=== PATIENT | male | born 1940 | race Caucasian/White ===

== ENCOUNTER 2025-09-28 19:49 | Observation (INO) | payer MEDICARE, SELFPAY ==
[2025-09-28] VITALS (7 sets, daily range): BP systolic 153–247; BP diastolic 57–101; PULSE 54; RESP 14–16; TEMP 37; O2SAT 97–100
--- NOTE | ~2025-09-28 | US_ITS ---
EXAMINATION: US retroperitoneal duplex ltd DATE: 09/30/2025 8:50 HOSPITALITY DIRECTOR INDICATION: Hypertension TECHNIQUE: Multiple grayscale, color Doppler, and pulsed Doppler images of the kidneys and renal arteries were obtained. COMPARISON: None. FINDINGS: EXAMINATION: US retroperitoneal duplex ltd DATE: 09/30/2025 8:52 HOSPITALITY DIRECTOR INDICATION: Hypertension TECHNIQUE: Multiple grayscale, color Doppler, and pulsed Doppler images of the kidneys and renal arteries were obtained. COMPARISON: None. FINDINGS: Status post right nephrectomy. Aorta systolic velocity 1 14 cm/s. Peak systolic velocity in the left renal artery is 1 77 cm/s. Notes: renal artery stenosis is >=180-200 cm/s or >3.5:1 ratio of renal artery velocity to aorta. This correlates with >50-60% stenosis. IMPRESSION: 1. No Doppler evidence of renal artery stenosis. Reviewed, dictated and finalized at location I. ITALITY DIRECTOR
--- NOTE | ~2025-09-28 | XR_ITS ---
XR chest 1V portable 09/28/2025 20:36 Indication: Hypertension. Nausea. Procedure: AP portable chest Comparison: No prior studies for comparison. Findings: Asymmetric left-sided airspace disease, compatible with pneumonia. Status post median sternotomy for CABG. Cardiomegaly. No significant effusion. No pneumothorax. No acute osseous abnormality. Impression: 1: Left-sided airspace disease, compatible with pneumonia. Reviewed, dictated and finalized at location I. TRICIAN CRANE MAINTENANCE Impression: 1: Left-sided airspace disease, compatible with pneumonia.
--- NOTE | 2025-09-28 20:20 | ED.GENADULT ---
HPI - General Adult General Chief complaint: Recheck/Abnormal Lab/Rx Stated complaint: UNCONTROLLED HTN Time Seen by Provider: 09/28/25 19:55 Source: patient and family Mode of arrival: EMS Limitations: no limitations History of Present Illness HPI narrative: Patient is an 85-year-old male presents to the emergency department complaining of a high blood pressure. Patient is and a assisted living facility, gets his blood pressure checked frequently, this afternoon it was high greater than 200, has been dealing with high blood pressures for some time now and is on multiple blood pressure medications and taking them as prescribed without any recent changes, also has p.r.n. medications that are given for a systolic blood pressure greater than 200, to get the p.r.n. medications as afternoon blood pressure remained persistently high. Patient is in the afternoon/ evening as he has been feeling well lately with nausea and fatigue with today being the worst. Patient denies any pain, difficulty breathing, focal weakness, confusion, decreased urine output. 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 Patient has Parkinson's. Patient is also had low blood pressures in the past and has been having difficulty getting his blood pressure under control. Patient denies any red vision changes, vomiting, fever. Related Data Allergies Allergy/AdvReac Type Severity Reaction Status Date / Time No Known Allergies Allergy Verified 09/28/25 20:03 Review of Systems Review of Systems: A 10 system review of systems was completed on the patient and is negative except for what is stated in the HPI. Nursing and ancillary documentation was reviewed. Exam Narrative: CONST: No acute distress. Well nourished. HENMT: Head is normocephalic and atraumatic. Moist mucous membranes. No posterior oropharynx erythema. EYES: No scleral icterus. No conjunctival injection or pallor. PERRL. NECK: No meningeal signs. RESP: Able to speak in full sentences. Normal respiratory effort. CTAB. CARDIO: Bradycardic rate. Regular rhythm. 2+ DP and radial pulses bilaterally. GI: Nondistended. No tenderness to palpation. Soft. : No CVA tenderness to palpation. SKIN: No rashes or lesions noted on exposed skin. NEURO: Oriented x3. No focal neurological deficits. EXTREM/MSK/BACK: No pedal edema. PSYCH: Normal affect. Course Vital Signs Vital signs: Vital Signs Temperature 98.6 F 09/28/25 19:55 Pulse Rate 54 L 09/28/25 19:55 Respiratory Rate 16 09/28/25 19:55 Blood Pressure 247/101 H 09/28/25 19:55 Pulse Oximetry 100 09/28/25 19:55 Oxygen Delivery Room Air 09/28/25 19:55 Temperature 98.6 F 09/28/25 19:55 Pulse Rate 60 09/29/25 00:03 Respiratory Rate 15 09/29/25 00:03 Blood Pressure 143/62 H 09/29/25 00:03 Pulse Oximetry 97 09/29/25 00:03 Oxygen Delivery Room Air 09/28/25 19:55 MDM MDM Narrative Medical decision making narrative: Patient presents with the above complaint. Initial vitals are remarkable for Blood pressure 247/101, pulse of 54. Physical examination as noted above. Plan discussed: laboratory analysis, EKG, imaging. Patient ordered hydralazine, Zofran. [facility] records reviewed showing that patient is on carbidopa levodopa, donepezil, levothyroxine, lisinopril 10 mg daily, metoprolol 25 mg b.i.d., quetiapine, trazodone, tamsulosin. Patient also has p.r.n. hydralazine 10 mg tablet every 6 hours as needed for SBP greater than 200 or DBP greater than 90. On reassessment patient resting comfortably, blood pressure is much improved to 100 50s over 50s, patient notes that he is due for his carbidopa levodopa, medication orders, patient notes that started has some chest pressure over the past to and 15 minutes, notes that he gets is when he is due for his carbidopa levodopa, will obtain a 3 hour troponin, family and patient for results of plan of care. Discussed likely increase of hydralazine as patient is on 10 mg p.o. p.r.n. and can increase to 25 mg p.r.n. for better blood pressure control at home. On repeat assessment patient is resting comfortably. No acute distress, denies any further chest discomfort. Repeat troponin came back it 0.03 which is greater than a 20% change. I spoke with the hospitalist on-call who has accepted the patient for admission. Differential Diagnosis Differential Diagnosis: hypertensive emergency, hypertension, metabolic derangement, electrolyte derangement, acute kidney injury, UTI, thyroid dysfunction. Lab Data [facility] Lab Attestation statement: I personally reviewed the patient's lab results. Lab results narrative: CBC reveals a hemoglobin of 11.4. Comprehensive metabolic panel reveals a sodium 135. Initial troponin is 0.023 with repeat troponin of 0.030. TSH is 3.78. Total creatine kinase is 109. Magnesium is 2.2. Urinalysis is without any significant abnormalities. Influenza and COVID and RSV testing are negative. 09/28/25 20:43 09/28/25 20:43 Labs: Lab Results 09/28/25 09/28/25 Range/Units 20:43 23:41 WBC 5.8 (4.5-10.0) K/mm3 RBC 3.51 L (4.6-6.20) M/mm3 Hgb 11.4 L (14.0-18.0) g/dL Hct 35.0 L (42.0-52.0) % MCV 99.7 (80-100) fl MCH 32.5 (26-34) pg MCHC 32.6 (32-36) g/dl RDW 12.5 (11.5-14.5) % Plt Count 167 (150-375) k/mm3 MPV 8.3 (7.4-10.4) fl Immature Gran % (Auto) 0.2 (0-0.5) % Neut % (Auto) 56.1 (45.5-73.1) % Lymph % (Auto) 26.0 (18.3-44.2) % Power % (Auto) 7.8 (2.6-8.5) % Eos % (Auto) 9.0 H (0-4.4) % Baso % (Auto) 0.9 (0.2-1.2) % Lymph # (Auto) 1.50 (0.9-3.2) K/mm3 Power # (Auto) 0.5 (0.1-0.6) K/mm3 Eos # (Auto) 0.5 H (0-0.3) K/mm3 Baso # (Auto) 0.1 (0.0-0.1) K/mm3 Abs Immat Gran (auto) 0.01 (0.00-0.031) K/mm3 Absolute Neuts (auto) 3.3 (1.3-6.7) K/mm3 Absolute Nucleated RBC 0.000 (0.0-0.012) K/mm3 Nucleated RBC % 0.0 (0.0-0.2) % Sodium 135 L (137-145) mmol/L Potassium 4.2 (3.4-5.0) mmol/L Chloride 105 (98-107) mmol/L Carbon Dioxide 28 (22-30) mmol/L Anion Gap 2 L (4-12) mmol/L BUN 16 (9-20) mg/dL Creatinine 1.30 (0.7-1.3) mg/dL Estim Creat Clear Calc 35 ml/min Estimated GFR 53 L (59 - ) Glucose 95 (65-110) mg/dL Calcium 8.9 (8.4-10.2) mg/dL Magnesium 2.2 (1.6-2.3) mg/dL Total Bilirubin 0.4 (0.2-1.3) mg/dL AST 25 (17-59) U/L ALT 6 (6-50) U/L Alkaline Phosphatase 91 (38-126) U/L Total Creatine Kinase 109 (55-170) U/L Troponin I 0.023 0.030 D (0.000-0.034) ng/mL Total Protein 6.7 (6.3-8.2) g/dL Albumin 3.8 (3.5-5.1) g/dL TSH (Reflex) 3.780 (0.465-4.68) uIU/mL Urine Color Yellow (Yellow) Urine Appearance Clear (Clear) Urine pH 7.5 (5.0-9.0) Ur Specific [place] 1.011 (1.001-1.035) Urine Protein Trace (Negative) mg/dL Urine Glucose (UA) Negative (Negative) mg/dL Urine Ketones Negative (Negative) mg/dL Ur Blood (Man) Negative (Negative) Urine Nitrate Negative (Negative) Urine Bilirubin Negative (Negative) Urine Urobilinogen 0.2 (<2.0) mg/dL Leukocyte Esterase Rfl Negative (Negative) KELLEN/UL Urine RBC 0-2 (0-2) /hpf Urine WBC 0-5 (0-3) /hpf Ur Squamous Epith Cells None seen (Few) /hpf Urine Bacteria None seen /hpf Urine Casts 0-2 Influenza A (RT-PCR) Negative (Negative) Influenza B (RT-PCR) Negative (Negative) RSV (RT-PCR) Negative (Negative) SARS-CoV-2 RNA (RT-PCR) Negative (Negative) Imaging Data Attestation: I personally reviewed and interpreted this imaging study as follows: My impression: No old to compare to, no obvious acute cardiopulmonary process. ECG Data EKG #1: Attestation: I personally reviewed and interpreted this ECG as follows: ECG completion date: 09/28/25 ECG completion time: 20:44 Interpretation: rate of 53, rhythm is sinus bradycardia, axis is indeterminate, QRS duration is 120 milliseconds, possible right ventricular conduction delay, borderline ST depression in lead V5, baseline artifact present, no ST elevation, no overt T-wave abnormalities. Discharge Plan Discharge Clinical Impression: Hypertension, Chest pain Patient Disposition: Still a Patient Condition: Guarded Prognosis Patient Language: Canadian Follow-up/Referrals: UNKNOWN,DOCTOR [Primary Care Provider] Time of Disposition: 00:40 Quality HEART score for chest pain patients History: slightly suspicious ECG: non specific repolarization disturbance/LBTB/PM Age: > or = to 65 years Risk factors: > or = to 3 risk factors of atherosclerotic disease Troponin: < or = to 1x normal limit Heart score: 5
--- NOTE | 2025-09-28 20:21 | ECG_ITS ---
Test Date: 2025-09-28 20:44:07 Measurements Intervals [place] Rate: 53 P: 22 ID: [id number] QRS: -6 QRSD: 120 T: 36 QT: 455 QTc: 431 Interpretive Statements SINUS BRADYCARDIA POSSIBLE RIGHT VENTRICULAR CONDUCTION DELAY CANNOT R/O SEPTAL INFARCT, AGE INDETERMINATE BORDERLINE ST-T WAVE ABNORMALITY- HIGH LATERAL LEADS BASELINE ARTIFACT- I, II, III, AVR, AVL, AVF, V1-V6 ABNORMAL ECG No previous ECG available for comparison Electronically Signed On 09-29-2025 06:13:12 MASTER FISHER by Lanre Krueger D.O.
[2025-09-28] MEDS: ONDANSETRON INJ 4 MG/2 ML VIAL IV PUSH (20:52)
[2025-09-28 21:11] LABS: Hematocrit 35.0 % (42.0-52.0); Hemoglobin 11.4 g/dL (14.0-18.0); Immature Granulocyte Percent A 0.2 % (0-0.5); Lymphocytes Absolute Auto 1.50 K/mm3 (0.9-3.2); Mean Corpuscular HGB Conc 32.6 g/dl (32-36); Mean Corpuscular Hemoglobin 32.5 pg (26-34); Mean Corpuscular Volume 99.7 fl (80-100); Nucleated Red Blood Cells Absolute Auto 0.000 K/mm3 (0.0-0.012); Nucleated Red Blood Cells Perc 0.0 % (0.0-0.2); Platelet Count Result 167 k/mm3 (150-375); Red Blood Count 3.51 M/mm3 (4.6-6.20); White Blood Count 5.8 K/mm3 (4.5-10.0)
[2025-09-28 21:15] LABS: Add Urine Microscopic? YES; Appearance Urine Clear (Clear); Glucose Urine UA Negative (Negative); Leukocyte Esterase Ur Negative LEU/UL (Negative); Nitrate Urine Negative (Negative); Non Pathogenic Casts 0-2; Specific Grav Ur 1.011 (1.001-1.035)
[2025-09-28 21:22] LABS: Alanine Aminotransferase 6 U/L (6-50); Albumin Level 3.8 g/dL (3.5-5.1); Alkaline Phosphatase 91 U/L (38-126); Anion Gap 2 mmol/L (4-12); Aspartate Amino Transferase 25 U/L (17-59); Bilirubin,Total 0.4 mg/dL (0.2-1.3); Blood Urea Nitrogen 16 mg/dL (9-20); Calcium 8.9 mg/dL (8.4-10.2); Carbon Dioxide 28 mmol/L (22-30); Chloride 105 mmol/L (98-107); Creatine Kinase 109 U/L (55-170); Estimated CRCL calculation 35 ml/min; Estimated Glomerular Filt Rate 53; Glucose 95 mg/dL (65-110); Magnesium 2.2 mg/dL (1.6-2.3); Potassium 4.2 mmol/L (3.4-5.0); Sodium 135 mmol/L (137-145); Total Protein 6.7 g/dL (6.3-8.2)
[2025-09-28 21:33] LABS: Troponin I 0.023 ng/mL (0.000-0.034)
[2025-09-28 21:49] LABS: Influenza A QL RT-PCR Negative (Negative); Influenza B QL RT-PCR Negative (Negative); RSV RNA, RT-PCR Negative (Negative); SARS-CoV-2 RNA PCR Negative (Negative)
[2025-09-28 21:54] LABS: Thyroid Stimulating Hormone Reflex 3.780 uIU/mL (0.465-4.68)
[2025-09-28] MEDS: CARBIDOPA/LEVODOPA 25/100 MG CR TABLET 2 TABLET PO (22:52)
[2025-09-28] MEDS: ASPIRIN 81 MG CHEWABLE TABLET 324 MG PO (22:52)
[2025-09-28] MEDS: SODIUM CHLORIDE 0.9% IV 1,000 ML 150 ML IV CONT (22:53)
--- NOTE | 2025-09-28 23:43 | ECG_ITS ---
Test Date: 2025-09-28 23:51:18 Measurements Intervals [place] Rate: 61 P: 35 IL: 194 QRS: 4 QRSD: 121 T: 33 QT: 450 QTc: 457 Interpretive Statements SINUS RHYTHM POSSIBLE RIGHT VENTRICULAR CONDUCTION DELAY CANNOT R/O SEPTAL INFARCT, AGE INDETERMINATE BASELINE ARTIFACT- I, III, AVR, AVL ABNORMAL ECG Compared to ECG 09/28/2025 20:44:07 HEART RATE HAS INCREASED Electronically Signed On 09-29-2025 06:17:30 ELEVATOR ERECTOR by Lanre Krueger D.O.
[2025-09-29] VITALS (22 sets, daily range): BP systolic 142–208; BP diastolic 51–87; PULSE 53–71; RESP 13–19; TEMP 36.3–36.8; O2SAT 95–100
[2025-09-29 00:16] LABS: Troponin I 0.030 ng/mL (0.000-0.034)
--- NOTE | 2025-09-29 02:43 | ECG_ITS ---
Test Date: 2025-09-29 02:49:39 Measurements Intervals [place] Rate: 60 P: 4 MD: 149 QRS: -9 QRSD: 118 T: 32 QT: 440 QTc: 442 Interpretive Statements SINUS RHYTHM INCOMPLETE RIGHT BUNDLE BRANCH BLOCK BASELINE ARTIFACT- I, III, AVR, AVL BORDERLINE ECG Compared to ECG 09/28/2025 23:51:18 NO SIGNIFICANT CHANGE Electronically Signed On 09-29-2025 06:19:01 ACCOUNT DEVELOPMENT MANAGER by Lanre Krueger D.O.
[2025-09-29] MEDS: ACETAMINOPHEN 500 MG TABLET 1000 MG PO (03:37)
[2025-09-29 03:40] LABS: Troponin I 0.060 ng/mL (0.000-0.034)
--- NOTE | 2025-09-29 03:53 | WPCEDHO ---
ED Hand Off Checklist All vitals saved: y IV Site documented: y All med administrations documented: y Triage Note Triage Note via ems from Aguilar Senior 09/28/25 19:55 Living with c/o htn crisis. pt bp has been in the 240's since 4pm today despite taking his home dose of htn meds. Normally goes to [facility] but ems came here due to snow. Allergies No Known Allergies Allergy (Verified 09/28/25 20:03) Active Medications including assessments/comments Sodium Chloride (Normal Saline Iv) 1,000 mls @ 150 mls/hr IV CONT .[id number] STA Stop: 09/29/25 04:31 Last Admin: 09/28/25 22:53 Dose: 150 mls/hr Documented By: VALERIE Infusion/Titration Document 09/28/25 22:53 VALERIE (Rec: 09/28/25 22:53 VALERIE [id number]) Intake IV Site Peripheral Access Left Antecubital Container Volume 1,000 Waste Amount 0 Dosing Infusion Rate 150 Cumulative Dose Not Applicable Increase/Decrease Started Elapsed Time Elapsed Time ( 0m minutes) Administered/Completed Medications Discontinued Medications Acetaminophen (Acetaminophen 500 Mg Tablet) 1,000 mg PO ONCE ONE Stop: 09/29/25 03:31 Last Admin: 09/29/25 03:37 Dose: 1,000 mg Documented By: CARLENE Aspirin (Aspirin 81 Mg Chewable Tablet) 324 mg PO ONCE STA Stop: 09/28/25 22:05 Last Admin: 09/28/25 22:52 Dose: 324 mg Documented By: VALERIE Carbidopa/Levodopa (Carbidopa/Levodopa 25/100 Mg Cr Tablet) 2 tablet PO ONCE STA Stop: 09/28/25 21:55 Last Admin: 09/28/25 22:52 Dose: 2 tablet Documented By: VALERIE Hydralazine HCl (Hydralazine Hcl 20 Mg/Ml Vial) 10 mg IV PUSH ONCE ONE Stop: 09/28/25 20:24 Last Admin: 09/28/25 20:52 Dose: 10 mg Documented By: CARLENE Ondansetron HCl (Ondansetron Inj 4 Mg/2 Ml Vial) 4 mg IV PUSH ONCE STA Stop: 09/28/25 20:24 Last Admin: 09/28/25 20:52 Dose: 4 mg Documented By: CARLENE Interventions/Assessments IV / Saline Lock, Insert Start: 09/28/25 19:41 Freq: Status: Active Protocol: Document 09/28/25 20:02 CARLENE (Rec: 09/28/25 20:02 SAK [id number]) IV Assessment Peripheral Access Left Antecubital IV Catheter Access Initiated IV Insertion Date 09/28/25 IV Insertion Time 20:02 Catheter Gauge 18 IV Insertion 1 Attempts Ultrasound Used for No Placement IV Site Assessment WNL IV Care and WNL Maintenance Last Vital Signs Temperature 98.6 F 09/28/25 19:55 Pulse Rate 60 09/29/25 02:25 Respiratory Rate 16 09/29/25 02:25 Pulse Oximetry 99 09/29/25 02:25 Blood Pressure 171/75 H 09/29/25 02:25 Blood Pressure Mean 107 09/29/25 02:25 Blood Pressure Position Supine 09/29/25 02:25 Oxygen Delivery Room Air 09/28/25 19:55 Weight 80 kg 09/28/25 19:55 Last Result - Abnormals Only RBC 3.51 M/mm3 (4.6-6.20) L 09/28/25 20:43 Hgb 11.4 g/dL (14.0-18.0) L 09/28/25 20:43 Hct 35.0 % (42.0-52.0) L 09/28/25 20:43 Eos % (Auto) 9.0 % (0-4.4) H 09/28/25 20:43 Eos # (Auto) 0.5 K/mm3 (0-0.3) H 09/28/25 20:43 Sodium 135 mmol/L (137-145) L 09/28/25 20:43 Anion Gap 2 mmol/L (4-12) L 09/28/25 20:43 Estimated GFR 53 (59-) L 09/28/25 20:43 Troponin I 0.060 ng/mL (0.000-0.034) H* D 09/29/25 03:07 Most Recent Suicide Severity Rating Suicide Severity Rating NO RISK INDICATED 09/28/25 19:55
--- NOTE | 2025-09-29 04:07 | ADMGEN ---
This patient, Spencer Ayoub, was admitted to IMU Room 206-01. Patient/family oriented to hospital policies and general routines including ID bracelet, bed and alarms, visiting hours, pain management, procedures, bathroom and other care routines, personal items, smoking policy, room service/diet, and visiting hours. Information on how to activate the Rapid Response Team has been discussed. Patient/Family are encouraged to report perceived risks to care and to ask questions if they do not understand what they are told or what they should do.
--- NOTE | 2025-09-29 05:58 | P.HP_ITS ---
H&P: HPI History of Present Illness Date/Time: 09/29/25 05:58 Chief Complaint: Chest pain and uncontrolled hypertension. Narrative: This is an 85-year-old male patient who resides at [facility]. Has a history of Parkinson's and hypertension. The patient was brought to the emergency room because his blood pressures have been running high. The is at the bedside offering history. She stated that his blood pressures sequence go up and down. The patient was recently prescribed a p.r.n. high blood pressure medication.The patient has been feeling unwell for several days . The patient typically has all of his care at [facility]. However the ambulance was not able to take him to [facility] because of the weather. His H&H is 11.4 and 35.0. Sodium 135 with an anion gap of 2. Troponin 0.23, 0.03, 0.060. 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 The patient stated that he was having some chest pressure when his blood pressure was elevated. EKG was read as incomplete right bundle-branch block. Borderline EKG. Heart rate 60. His heart score is 5. Chest x-ray was performed and nothing acute seen on the chest x-ray however there is evidence of open-heart surgery. The patient was given his dose of carbidopa levodopa and an aspirin in the emergency room. Patient's blood pressure is were initially 240/87. The lowest blood pressure noted was 165/71. The patient is being admitted to observation status on the date of service of 09/29/2025 Review of Systems Constitutional: Constitutional: Reports as per HPI and Reports no additional constitutional complaints Eyes: Eyes: Reports as per HPI and Reports no additional eye complaints ENT: Reports system reviewed and no additional complaints, except as documented and Reports Normal hearing present Cardiovascular: Cardiovascular: Reports no additional cardiovascular complaints Respiratory: Respiratory: Reports as per HPI and Reports no additional respiratory complaints Gastrointestinal: Gastrointestinal: Reports as per HPI and Reports no additional gastrointestinal complaints Musculoskeletal: Musculoskeletal: Reports no additional musculoskeletal complaints Integumentary/Breasts: Skin/Breast: Reports system reviewed and no additional complaints, except as docu Neurologic: Reports system reviewed and no additional complaints, except as documented and Reports Normal hearing present Psychiatric: Psychiatric: Reports no additional psychiatric complaints and Reports as per HPI Hematologic/Lymphatic: Hematologic/Lymphatic: Reports no additional hematologic/lymphatic complaints Allergic/Immunologic: Allergic/Immunologic: Reports no additional allergic/immunologic complaints REPLACED BY [facility] Past Medical History Medical History (Updated 09/29/25 @ 16:52 by Kerrie Law MD) Hypothyroidism CABG (coronary artery bypass graft) planned 5 vessel Retinal detachment Several years ago. 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 He has 2 children and she has 2 children. He is retired. Code status: DNR Smoking status: Never smoker Alcohol intake: never Substance use: never Lack of Transportation: No Lack of Food: Never True Current Housing: I Have Housing Concerned About Future Housing: No Difficulty Paying Gas/Electric Bills: No Difficulty Paying for Meds: No Currently Unemployed: No Education: Decline to Answer Difficulty w/ Childcare or Family Care: No Spiritual care concerns: No Meds Home Medications and Allergies Home Medications ?Medication ?Instructions ?Recorded ?Confirmed ?Type acetaminophen 500 mg tablet 500 mg PO DAILY 09/29/25 1 11/30/24 History aspirin,buffered (calcium 325 tablet PO HS 09/29/25 History carbonate-magnesium) 325 mg tablet (Tri-Buffered Aspirin) carbidopa 25 mg-levodopa 100 mg See Rx Instructions .R oute .COMPLEX 09/29/25 09/29/25 History tablet carbidopa ER 50 mg-levodopa 200 mg 1 tablet PO DAILY@1 900 09/29/25 09/29/25 History tablet,extended release cyanocobalamin (vitamin B-12) 500 500 mcg PO DAILY 12/2309/29/25 History mcg tablet donepezil 23 mg tablet 23 mg PO DAILY 09/29/2512/23 History ezetimibe 10 mg tablet 10 mg PO DAILY 09/29/2512/23 History levothyroxine 112 mcg tablet 112 mcg PO DAILY 09/29/25 09/29/25 History metoprolol tartrate 25 mg tablet 25 mg PO BID 09/29/25 09/29/25 History polyethylene glycol 3350 17 17 g PO DAILY@0800 5 09/29/25 History gram/dose oral powder quetiapine 25 mg tablet 25 mg PO DAILY@0800 09/29/25 09/29/25 History quetiapine 50 mg tablet 50 mg PO HS 09/29/25 5 History white petrolatum-mineral oil 94 1 applic EACH EYE HS 1 11/30/24 09/29/25 History %-3 % eye ointment hydralazine 25 mg tablet 25 mg PO TID PRN hypertensio n #90 09/30/25 Rx tabs nifedipine 30 mg tablet,extended 30 mg PO DAILY #30 ta bs 09/30/25 Rx release tamsulosin 0.4 mg capsule 0.4 mg PO DAILY 09/30/2501/20 History Allergies Allergy/AdvReac Type Severity Reaction Status Date / Time No Known Allergies Allergy Verified 09/29/25 04:07 Vital Signs Vital Signs - 24 hr 09/28/25 19:55 09/28/25 20:11 09/28/25 20:15 Temperature 98.6 F Pulse Rate 54 L Respiratory Rate 16 Blood Pressure 247/101 H Pulse Oximetry 100 100 99 Oxygen Delivery Room Air 09/28/25 20:19 09/28/25 20:30 09/28/25 20:32 Temperature Pulse Rate Respiratory Rate Blood Pressure 240/87 H 204/89 H Pulse Oximetry 98 98 98 Oxygen Delivery 09/28/25 20:51 09/29/25 00:03 09/29/25 02:25 Temperature Pulse Rate 54 L 60 60 Respiratory Rate 14 15 16 Blood Pressure 153/57 H 143/62 H 171/75 H Pulse Oximetry 97 97 99 Oxygen Delivery 09/29/25 02:46 09/29/25 03:59 09/29/25 04:30 Temperature 97.6 F Pulse Rate 62 67 67 Respiratory Rate 19 13 18 Blood Pressure 165/71 H 189/83 H 201/87 H Pulse Oximetry 96 97 95 Oxygen Delivery Exam Const: General: cooperative, healthy appearing, no acute distress, well developed, awake, Physically active, average body habitus and well nourished Nutritional Appearance: average body habitus and well nourished Orientation/consciousness: oriented to person and oriented to place HENMT: Head: normal to inspection, No palpable skull fracture present, normocephalic, atraumatic and abrasion Eyes: General: appearance normal, both eyes and all related structures Alignment and Position: alignment normal Periorbital: periorbital findings normal Eyelids: eyelids normal Other: I did not assess the right eye as it is covered. Neck: Neck: normal visual inspection, full ROM, no lymphadenopathy, trachea midline and supple Chest: Chest palpation & inspection: normal inspection of the chest Resp: Effort & Inspection: normal respiratory effort Auscultation: clear to auscultation bilaterally Percussion: percussion normal Cardio: Palpation: normal PMI Rate: regular rate Rhythm: regular rhythm Heart sounds: S1 normal heart sound present and S2 normal heart sound present Peripheral pulses: Peripheral pulses 2+ throughout GI: Inspection: normal to inspection Percussion: Yes normal to percussion Auscultation: normal bowel sounds Rectal Exam: deferred : General: Yes no CVA tenderness Skin: General skin exam: normal color Lesions: no lesions Rashes: no rashes Trauma: no lacerations or abrasions Wounds: no wounds Hair: normal Nails: normal Neuro: General: oriented to person, oriented to place, oriented to time and patient oriented x3 Cranial nerves: Yes Normal hearing present Cognition (Neuro): normal cognition Speech: normal speech Motor exam (neuro): 5/5 motor strength present throughout Sensory Exam: normal sensation Other: The stated that he has been having some hallucinations. Extrem: General: normal to inspection Right upper extremity: normal to inspection and shoulder/upper arm Left upper extremity: normal to inspection and shoulder/upper arm Right lower extremity: normal to inspection Left lower extremity: normal to inspection Psych: Appearance: grossly normal Mental Status: mental status grossly normal Speech and movement: Normal speech and movement present Affect: normal affect Attitude: cooperative Thought process: Normal thought process present Thought content: Yes Normal thought content present Results Labs Labs: Short CBC 09/28/25 Range/Units 20:43 WBC 5.8 (4.5-10.0) K/mm3 Hgb 11.4 L (14.0-18.0) g/dL Hct 35.0 L (42.0-52.0) % Plt Count 167 (150-375) k/mm3 [facility] 09/28/25 20:43 Sodium 135 L Potassium 4.2 Chloride 105 Carbon Dioxide 28 BUN 16 Creatinine 1.30 Glucose 95 Calcium 8.9 Cardiac Enzymes 09/28/25 09/28/25 09/29/25 Range/Units 20:43 23:41 03:07 Total Creatine Kinase 109 (55-170) U/L Troponin I 0.023 0.030 D 0.060 H* D (0.000-0.034) ng/mL Liver Function 09/28/25 Range/Units 20:43 Total Bilirubin 0.4 (0.2-1.3) mg/dL AST 25 (17-59) U/L ALT 6 (6-50) U/L Alkaline Phosphatase 91 (38-126) U/L Albumin 3.8 (3.5-5.1) g/dL Urine 09/28/25 Range/Units 20:43 Urine Color Yellow (Yellow) Urine Appearance Clear (Clear) Urine pH 7.5 (5.0-9.0) Ur Specific [place] 1.011 (1.001-1.035) Urine Protein Trace (Negative) mg/dL Urine Glucose (UA) Negative (Negative) mg/dL ECG Interpretation: ntervals [place] Rate: 60 P: 4 NH: 149 QRS: -9 QRSD: 118 T: 32 QT: 440 QTc: 442 Interpretive Statements SINUS RHYTHM INCOMPLETE RIGHT BUNDLE BRANCH BLOCK BASELINE ARTIFACT- I, III, AVR, AVL BORDERLINE ECG Compared to ECG 09/28/2025 23:51:18 NO SIGNIFICANT CHANGE Electronically Signed On 09-29-2025 06:19:01 PRACTICE ARCHITECT by Lanre Lynn VTE Prophylaxis VTE prophylaxis: mechanical ordered Assessment and Plan Assessment and plan (1) Chest pain: Code(s): R07.9 - Chest pain, unspecified Status: Acute Assessment and Plan: -the patient has a history of 5 vessel CABG. He typically sees a senior financial reporting accountant at [facility] however the ambulance was unable to take him to [facility] due to the weather. The was able to pull up the echo that he had performed March this year. Since the patient had a normal in ejection fraction. I have requested records from the senior financial reporting accountant. -his elevated troponin could possibly be ischemic demand from sustained hypertension. -I consulted Nephrology for uncontrolled hypertension. -cardiology has been consulted as well. -continue with aspirin. 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 Since then he has had uncontrolled hypertension. Patient's blood pressures fluctuate often. -continue with metoprolol tartrate. Continue lisinopril and monitor renal function closely. -p.r.n. hydralazine with parameters. (3) Parkinsons: Code(s): G20.A1 - Parkinson's disease without dyskinesia, without mention of fluctuations Status: Acute Assessment and Plan: -continue with carbidopa levodopa. (4) Hypothyroidism: Code(s): E03.9 - Hypothyroidism, unspecified Status: Acute Assessment and Plan: -continue with levothyroxine.
[2025-09-29 06:36] LABS: Hematocrit 36.8 % (42.0-52.0); Hemoglobin 12.2 g/dL (14.0-18.0); Mean Corpuscular HGB Conc 33.2 g/dl (32-36); Mean Corpuscular Hemoglobin 33.2 pg (26-34); Mean Corpuscular Volume 100.0 fl (80-100); Platelet Count Result 164 k/mm3 (150-375); Red Blood Count 3.68 M/mm3 (4.6-6.20); White Blood Count 7.6 K/mm3 (4.5-10.0)
[2025-09-29 06:48] LABS: Anion Gap 4 mmol/L (4-12); Blood Urea Nitrogen 15 mg/dL (9-20); Calcium 8.8 mg/dL (8.4-10.2); Carbon Dioxide 25 mmol/L (22-30); Chloride 107 mmol/L (98-107); Estimated CRCL calculation 44 ml/min; Estimated Glomerular Filt Rate 55; Glucose 100 mg/dL (65-110); Potassium 3.9 mmol/L (3.4-5.0); Sodium 136 mmol/L (137-145)
[2025-09-29] MEDS: LEVOTHYROXINE SODIUM 112 MCG TABLET PO (06:48)
[2025-09-29 07:02] LABS: Troponin I 0.070 ng/mL (0.000-0.034)
--- NOTE | 2025-09-29 08:27 | PM.IMPN2 ---
Subjective Date/time seen: 09/29/25 08:27 Objective Data Vital Signs Vital Signs: Vital Signs - 24 hr 09/28/25 19:55 09/28/25 20:11 09/28/25 20:15 Temperature 98.6 F Pulse Rate 54 L Respiratory Rate 16 Blood Pressure 247/101 H Pulse Oximetry 100 100 99 Oxygen Delivery Room Air 09/28/25 20:19 09/28/25 20:30 09/28/25 20:32 Temperature Pulse Rate Respiratory Rate Blood Pressure 240/87 H 204/89 H Pulse Oximetry 98 98 98 Oxygen Delivery 09/28/25 20:51 09/29/25 00:03 09/29/25 02:25 Temperature Pulse Rate 54 L 60 60 Respiratory Rate 14 15 16 Blood Pressure 153/57 H 143/62 H 171/75 H Pulse Oximetry 97 97 99 Oxygen Delivery 09/29/25 02:46 09/29/25 03:59 09/29/25 04:30 Temperature 97.6 F Pulse Rate 62 67 67 Respiratory Rate 19 13 18 Blood Pressure 165/71 H 189/83 H 201/87 H Pulse Oximetry 96 97 95 Oxygen Delivery 09/29/25 06:00 09/29/25 06:13 Temperature Pulse Rate 71 Respiratory Rate Blood Pressure Pulse Oximetry Oxygen Delivery Room Air Intake/Output Intake/Output: Intake & Output 09/26/25 09/27/25 09/28/25 09/29/25 23:59 23:59 23:59 23:59 Intake Total 1000 Output Total 0 Balance 1000 Meds/Results Medications: Active Medications Generic Name Dose Route Start Last Admin Trade Name Freq PRN Reason Stop Dose Admin Acetaminophen 500 mg 09/29/25 09:00 Acetaminophen 500 Mg Tablet PO DAILY [facility] Aspirin 81 mg 09/29/25 08:00 Aspirin 81 Mg Enteric Tablet PO DAILY@0800 [facility] Aspirin Buffered 325 mg 09/29/25 21:00 Aspirin/Magnesium/Calcium Carb 325 Mg Tablet (Bufferin) PO HS [facility] Carbidopa/Levodopa 2 tablet 09/29/25 19:00 Carbidopa/Levodopa 25/100 Mg Cr Tablet PO DAILY@1900 [facility] Carbidopa/Levodopa 1 tablet 09/29/25 09:00 Carbidopa/Levodopa 25/100 Mg Tablet PO DAILY [facility] Cyanocobalamin 500 mcg 09/29/25 09:00 Cyanocobalamin 500 Mcg Tablet PO DAILY [facility] Donepezil HCl 20 mg 09/29/25 21:00 Donepezil Hcl 10 Mg Tablet PO HS [facility] Ezetimibe 10 mg 09/29/25 09:00 Ezetimibe 10 Mg Tablet PO DAILY [facility] Hydralazine HCl 10 mg 09/29/25 07:09 Hydralazine Hcl 20 Mg/Ml Vial IV PUSH Q8H PRN Blood Pressure - High Levothyroxine Sodium 112 mcg 09/29/25 06:30 09/29/25 06:48 Levothyroxine Sodium 112 Mcg Tablet PO 112 mcg DAILY@0630 [facility] Administration Lisinopril 10 mg 09/29/25 08:00 Lisinopril 10 Mg Tablet PO DAILY@0800 [facility] Metoprolol Tartrate 25 mg 09/29/25 09:00 Metoprolol Tartrate 25 Mg Tablet PO Q12HR [facility] Multi-Ingred Cream/Lotion/Oil/Oint 1 applic 09/29/25 21:00 Mineral Oil/White Petrolatum Ointment EACH EYE [facility] Ondansetron HCl 4 mg 09/29/25 00:38 Ondansetron Inj 4 Mg/2 Ml Vial IV PUSH Q4H PRN Nausea Polyethylene Glycol 17 gm 09/29/25 08:00 Polyethylene Glycol 3350 17 Gm Powd.Pack PO DAILY@0800 [facility] Quetiapine Fumarate 25 mg 09/29/25 08:00 Quetiapine Fumarate 25 Mg Tablet PO DAILY@0800 [facility] Quetiapine Fumarate 50 mg 09/29/25 21:00 Quetiapine Fumarate 25 Mg Tablet PO [facility] Labs Labs: Laboratory Results - last 24 hr 09/28/25 09/28/25 09/29/25 20:43 23:41 03:07 WBC 5.8 RBC 3.51 L Hgb 11.4 L Hct 35.0 L MCV 99.7 MCH 32.5 MCHC 32.6 RDW 12.5 Plt Count 167 MPV 8.3 Immature Gran % (Auto) 0.2 Neut % (Auto) 56.1 Lymph % (Auto) 26.0 Snyder % (Auto) 7.8 Eos % (Auto) 9.0 H Baso % (Auto) 0.9 Lymph # (Auto) 1.50 Snyder # (Auto) 0.5 Eos # (Auto) 0.5 H Baso # (Auto) 0.1 Abs Immat Gran (auto) 0.01 Absolute Neuts (auto) 3.3 Absolute Nucleated RBC 0.000 Nucleated RBC % 0.0 Sodium 135 L Potassium 4.2 Chloride 105 Carbon Dioxide 28 Anion Gap 2 L BUN 16 Creatinine 1.30 Estim Creat Clear Calc 35 Estimated GFR 53 L Glucose 95 Calcium 8.9 Magnesium 2.2 Total Bilirubin 0.4 AST 25 ALT 6 Alkaline Phosphatase 91 Total Creatine Kinase 109 Troponin I 0.023 0.030 D 0.060 H* D Total Protein 6.7 Albumin 3.8 TSH (Reflex) 3.780 Urine Color Yellow Urine Appearance Clear Urine pH 7.5 Ur Specific [place] 1.011 Urine Protein Trace Urine Glucose (UA) Negative Urine Ketones Negative Ur Blood (Man) Negative Urine Nitrate Negative Urine Bilirubin Negative Urine Urobilinogen 0.2 Leukocyte Esterase Rfl Negative Urine RBC 0-2 Urine WBC 0-5 Ur Squamous Epith Cells None seen Urine Bacteria None seen Urine Casts 0-2 Influenza A (RT-PCR) Negative Influenza B (RT-PCR) Negative RSV (RT-PCR) Negative SARS-CoV-2 RNA (RT-PCR) Negative 09/29/25 06:27 WBC 7.6 RBC 3.68 L Hgb 12.2 L Hct 36.8 L MCV 100.0 MCH 33.2 MCHC 33.2 RDW 12.6 Plt Count 164 MPV 8.3 Immature Gran % (Auto) Neut % (Auto) Lymph % (Auto) Snyder % (Auto) Eos % (Auto) Baso % (Auto) Lymph # (Auto) Snyder # (Auto) Eos # (Auto) Baso # (Auto) Abs Immat Gran (auto) Absolute Neuts (auto) Absolute Nucleated RBC Nucleated RBC % Sodium 136 L Potassium 3.9 Chloride 107 Carbon Dioxide 25 Anion Gap 4 BUN 15 Creatinine 1.25 Estim Creat Clear Calc 44 Estimated GFR 55 L Glucose 100 Calcium 8.8 Magnesium Total Bilirubin AST ALT Alkaline Phosphatase Total Creatine Kinase Troponin I 0.070 H* Total Protein Albumin TSH (Reflex) Urine Color Urine Appearance Urine pH Ur Specific Guy Urine Protein Urine Glucose (UA) Urine Ketones Ur Blood (Man) Urine Nitrate Urine Bilirubin Urine Urobilinogen Leukocyte Esterase Rfl Urine RBC Urine WBC Ur Squamous Epith Cells Urine Bacteria Urine Casts Influenza A (RT-PCR) Influenza B (RT-PCR) RSV (RT-PCR) SARS-CoV-2 RNA (RT-PCR)
[2025-09-29] MEDS: EZETIMIBE 10 MG TABLET PO (09:20)
[2025-09-29] MEDS: ACETAMINOPHEN 500 MG TABLET PO (09:20)
[2025-09-29] MEDS: CARBIDOPA/LEVODOPA 25/100 MG TABLET 1 TABLET PO ×2 (09:20→16:15)
[2025-09-29] MEDS: ASPIRIN 81 MG ENTERIC TABLET PO (09:20)
[2025-09-29] MEDS: CYANOCOBALAMIN 500 MCG TABLET PO (09:20)
[2025-09-29] MEDS: METOPROLOL TARTRATE 25 MG TABLET PO ×2 (09:20→20:19)
[2025-09-29 10:02] LABS: Troponin I 0.064 ng/mL (0.000-0.034)
--- NOTE | 2025-09-29 11:16 | PM.CNNEP ---
Assessment and Plan Assessment and plan (1) Hypertension: Code(s): I10 - Essential (primary) hypertension Status: Chronic Assessment and Plan: quite elevated on presentation per family, his BP has been more erratic in the last few months his assisted living facility has him on PRN oral hydralazine when his systolic BP spikes suspect his fluctuating BP is more related to his Parkinson's Disease (and associated autonomic dysfunction) rather than secondary to his solitary kidney... will increase his lisinopril to 10mg BID and this could be titrated based on his BP readings alternatively, his PRN hydralazine dose could be increased to 25mg TID/QID PRN as well check renal duplex to r/o renal artery stenosis follow trend of his hemodynamics Discussed case with patient's daughter and son-in-law at bedside I will continue to follow the patient with you while he remains hospitalized and make further recommendations as deemed necessary. Thank you for allowing me to participate in the care of this patient. History of Present Illness Reason for Consult Consult date: 09/30/25 Reason for consult: Other (Hypertension) Chief Complaint Chief complaint: Chest pain PMFSH Past Medical History Medical History Hypothyroidism CABG (coronary artery bypass graft) planned 5 vessel Retinal detachment Several years ago. 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 He has 2 children and she has 2 children. He is retired. Code status: DNR Smoking status: Never smoker Alcohol intake: never Substance use: never Lack of Transportation: No Lack of Food: Never True Current Housing: I Have Housing Concerned About Future Housing: No Difficulty Paying Gas/Electric Bills: No Difficulty Paying for Meds: No Currently Unemployed: No Education: Decline to Answer Difficulty w/ Childcare or Family Care: No Spiritual care concerns: No Meds Home Medications and Allergies Home Medications ?Medication ?Instructions ?Recorded ?Confirmed ?Type acetaminophen 500 mg tablet 500 mg PO DAILY 09/29/25 09/29/25 History aspirin,buffered (calcium 325 tablet PO HS 09/29/25 09/29/25 History carbonate-magnesium) 325 mg tablet (Tri-Buffered Aspirin) carbidopa 25 mg-levodopa 100 mg See Rx Instructions .Route .COMPLEX 09/29/25 09/29/25 History tablet carbidopa ER 50 mg-levodopa 200 mg 1 tablet PO DAILY@1900 09/29/25 09/29/25 History tablet,extended release cyanocobalamin (vitamin B-12) 500 500 mcg PO DAILY 09/29/25 09/29/25 History mcg tablet donepezil 23 mg tablet 23 mg PO DAILY 09/29/25 09/29/25 History ezetimibe 10 mg tablet 10 mg PO DAILY 09/29/25 09/29/25 History levothyroxine 112 mcg tablet 112 mcg PO DAILY 09/29/25 09/29/25 History metoprolol tartrate 25 mg tablet 25 mg PO BID 09/29/25 09/29/25 History polyethylene glycol 3350 17 17 g PO DAILY@0800 09/29/25 09/29/25 History gram/dose oral powder quetiapine 25 mg tablet 25 mg PO DAILY@0800 09/29/25 09/29/25 History quetiapine 50 mg tablet 50 mg PO HS 09/29/25 09/29/25 History white petrolatum-mineral oil 94 1 applic EACH EYE HS 09/29/25 09/29/25 History %-3 % eye ointment hydralazine 25 mg tablet 25 mg PO TID PRN hypertension #90 09/30/25 Rx tabs nifedipine 30 mg tablet,extended 30 mg PO DAILY #30 tabs 09/30/25 Rx release tamsulosin 0.4 mg capsule 0.4 mg PO DAILY 09/30/25 09/30/25 History Allergies Allergy/AdvReac Type Severity Reaction Status Date / Time No Known Allergies Allergy Verified 09/30/25 18:00 Vital Signs Vital Signs Temp Pulse Resp BP Pulse Ox O2 Del Method 09/29/25 11:15 97.8 F 53 L 16 142/51 H 98 09/29/25 10:00 62 09/29/25 09:20 69 09/29/25 08:00 71 09/29/25 08:00 69 18 96 Room Air 09/29/25 08:00 98 F 69 18 160/67 H 96 09/29/25 06:13 Room Air 09/29/25 06:00 71 09/29/25 04:30 97.6 F 67 18 201/87 H 95 09/29/25 03:59 67 13 189/83 H 97 09/29/25 02:46 62 19 165/71 H 96 09/29/25 02:25 60 16 171/75 H 99 09/29/25 00:03 60 15 143/62 H 97 09/28/25 20:51 54 L 14 153/57 H 97 09/28/25 20:32 204/89 H 98 09/28/25 20:30 98 09/28/25 20:19 240/87 H 98 09/28/25 20:15 99 09/28/25 20:11 100 09/28/25 19:55 98.6 F 54 L 16 247/101 H 100 Room Air Results Lab Results 09/30/25 04:10 09/30/25 04:10 Lab results: Most recent lab results Calcium 8.8 mg/dL (8.4-10.2) 09/29/25 06:27 Magnesium 2.2 mg/dL (1.6-2.3) 09/28/25 20:43
--- NOTE | 2025-09-29 11:17 | PM.CNCAR ---
Assessment and Plan Assessment and plan (1) Hypertensive emergency: Code(s): I16.1 - Hypertensive emergency Status: Acute (2) NSTEMI (non-ST elevated myocardial infarction): Code(s): I21.4 - Non-ST elevation (NSTEMI) myocardial infarction Status: Acute Plan Assessment: Hypertensive emergency: SBP at presentation ~250mm Hg; elevated troponin, elevated creatinine of 1.2 Parkinsons disease- with hypotension and hypertension alternating CAD, h/o CABG Plan: Patient chest pain and elevated troponin occured in the setting of severe uncontrolled HTN and resolved with better BP control. The troponin is elevated but mostly flat. This is most likely type II AL from HTN. Continue medical management with asa, ezetimibe, metoprolol 25 mg BID (cannot increase dose further due to HR in the 50s), and lisinopril 10 mg daily SL nitroglycerin 0.4mg Q5 min x 3 prn for chest pain Continue hydralazine 10 mg Q6 hours prn for SBP>170mm Hg TTE. OK to discharge patient home from cardiac standpoint if TTE is normal Management of other medical problems per primary team History of Present Illness History of Present Illness Consult date/time: 09/29/25 11:17 Reason For Visit: Chest pain Narrative: 85 year old male with CC of Parkinsons disease, CAD s/p CABG, hypothyroidism, retinal detachment, hypotension alternating with hypertension (due to Parkinsons) presented with CC of not feeling well. His SBP at presentation was over 250mm Hg. Patient is accompanied by his who states that patient has hypotension alternating with hypertension due to his Parkinsons disease. He has hypertension with SBP to the 200s at times. He has prn hydralazine for HTN. Prior to admission patient had HTN with SBP >250. This made the patient feel sick. As the BP was higher than usual, patient was brought to the ER. He reports one episode of chest pain yesterday when his BP was high. This has since resolved and he has not had a recurrence. He reports lightheadedness with high BP. He has off and on palpitations. No dizziness, pre syncope, syncope, leg swelling, recent weight gain, orthopnea, PND. Troponin is mildly elevated but mostly flat- 0.030, 0.060, 0.070, 0.064. EKG shows SR, IRBBB (unchanged from prior). There is no TTE done here. Cardiology is consulted for further recommendations for NSTEMI. Review of Systems Review of Systems: A complete review of systems was performed and pertinent positives are reported in the HPI. [facility] Past Medical History Medical History (Updated 09/29/25 @ 16:52 by Kerrie Law MD) Hypothyroidism CABG (coronary artery bypass graft) planned 5 vessel Retinal detachment Several years ago. 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 He has 2 children and she has 2 children. He is retired. Code status: DNR Smoking status: Never smoker Alcohol intake: never Substance use: never Lack of Transportation: No Lack of Food: Never True Current Housing: I Have Housing Concerned About Future Housing: No Difficulty Paying Gas/Electric Bills: No Difficulty Paying for Meds: No Currently Unemployed: No Education: Decline to Answer Difficulty w/ Childcare or Family Care: No Spiritual care concerns: No Meds Home Medications and Allergies Home Medications ?Medication ?Instructions ?Recorded ?Confirmed ?Type acetaminophen 500 mg tablet 500 mg PO DAILY 09/29/25 09/29/25 History aspirin 81 mg tablet,delayed 81 mg PO DAILY@0800 09/29/25 09/29/25 History release aspirin,buffered (calcium 325 tablet PO HS 09/29/25 09/29/25 History carbonate-magnesium) 325 mg tablet (Tri-Buffered Aspirin) carbidopa 25 mg-levodopa 100 mg See Rx Instructions .Route .COMPLEX 09/29/25 09/29/25 History tablet carbidopa ER 50 mg-levodopa 200 mg 1 tablet PO DAILY@1900 09/29/25 09/29/25 History tablet,extended release cyanocobalamin (vitamin B-12) 500 500 mcg PO DAILY 09/29/25 09/29/25 History mcg tablet donepezil 23 mg tablet 23 mg PO DAILY 09/29/25 09/29/25 History ezetimibe 10 mg tablet 10 mg PO DAILY 09/29/25 09/29/25 History levothyroxine 112 mcg tablet 112 mcg PO DAILY 09/29/25 09/29/25 History lisinopril 10 mg tablet 10 mg PO DAILY@0800 09/29/25 09/29/25 History metoprolol tartrate 25 mg tablet 25 mg PO BID 09/29/25 09/29/25 History polyethylene glycol 3350 17 17 g PO DAILY@0809/29/25 09/29/25 History gram/dose oral powder quetiapine 25 mg tablet 25 mg PO DAILY@0809/29/25 09/29/25 History quetiapine 50 mg tablet 50 mg PO HS 09/29/25 09/29/25 History white petrolatum-mineral oil 94 1 applic EACH EYE HS 09/29/25 09/29/25 History %-3 % eye ointment Allergies Allergy/AdvReac Type Severity Reaction Status Date / Time No Known Allergies Allergy Verified 09/29/25 04:07 Vital Signs Vital Signs - 24 hr 09/28/25 19:55 09/28/25 20:11 09/28/25 20:15 Temperature 37.0 C Pulse Rate 54 L Respiratory Rate 16 Blood Pressure 247/101 H Pulse Oximetry 100 100 99 Oxygen Delivery Room Air 09/28/25 20:19 09/28/25 20:30 09/28/25 20:32 Temperature Pulse Rate Respiratory Rate Blood Pressure 240/87 H 204/89 H Pulse Oximetry 98 98 98 Oxygen Delivery 09/28/25 20:51 09/29/25 00:03 09/29/25 02:25 Temperature Pulse Rate 54 L 60 60 Respiratory Rate 14 15 16 Blood Pressure 153/57 H 143/62 H 171/75 H Pulse Oximetry 97 97 99 Oxygen Delivery 09/29/25 02:46 09/29/25 03:59 09/29/25 04:30 Temperature 36.4 C Pulse Rate 62 67 67 Respiratory Rate 19 13 18 Blood Pressure 165/71 H 189/83 H 201/87 H Pulse Oximetry 96 97 95 Oxygen Delivery 09/29/25 06:00 09/29/25 06:13 09/29/25 08:00 Temperature 36.6 C Pulse Rate 71 69 Respiratory Rate 18 Blood Pressure 160/67 H Pulse Oximetry 96 Oxygen Delivery Room Air 09/29/25 08:00 09/29/25 08:00 09/29/25 09:20 Temperature Pulse Rate 69 71 69 Respiratory Rate 18 Blood Pressure Pulse Oximetry 96 Oxygen Delivery Room Air 09/29/25 10:00 Temperature Pulse Rate 62 Respiratory Rate Blood Pressure Pulse Oximetry Oxygen Delivery Exam Narrative: General: Alert oriented x3, no acute distress Neck: Supple, no JVD Chest: Bilaterally clear to auscultation, no rales or rhonchi Cardiac: S1, S2 +, regular rate, regular rhythm, no murmurs or rubs Extremities: No peda edema, no skin rash Neurologic: Alert and oriented x3, no focal neurological deficits Results Labs and Meds 09/29/25 06:27 09/29/25 06:27 Lab results: Cardiac Enzymes 09/28/25 09/28/25 09/29/25 Range/Units 20:43 23:41 03:07 AST 25 (17-59) U/L Troponin I 0.023 0.030 D 0.060 H* D (0.000-0.034) ng/mL 09/29/25 09/29/25 Range/Units 06:27 09:30 AST (17-59) U/L Troponin I 0.070 H* 0.064 H* (0.000-0.034) ng/mL CBC 09/28/25 09/29/25 Range/Units 20:43 06:27 WBC 5.8 7.6 (4.5-10.0) K/mm3 RBC 3.51 L 3.68 L (4.6-6.20) M/mm3 Hgb 11.4 L 12.2 L (14.0-18.0) g/dL Hct 35.0 L 36.8 L (42.0-52.0) % Plt Count 167 164 (150-375) k/mm3 Lymph # (Auto) 1.50 (0.9-3.2) K/mm3 [place] # (Auto) 0.5 (0.1-0.6) K/mm3 Eos # (Auto) 0.5 H (0-0.3) K/mm3 Baso # (Auto) 0.1 (0.0-0.1) K/mm3 Comprehensive Metabolic Panel 09/28/25 09/29/25 Range/Units 20:43 06:27 Sodium 135 L 136 L (137-145) mmol/L Potassium 4.2 3.9 (3.4-5.0) mmol/L Chloride 105 107 (98-107) mmol/L Carbon Dioxide 28 25 (22-30) mmol/L BUN 16 15 (9-20) mg/dL Creatinine 1.30 1.25 (0.7-1.3) mg/dL Glucose 95 100 (65-110) mg/dL Calcium 8.9 8.8 (8.4-10.2) mg/dL AST 25 (17-59) U/L ALT 6 (6-50) U/L Alkaline Phosphatase 91 (38-126) U/L Total Protein 6.7 (6.3-8.2) g/dL Albumin 3.8 (3.5-5.1) g/dL Intake and Output 09/28/25 09/29/25 09/29/25 23:59 07:59 15:59 Intake Total 1000 60 Output Total 0 Balance 1000 60 Intake: IV 1000 Sodium Chloride 0.9% IV 1,000 1000 ml @ 150 mls/hr IV CONT .[id number] STA Rx#:[id number] Oral 0 60 Output: Urine 0 Patient Weight 09/29/25 23:59 Weight 78.1 kg
[2025-09-29] MEDS: CARBIDOPA/LEVODOPA 12.5/50 MG TABLET 1 TABLET PO (12:21)
[2025-09-29] MEDS: CARBIDOPA/LEVODOPA 25/100 MG TABLET 2 TABLET PO (12:21)
--- NOTE | 2025-09-29 14:20 | P.DS_ITS ---
DS: Summary Time Spent with Patient Time attestation: Total time spent providing and/or coordinating discharge services: DS: Data Data Completed and Pending Labs on day of discharge: Labs from last 24 hours 09/29/25 09/29/25 09/29/25 09:30 06:27 03:07 WBC 7.6 RBC 3.68 L Hgb 12.2 L Hct 36.8 L MCV 100.0 MCH 33.2 MCHC 33.2 RDW 12.6 Plt Count 164 MPV 8.3 Immature Gran % (Auto) Neut % (Auto) Lymph % (Auto) [place] % (Auto) Eos % (Auto) Baso % (Auto) Lymph # (Auto) [place] # (Auto) Eos # (Auto) Baso # (Auto) Abs Immat Gran (auto) Absolute Neuts (auto) Absolute Nucleated RBC Nucleated RBC % Sodium 136 L Potassium 3.9 Chloride 107 Carbon Dioxide 25 Anion Gap 4 BUN 15 Creatinine 1.25 Estim Creat Clear Calc 44 Estimated GFR 55 L Glucose 100 Calcium 8.8 Magnesium Total Bilirubin AST ALT Alkaline Phosphatase Total Creatine Kinase Troponin I 0.064 H* 0.070 H* 0.060 H* D Total Protein Albumin TSH (Reflex) Urine Color Urine Appearance Urine pH Ur Specific [place] Urine Protein Urine Glucose (UA) Urine Ketones Ur Blood (Man) Urine Nitrate Urine Bilirubin Urine Urobilinogen Leukocyte Esterase Rfl Urine RBC Urine WBC Ur Squamous Epith Cells Urine Bacteria Urine Casts Influenza A (RT-PCR) Influenza B (RT-PCR) RSV (RT-PCR) SARS-CoV-2 RNA (RT-PCR) 09/28/25 09/28/25 23:41 20:43 WBC 5.8 RBC 3.51 L Hgb 11.4 L Hct 35.0 L MCV 99.7 MCH 32.5 MCHC 32.6 RDW 12.5 Plt Count 167 MPV 8.3 Immature Gran % (Auto) 0.2 Neut % (Auto) 56.1 Lymph % (Auto) 26.0 [place] % (Auto) 7.8 Eos % (Auto) 9.0 H Baso % (Auto) 0.9 Lymph # (Auto) 1.50 [place] # (Auto) 0.5 Eos # (Auto) 0.5 H Baso # (Auto) 0.1 Abs Immat Gran (auto) 0.01 Absolute Neuts (auto) 3.3 Absolute Nucleated RBC 0.000 Nucleated RBC % 0.0 Sodium 135 L Potassium 4.2 Chloride 105 Carbon Dioxide 28 Anion Gap 2 L BUN 16 Creatinine 1.30 Estim Creat Clear Calc 35 Estimated GFR 53 L Glucose 95 Calcium 8.9 Magnesium 2.2 Total Bilirubin 0.4 AST 25 ALT 6 Alkaline Phosphatase 91 Total Creatine Kinase 109 Troponin I 0.030 D 0.023 Total Protein 6.7 Albumin 3.8 TSH (Reflex) 3.780 Urine Color Yellow Urine Appearance Clear Urine pH 7.5 Ur Specific [place] 1.011 Urine Protein Trace Urine Glucose (UA) Negative Urine Ketones Negative Ur Blood (Man) Negative Urine Nitrate Negative Urine Bilirubin Negative Urine Urobilinogen 0.2 Leukocyte Esterase Rfl Negative Urine RBC 0-2 Urine WBC 0-5 Ur Squamous Epith Cells None seen Urine Bacteria None seen Urine Casts 0-2 Influenza A (RT-PCR) Negative Influenza B (RT-PCR) Negative RSV (RT-PCR) Negative SARS-CoV-2 RNA (RT-PCR) Negative Discharge Plan Discharge Attending physician on discharge: Sher Sykes Consulting providers: Jen Ma; Kerrie Law Discharging Clinician: Sana Tijerina Patient Disposition: DC Skilled Nursing/Asst Living Activity: as tolerated Diet: as tolerated Discharge Instructions: Please follow up with palliative care after discharge and review blood pressure medications to see if they want to adjust any of the patient's medications. Please give patient's PRN hydralazine 10 mg if patient's systolic blood pressure is above 200. Continue his current metoprolol and lisinopril doses. Please continue to monitor patient's blood pressure at his memory care unit as ordered by his palliative and cardiology providers. 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 Discharge Medications: Continued white petrolatum-mineral oil 94-3 % ointment 1 applic EACH EYE HS aspirin,buffd-calcium carb-mag [Tri-Buffered Aspirin] 325 mg tablet 325 tablet PO HS acetaminophen 500 mg tablet 500 mg PO DAILY aspirin 81 mg tablet,delayed release (DR/EC) 81 mg PO DAILY@0800 carbidopa-levodopa 50-200 mg tablet extended release 1 tablet PO DAILY@1900 quetiapine 50 mg tablet 50 mg PO HS quetiapine 25 mg tablet 25 mg PO DAILY@0800 polyethylene glycol 3350 17 gram/dose powder 17 g PO DAILY@0800 metoprolol tartrate 25 mg tablet 25 mg PO BID lisinopril 10 mg tablet 10 mg PO DAILY@0800 levothyroxine 112 mcg tablet 112 mcg PO DAILY carbidopa-levodopa 25-100 mg tablet See Rx Instructions .ROUTE .COMPLEX Rx Instructions: Pt 3 tablets at 0700 2.5 tablets at 1100 1 tablet at 1500 ezetimibe 10 mg tablet 10 mg PO DAILY donepezil 23 mg tablet 23 mg PO DAILY cyanocobalamin (vitamin B-12) 500 mcg tablet 500 mcg PO DAILY Date of admission: 09/29/25 00:38 Primary Care Provider: UNKNOWN,DOCTOR Admitting Provider: Bartolo Vallejo Oca Attending physician on admission: Bartolo Vallejo Oca Condition: Stable
--- NOTE | 2025-09-29 16:24 | P.PNIM_ITS ---
Assessment and Plan Assessment and Plan (1) Chest pain: Code(s): R07.9 - Chest pain, unspecified Status: Acute Assessment and Plan: -the patient has a history of 5 vessel CABG. He typically sees a feed mixer helper at [facility] however the ambulance was unable to take him to formerly [facility] due to the weather. The was able to pull up the echo that he had performed March this year. Since the patient had a normal in ejection fraction. I have requested records from the feed mixer helper. -his elevated troponin could possibly be ischemic demand from sustained hypertension. -I consulted Nephrology for uncontrolled hypertension. -cardiology has been consulted as well. -continue with aspirin. -troponins now showing down trending, appears to be from demand ischemia -patient denies chest pain at the time of my visit (2) Hypertension: Code(s): I10 - Essential (primary) hypertension Status: Acute Assessment and Plan: -the patient has had a history of a nephrectomy due to a benign mass. Since then he has had uncontrolled hypertension. Patient's blood pressures fluctuate often. -continue with metoprolol tartrate. Continue lisinopril and monitor renal function closely. -p.r.n. hydralazine with parameters. -patient is being followed outpatient by his palliative care provider and feed mixer helper for his labile blood pressures. Patient often has systolic blood pressures up the the 230's. Patient has a PRN dose of hydralazine PO that he can be given at his AL facility. He was sent for evaluation due to his systolic BP being in the 250's with reported symptoms. -patient's BP is now stable, patient's requesting discharge, cardiology cleared patient for discharge with continued follow up with his palliative care provider and cardiology, after dicscharge orders were placed requested to stay overnight for monitoring -plan for discharge back home tomorrow with same medications and continued outpatient follow up with palliative care and cardiology (3) Parkinsons: Code(s): G20.A1 - Parkinson's disease without dyskinesia, without mention of fluctuations Status: Acute Assessment and Plan: -continue with carbidopa levodopa. (4) Hypothyroidism: Code(s): E03.9 - Hypothyroidism, unspecified Status: Acute Assessment and Plan: -continue with levothyroxine. Subjective Date/time seen: 12/02/25 16:24 Interval history: Patient seen for a follow up visit. Patient sitting in chair, in no acute distr ess. Patient's and family member at bedside during visit. Patient denies complaints. Per patient's the blood pressure is being followed and controlled by patient's palliative care provider and feed mixer helper. Patient often has blood pressures up to 230's systolic and is asymptomatic. Patient has a PRN hydralazine dose that can be given if he is symptomatic. Patient was sent to the ER since his systolic was in the 250's and they had not seen it that high. Patient's blood pressure is labile since he has Parkinson's disease. Patient's notes his blood pressure is stable now and she would like him discharged back home as he is more confused out of his normal setting. I discussed with cardiology and patient is stable for discharge with close follow up with his palliative care provider and feed mixer helper. After discharge orders were placed family requested to stay overnight for monitoring. Review of Systems Review of Systems: ROS unobtainable: Yes unobtainable due to mental status Exam Const: General: comfortable and no acute distress HENMT: Face/Nose/Sinus: Normal nares present Mouth: Yes moist mucous membranes Eyes: General: appearance normal, both eyes and all related structures Sclera: sclerae normal Neck: Neck: supple Resp: Effort & Inspection: normal respiratory effort Auscultation: clear to auscultation bilaterally Cardio: Rate: regular rate Rhythm: regular rhythm GI: GI Palp: Yes Soft to palpation Auscultation: normal bowel sounds Skin: General skin exam: normal color and no rashes or lesions noted Neuro: Speech: normal speech Motor exam (neuro): 5/5 motor strength present throughout Sensory Exam: normal sensation Other: oriented x 2, demented Extrem: General: normal to inspection Psych: Mental Status: mental status grossly normal Affect: normal affect Objective Data Vital Signs Vital Signs: Vital Signs - 24 hr 09/28/25 19:55 09/28/25 20:11 09/28/25 20:15 Temperature 98.6 F Pulse Rate 54 L Respiratory Rate 16 Blood Pressure 247/101 H Pulse Oximetry 100 100 99 Oxygen Delivery Room Air 09/28/25 20:19 09/28/25 20:30 09/28/25 20:32 Temperature Pulse Rate Respiratory Rate Blood Pressure 240/87 H 204/89 H Pulse Oximetry 98 98 98 Oxygen Delivery 12/01/25 20:51 09/29/25 00:03 09/29/25 02:25 Temperature Pulse Rate 54 L 60 60 Respiratory Rate 14 15 16 Blood Pressure 153/57 H 143/62 H 171/75 H Pulse Oximetry 97 97 99 Oxygen Delivery 09/29/25 02:46 09/29/25 03:59 09/29/25 04:30 Temperature 97.6 F Pulse Rate 62 67 67 Respiratory Rate 19 13 18 Blood Pressure 165/71 H 189/83 H 201/87 H Pulse Oximetry 96 97 95 Oxygen Delivery 09/29/25 06:00 09/29/25 06:13 09/29/25 08:00 Temperature 98 F Pulse Rate 71 69 Respiratory Rate 18 Blood Pressure 160/67 H Pulse Oximetry 96 Oxygen Delivery Room Air 09/29/25 08:00 09/29/25 08:00 09/29/25 09:20 Temperature Pulse Rate 69 71 69 Respiratory Rate 18 Blood Pressure Pulse Oximetry 96 Oxygen Delivery Room Air 09/29/25 10:00 09/29/25 11:35 09/29/25 12:00 Temperature 97.8 F Pulse Rate 62 53 L 53 L Respiratory Rate 16 16 Blood Pressure 142/51 H Pulse Oximetry 98 98 Oxygen Delivery Room Air 09/29/25 12:00 09/29/25 14:00 09/29/25 15:59 Temperature Pulse Rate 57 L 53 L 55 L Respiratory Rate 16 Blood Pressure Pulse Oximetry 98 Oxygen Delivery Room Air 09/29/25 16:00 Temperature 97.7 F Pulse Rate 55 L Respiratory Rate 16 Blood Pressure 175/71 H Pulse Oximetry 100 Oxygen Delivery Intake/Output Intake/Output: Intake & Output 09/26/25 09/27/25 09/28/25 09/29/25 23:59 23:59 23:59 23:59 Intake Total 1300 Output Total 0 Balance 1300 Meds/Results Medications: Active Medications Generic Name Dose Route Start Last Admin Trade Name Cricket PRN Reason Stop Dose Admin Acetaminophen 500 mg 09/29/25 09:00 09/29/25 09:20 Acetaminophen 500 Mg Tablet PO 500 mg DAILY [facility] Administration Aspirin 81 mg 09/29/25 08:00 09/29/25 09:20 Aspirin 81 Mg Enteric Tablet PO 81 mg DAILY@0800 [facility] Administration Aspirin Buffered 325 mg 09/29/25 21:00 Aspirin/Magnesium/Calcium Carb 325 Mg Tablet (Bufferin) PO HS [facility] Carbidopa/Levodopa 2 tablet 09/29/25 19:00 Carbidopa/Levodopa 25/100 Mg Cr Tablet PO DAILY@1900 [facility] Carbidopa/Levodopa 2 tablet 09/30/25 11:00 Carbidopa/Levodopa 25/100 Mg Tablet PO Q24H [facility] Carbidopa/Levodopa 1 tablet 09/29/25 15:00 09/29/25 16:15 Carbidopa/Levodopa 25/100 Mg Tablet PO 1 tablet Q24H [facility] Administration Carbidopa/Levodopa 1 tablet 09/30/25 11:00 Carbidopa/Levodopa 12.5/50 Mg Tablet PO Q24H [facility] Carbidopa/Levodopa 3 tablet 09/30/25 07:00 Carbidopa/Levodopa 25/100 Mg Tablet PO Q24H AVL[facility] Cyanocobalamin 500 mcg 09/29/25 09:00 09/29/25 09:20 Cyanocobalamin 500 Mcg Tablet PO 500 mcg DAILY [facility] Administration Donepezil HCl 20 mg 09/29/25 21:00 Donepezil Hcl 10 Mg Tablet PO HS [facility] Ezetimibe 10 mg 09/29/25 09:00 09/29/25 09:20 Ezetimibe 10 Mg Tablet PO 10 mg DAILY [facility] Administration Hydralazine HCl 10 mg 09/29/25 07:09 Hydralazine Hcl 20 Mg/Ml Vial IV PUSH Q8H PRN Blood Pressure - High Levothyroxine Sodium 112 mcg 09/29/25 06:30 09/29/25 06:48 Levothyroxine Sodium 112 Mcg Tablet PO 112 mcg DAILY@0630 [facility] Administration Lisinopril 10 mg 09/29/25 08:00 09/29/25 09:20 Lisinopril 10 Mg Tablet PO 10 mg DAILY@0800 [facility] Administration Metoprolol Tartrate 25 mg 09/29/25 09:00 09/29/25 09:20 Metoprolol Tartrate 25 Mg Tablet PO 25 mg Q12HR [facility] Administration Multi-Ingred Cream/Lotion/Oil/Oint 1 applic 09/29/25 21:00 Mineral Oil/White Petrolatum Ointment EACH EYE HS [facility] Ondansetron HCl 4 mg 09/29/25 00:38 Ondansetron Inj 4 Mg/2 Ml Vial IV PUSH Q4H PRN Nausea Polyethylene Glycol 17 gm 09/29/25 08:00 09/29/25 09:20 Polyethylene Glycol 3350 17 Gm Powd.Pack PO 17 gm DAILY@0800 [facility] Administration Quetiapine Fumarate 25 mg 09/29/25 08:00 09/29/25 09:20 Quetiapine Fumarate 25 Mg Tablet PO 25 mg DAILY@0800 [facility] Administration Quetiapine Fumarate 50 mg 09/29/25 21:00 Quetiapine Fumarate 25 Mg Tablet PO [facility] Radiology Results: ITS Impressions Chest X-Ray 09/29/25 09:27 Impression: 1: Left-sided airspace disease, compatible with pneumonia. Labs Labs: Laboratory Results - last 24 hr 09/28/25 09/28/25 09/29/25 20:43 23:41 03:07 WBC 5.8 RBC 3.51 L Hgb 11.4 L Hct 35.0 L MCV 99.7 MCH 32.5 MCHC 32.6 RDW 12.5 Plt Count 167 MPV 8.3 Immature Gran % (Auto) 0.2 Neut % (Auto) 56.1 Lymph % (Auto) 26.0 [place] % (Auto) 7.8 Eos % (Auto) 9.0 H Baso % (Auto) 0.9 Lymph # (Auto) 1.50 [place] # (Auto) 0.5 Eos # (Auto) 0.5 H Baso # (Auto) 0.1 Abs Immat Gran (auto) 0.01 Absolute Neuts (auto) 3.3 Absolute Nucleated RBC 0.000 Nucleated RBC % 0.0 Sodium 135 L Potassium 4.2 Chloride 105 Carbon Dioxide 28 Anion Gap 2 L BUN 16 Creatinine 1.30 Estim Creat Clear Calc 35 Estimated GFR 53 L Glucose 95 Calcium 8.9 Magnesium 2.2 Total Bilirubin 0.4 AST 25 ALT 6 Alkaline Phosphatase 91 Total Creatine Kinase 109 Troponin I 0.023 0.030 D 0.060 H* D Total Protein 6.7 Albumin 3.8 TSH (Reflex) 3.780 Urine Color Yellow Urine Appearance Clear Urine pH 7.5 Ur Specific [place] 1.011 Urine Protein Trace Urine Glucose (UA) Negative Urine Ketones Negative Ur Blood (Man) Negative Urine Nitrate Negative Urine Bilirubin Negative Urine Urobilinogen 0.2 Leukocyte Esterase Rfl Negative Urine RBC 0-2 Urine WBC 0-5 Ur Squamous Epith Cells None seen Urine Bacteria None seen Urine Casts 0-2 Influenza A (RT-PCR) Negative Influenza B (RT-PCR) Negative RSV (RT-PCR) Negative SARS-CoV-2 RNA (RT-PCR) Negative 09/29/25 09/29/25 06:27 09:30 WBC 7.6 RBC 3.68 L Hgb 12.2 L Hct 36.8 L MCV 100.0 MCH 33.2 MCHC 33.2 RDW 12.6 Plt Count 164 MPV 8.3 Immature Gran % (Auto) Neut % (Auto) Lymph % (Auto) [place] % (Auto) Eos % (Auto) Baso % (Auto) Lymph # (Auto) [place] # (Auto) Eos # (Auto) Baso # (Auto) Abs Immat Gran (auto) Absolute Neuts (auto) Absolute Nucleated RBC Nucleated RBC % Sodium 136 L Potassium 3.9 Chloride 107 Carbon Dioxide 25 Anion Gap 4 BUN 15 Creatinine 1.25 Estim Creat Clear Calc 44 Estimated GFR 55 L Glucose 100 Calcium 8.8 Magnesium Total Bilirubin AST ALT Alkaline Phosphatase Total Creatine Kinase Troponin I 0.070 H* 0.064 H* Total Protein Albumin TSH (Reflex) Urine Color Urine Appearance Urine pH Ur Specific [place] Urine Protein Urine Glucose (UA) Urine Ketones Ur Blood (Man) Urine Nitrate Urine Bilirubin Urine Urobilinogen Leukocyte Esterase Rfl Urine RBC Urine WBC Ur Squamous Epith Cells Urine Bacteria Urine Casts Influenza A (RT-PCR) Influenza B (RT-PCR) RSV (RT-PCR) SARS-CoV-2 RNA (RT-PCR) Quality VTE Prophylaxis VTE prophylaxis: mechanical ordered
[2025-09-29] MEDS: CARBIDOPA/LEVODOPA 25/100 MG CR TABLET 2 TABLET PO (18:28)
[2025-09-29] MEDS: DONEPEZIL HCL 10 MG TABLET 20 MG PO (20:19)
[2025-09-29] MEDS: MINERAL OIL/WHITE PETROLATUM OINTMENT 1 APPLIC EACH EYE (20:32)
[2025-09-30] VITALS (13 sets, daily range): BP systolic 143–196; BP diastolic 64–81; PULSE 51–69; RESP 14–18; TEMP 36.4–36.8; O2SAT 95–96
--- NOTE | 2025-09-30 | ECHO_ITS ---
Patient Info Name: Spencer Ayoub Age: 85 years : 1940 Gender: Male Ht: 66 in Wt: 172 lbs BSA: 1.92 m2 HR: 61 bpm BP: 182 / 74 mmHg Heart Rhythm: Sinus Rhythm Technical Quality: Good Exam Date: 09/30/2025 10:24 AM Patient Status: O Admit Date: 09/29/2025 Exam Type: CA echo doppler color flow Complete two-dimensional, color flow and Doppler transthoracic echocardiogram is performed. Staff Referring Physician: Jen Ma Pharmaceutical Assistant: Shay Borrego III Attending Provider: Bartolo Canales Oca Summary 1. Complete two-dimensional, color flow and Doppler transthoracic echocardiogram is performed. 2. Left ventricular systolic function is normal, estimated at 60-65. 3. There is moderately increased left ventricular wall thickness. 4. The left ventricular diastolic function is grade II diastolic dysfunction. 5. Right ventricular chamber dimension is mildly enlarged. 6. Right ventricular systolic function is normal. 7. There is mild tricuspid valve regurgitation. 8. No pulmonary hypertension, estimated pulmonary arterial systolic pressure is 29 mmHg. Left Ventricle Left ventricular chamber dimension is normal. Left ventricular systolic function is normal, estimated at 60-65. There is moderately increased left ventricular wall thickness. Left ventricular septal wall motion is normal. The left ventricular diastolic function is grade II diastolic dysfunction. Right Ventricle Right ventricular chamber dimension is mildly enlarged. Right ventricular systolic function is normal. Left Atria Left atrial chamber dimension is normal. Right Atria Right atrial chamber dimension is normal. Aortic Valve The aortic valve is trileaflet. There is mild aortic valve sclerosis. There is no aortic valve stenosis. There is no aortic valve regurgitation. Pulmonic Valve The pulmonic valve is normal. There is no pulmonic valve stenosis. There is no pulmonic regurgitation. Mitral Valve The mitral valve has normal leaflets. There is no mitral valve stenosis. There is no mitral valve regurgitation. Tricuspid Valve The tricuspid valve leaflets are normal. There is no significant tricuspid valve stenosis. There is mild tricuspid valve regurgitation. No pulmonary hypertension, estimated pulmonary arterial systolic pressure is 29 mmHg. Pericardium/Pleural The pericardium appears normal. There is no pericardial effusion. Inferior Vena Cava Normal inferior vena cava with >50% collapse upon inspiration consistent with normal right atrial pressure, 5 mmHg. Aorta The aortic root size at the sinus of Valsalva is normal. The prox ascending aorta size is normal. Left Ventricular Outflow Tract Name Value Normal LVOT 2D LVOT Diameter 2.3 cm LVOT Doppler LVOT Peak Velocity 122 cm/s LVOT Peak Gradient 6 mmHg LVOT Mean Gradient 2 mmHg LVOT VTI 28 cm LVOT VTI/AV VTI Ratio 0.9 LVOT Stroke Volume 114 ml LVOT CO 6.0 l/min LVOT CI 3.1 l/min/m2 Mitral Valve Name Value Normal MV Doppler MV Peak Gradient 5 mmHg MV Mean Gradient 2 mmHg MV Area (Cont Eq VTI) 2.9 cm2 MV Diastolic Function MV E Peak Velocity 96 cm/s MV A Peak Velocity 114 cm/s MV E/A 0.8 MV Decel Time (PW) 258 ms MV Annular TDI MV E/e' (Septal) 16.4 MV E/e' (Lateral) 17.9 MV E/e' (Average) 17.2 Tricuspid Valve Name Value Normal TV Regurgitation Doppler TR Peak Velocity 243 cm/s TR Peak Gradient 24 mmHg Estimated PAP/RSVP RA Pressure 5 mmHg <=5 PA Systolic Pressure 29 mmHg <36 RV Systolic Pressure 29 mmHg <36 TV Annular TDI TV Lateral Leeann s' Velocity 16.6 cm/s >=9.5 Aortic Valve Name Value Normal AV Doppler AV Peak Velocity 143 cm/s AV Peak Gradient 8 mmHg AV Mean Gradient 4 mmHg AV VTI 32 cm AV Area (Cont Eq VTI) 3.6 cm2 >=3.0 AV Area (Cont Eq Ignacio) 3.6 cm2 AV DI (Ignacio) 0.85 AV Regurgitation 2D LVOT Area 4.2 cm2 Ventricles Name Value Normal LV Dimensions 2D/MM IVS Diastolic Thickness (2D) 1.5 cm 0.6-1.0 LVID Diastole (2D) 4.2 cm 4.2-5.8 LVIW Diastolic Thickness (2D) 1.4 cm 0.6-1.0 LVID Systole (2D) 2.3 cm 2.5-4.0 LVOT Diameter 2.3 cm LV Mass (2D Cubed) 228.32 g 88.00-224.00 LV Mass Index (2D Cubed) 119 g/m2 49-115 Relative Wall Thickness (2D) 0.68 <=0.42 LV Fractional Shortening/Ejection Fraction 2D/MM LV Fractional Shortening (2D) 45 % 25-43 LV EF (2D Teichholz) 76 % LV Diastolic Volume (4C MOD) 82 ml LV EF (4C MOD) 61 % LV Diastolic Volume (2C MOD) 86 ml LV EF (2C MOD) 60 % LV Diastolic Volume (BP MOD) 86 ml 62-150 LV Diastolic Volume Index (BP MOD) 45 ml/m2 34-74 LV Systolic Volume (BP MOD) 33 ml 21-61 LV Systolic Volume Index (BP MOD) 17 ml/m2 11-31 LV EF (BP MOD) 61 % 52-72 LV Diastolic Length (4C) 8.2 cm LV Systolic Length (4C) 6.8 cm LV Stroke Volume (4C MOD) 50 ml Atria Name Value Normal LA Dimensions LA Volume (4C A-L) 75 ml LA Volume (BP A-L) 78 ml RA Dimensions RA Systolic Major Gillett Length (4C) 6.6 cm 2.1-2.7 RA Area (4C) 23.7 cm2 <=18.0 Report Signatures
[2025-09-30 04:24] LABS: Hematocrit 35.2 % (42.0-52.0); Hemoglobin 11.6 g/dL (14.0-18.0); Mean Corpuscular HGB Conc 33.0 g/dl (32-36); Mean Corpuscular Hemoglobin 32.7 pg (26-34); Mean Corpuscular Volume 99.2 fl (80-100); Platelet Count Result 173 k/mm3 (150-375); Red Blood Count 3.55 M/mm3 (4.6-6.20); White Blood Count 6.8 K/mm3 (4.5-10.0)
[2025-09-30 04:46] LABS: Anion Gap 4 mmol/L (4-12); Blood Urea Nitrogen 17 mg/dL (9-20); Calcium 9.0 mg/dL (8.4-10.2); Carbon Dioxide 24 mmol/L (22-30); Chloride 107 mmol/L (98-107); Estimated CRCL calculation 36 ml/min; Estimated Glomerular Filt Rate 55; Glucose 98 mg/dL (65-110); Potassium 4.0 mmol/L (3.4-5.0); Sodium 135 mmol/L (137-145)
[2025-09-30] MEDS: ACETAMINOPHEN 325 MG TABLET 650 MG PO (08:22)
[2025-09-30] MEDS: CARBIDOPA/LEVODOPA 25/100 MG TABLET 3 TABLET PO (08:29)
[2025-09-30] MEDS: CYANOCOBALAMIN 500 MCG TABLET PO (08:30)
[2025-09-30] MEDS: EZETIMIBE 10 MG TABLET PO (08:30)
[2025-09-30] MEDS: ASPIRIN 81 MG ENTERIC TABLET PO (08:34)
[2025-09-30] MEDS: LEVOTHYROXINE SODIUM 112 MCG TABLET PO (08:34)
[2025-09-30] MEDS: METOPROLOL TARTRATE 25 MG TABLET PO (08:35)
[2025-09-30] MEDS: ONDANSETRON INJ 4 MG/2 ML VIAL IV PUSH (08:58)
[2025-09-30] MEDS: TAMSULOSIN HCL 0.4 MG CAPSULE PO (11:45)
[2025-09-30] MEDS: CARBIDOPA/LEVODOPA 12.5/50 MG TABLET 1 TABLET PO (11:47)
[2025-09-30] MEDS: CARBIDOPA/LEVODOPA 25/100 MG TABLET 2 TABLET PO (11:48)
--- NOTE | 2025-09-30 12:55 | P.DS_ITS ---
DS: Admitting Diagnosis Discharge Date 09/30/2025 Admitting Diagnosis Hypertensive crisis DS: Discharge Diagnosis Discharge Diagnosis (1) Chest pain: Code(s): R07.9 - Chest pain, unspecified Status: Acute (2) Hypertension: Code(s): I10 - Essential (primary) hypertension Status: Acute (3) Parkinsons: Code(s): G20.A1 - Parkinson's disease without dyskinesia, without mention of fluctuations Status: Acute (4) Hypothyroidism: Code(s): E03.9 - Hypothyroidism, unspecified Status: Acute DS: Summary Hospital Course Reason for hospitalization: Hypertensive crisis Hospital Course: Admission: Patient was a 85-year-old male patient who resides at [facility]. Has a history of Parkinson's and hypertension. The patient was brought to the emergency room because his blood pressures have been running high. The is at the bedside offering history. She stated that his blood pressures sequence go up and down. The patient was recently prescribed a p.r.n. high blood pressure medication.The patient has been feeling unwell for several days . The patient typically has all of his care at [facility]. However the ambulance was not able to take him to [facility] because of the weather. In the ED: His H&H is 11.4 and 35.0. Sodium 135 with an anion gap of 2. Troponin 0.23, 0.03, 0.060. 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 The patient stated that he was having some chest pressure when his blood pressure was elevated. EKG was read as incomplete right bundle-branch block. Borderline EKG. Heart rate 60. His heart score is 5. Chest x-ray was performed and nothing acute seen on the chest x-ray however there is evidence of open-heart surgery. The patient was given his dose of carbidopa levodopa and an aspirin in the emergency room. Patient's blood pressure is were initially 240/87. The lowest blood pressure noted was 165/71. Hospital Course: Patient was admitted to IMU with a consult placed to cardiology and nephrology for hypertensive crisis. Patient had echo and renal US performed. Both had yet to result at time of discharge with clearance from Cardiology to follow-up in the clinic outpatient. Patient also had an US retroperitoneal duplex ltd with no evidence of renal stenosis. Patient was initially resumed on his home medication of Lisinopril BID with cotninued systolic pressures in the 190's. I did discontinue his Lisinopril due to episodes of hypotension secondary to Parkinson's and placed him on Nifedipine CCB 30mg daily for better BP control and less side effect of hypotension. Patient BP responded well and systolic improved to 140's. Patient was seen at time of discharge with at bedside with no acute distress and no complaints. Patient denied any CP or dizziness and his headache had resolved. Providing education on medication changes and recommended compression stockings with ambulation for patient episodes of orthostatic hypotension. I also added Hydralazine 25 mg TID PRN for systolic >160. Patient was discharged back to his assisted [facility] care and transported by family. Patient and family acknowledge and agreed with discharge plan. Status at Discharge Functional status at discharge: uses cane/walker Overall status at discharge: patient is back to baseline Time Spent with Patient Time attestation: Total time spent providing and/or coordinating discharge services: Time spent: Greater than 30 minutes DS: Data Data Completed and Pending Labs on day of discharge: Labs from last 24 hours 09/30/25 04:10 WBC 6.8 RBC 3.55 L Hgb 11.6 L Hct 35.2 L MCV 99.2 MCH 32.7 MCHC 33.0 RDW 12.7 Plt Count 173 MPV 8.6 Sodium 135 L Potassium 4.0 Chloride 107 Carbon Dioxide 24 Anion Gap 4 BUN 17 Creatinine 1.26 Estim Creat Clear Calc 36 Estimated GFR 55 L Glucose 98 Calcium 9.0 Discharge Plan Discharge Attending physician on discharge: Efren Zacarias Consulting providers: Jen Ma; Kerrie Law; Karen Giang Discharging Clinician: Karen Giang Anticipated Discharge Date/Time: 09/30/25 12:56 Patient Disposition: NH Alf/Asst Living Activity: as tolerated Diet: as tolerated Discharge Instructions: 1). Hypertension * I have discontinued your Lisinopril because this may cause hypotension secondary to your Parkinson's diagnosis. * I have started you Nifedipine 30 mg daily for better control as well as added Hydralazine 25mg TID PRN for systolic greater then 160. * An echo was performed not yet resulted which can be followed-up your order administrator outpatient 2). Parkinson's * This can cause episodes of hypotension recommend compression stockings with ambulation * I recommend rising slowly from a laying or sitting position * Continue fall precautions Of note you were taking 2 separate doses of Aspirin which can put you at risk for GI bleed I have discontinued your 81mg daily aspirin How can you care for yourself at home? ? Keep track of any new symptoms or changes in your symptoms. ? Rest until you feel better. ? Be safe with medicines. Take your medicines exactly as prescribed. Call your doctor if you think you are having a problem with your medicine. ? Do not drive after taking a prescription pain medicine. ? Ensure to follow-up with primary care physician as indicated and provide updated medication list provided to you at discharge. When should you call for help? Call 911 anytime you think you may need emergency care. For example, call if: ? You passed out (lost consciousness). Call your doctor now or seek immediate medical care if: ? You have new symptoms like fever, difficulty breathing, Chest pain, vomiting, or rash. ? You have new or different pain. ? You are confused and are having trouble thinking clearly. ? Your symptoms are getting worse. Watch closely for changes in your health, and be sure to contact your doctor if: ? You do not get better as expected. Patient Instructions: Antibiotic Form, Nifedipine (By mouth), Parkinson Disease (DC), Hypertensive Crisis (DC), Hypertension (DC) Patient Language: Kinyarwanda Stand Alone Forms: General Discharge Information, Penitentiary Discharge Follow-up/Referrals: UNKNOWN,DOCTOR [Primary Care Provider] Referral Note: Please call for follow up appointments with patient's order administrator and palliative care providers within 1 week of discharge. Discharge Medications: New Order Clarification Required [ Duplicate Therapy Order Clarification] 25 mg tablet 25 mg PO TID PRN (Reason: hypertension) Qty: 90 0RF Rx Instructions: Systolic >160 nifedipine 30 mg tablet extended release 30 mg PO DAILY Qty: 30 0RF Continued white petrolatum-mineral oil 94-3 % ointment 1 applic EACH EYE HS aspirin,buffd-calcium carb-mag [Tri-Buffered Aspirin] 325 mg tablet 325 tablet PO HS acetaminophen 500 mg tablet 500 mg PO DAILY carbidopa-levodopa 50-200 mg tablet extended release 1 tablet PO DAILY@1900 quetiapine 50 mg tablet 50 mg PO HS quetiapine 25 mg tablet 25 mg PO DAILY@0800 polyethylene glycol 3350 17 gram/dose powder 17 g PO DAILY@0800 metoprolol tartrate 25 mg tablet 25 mg PO BID levothyroxine 112 mcg tablet 112 mcg PO DAILY carbidopa-levodopa 25-100 mg tablet See Rx Instructions .ROUTE .COMPLEX Rx Instructions: Pt 3 tablets at 0700 2.5 tablets at 1100 1 tablet at 1500 ezetimibe 10 mg tablet 10 mg PO DAILY donepezil 23 mg tablet 23 mg PO DAILY cyanocobalamin (vitamin B-12) 500 mcg tablet 500 mcg PO DAILY tamsulosin 0.4 mg capsule 0.4 mg PO DAILY Discontinued aspirin 81 mg tablet,delayed release (DR/EC) 81 mg PO DAILY@0800 lisinopril 10 mg tablet 10 mg PO DAILY@0800 Date of admission: 09/29/25 00:38 Primary Care Provider: UNKNOWN,DOCTOR Admitting Provider: Bartolo Vallejo Oca Attending physician on admission: Bartolo Vallejo Oca Condition: Stable Quality VTE Prophylaxis VTE prophylaxis: mechanical ordered -Patient's previous records reviewed on admission -ER notes reviewed in detail on admission -discussed all findings and current treatment plan with patient/Family/POA -Consultations reviewed for recommendations -Patient's disposition for safe discharge discussed with case management rn -radiology imaging, EKG and test results I have personally reviewed and interpreted unless otherwise specified Dictation performed by [employer] direct speech recognition software, therefore construction project manager variants and typographical errors may occur. Hospitalist MIPS Heart Failure (Exclusion) Patient has history of Heart Transplant or Left Ventricular Assistive Device?: No IF YES, STOP HERE Heart Failure (Qualifier) Patient has current or prior documentation of LVEF less than or equal to 40%, or mod/servere depressed LVSF?: No IF NO, STOP HERE
== END 2025-09-30 13:58 ==
LOC: ANHED 09-29 00:40 → ANHIMU 09-29 07:03
PROVIDERS: Nurse Practitioner; Admitting Provider Student in an Organized Health Care Education/Training Program; Emergency Provider Student in an Organized Health Care Education/Training Program; Visit Provider Family Medicine
DX: I16.1 Hypertensive emergency (principal); I10 Essential (primary) hypertension; I1A.0 Resistant hypertension; I21.4 Non-ST elevation (NSTEMI) myocardial infarction; I45.10 Unspecified right bundle-branch block; G20.A1 Parkinson's disease without dyskinesia, without mention of fluctuations; F02.82 Dementia in other diseases classified elsewhere, unspecified severity, with psychotic disturbance; E03.9 Hypothyroidism, unspecified; H33.8 Other retinal detachments; R79.89 Other specified abnormal findings of blood chemistry; Z20.822 Contact with and (suspected) exposure to COVID-19; Z79.82 Long term (current) use of aspirin; Z99.89 Dependence on other enabling machines and devices; Z95.1 Presence of aortocoronary bypass graft; Z90.49 Acquired absence of other specified parts of digestive tract; Z90.5 Acquired absence of kidney
CPT/HCPCS: 36415; 71045; 80048; 80053; 81001; 82550; 83735; 84443; 84484; 85025; 85027; 87637; 93005; 93306; 93976; 96361; 96374; 96375; 96376; 99285; A9270; G0378; J0360; J2405; J7030

== ENCOUNTER 2025-09-30 17:41 | Emergency (ER) | payer MEDICARE, SELFPAY ==
--- NOTE | ~2025-09-30 | CT_ITS ---
CT cervical spine wo con HISTORY: fall, head injury COMPARISON: None TECHNIQUE: Axial images of the cervical spine were obtained. Multiplanar reconstruction in the coronal, sagittal and axial reformats to evaluate for cervical fracture. FINDINGS: The images demonstrate no acute fracture or paravertebral soft tissue swelling. Degenerative changes with disc bulging and uncovertebral hypertrophy are noted throughout the cervical spine. The visualized aspect of the upper lungs are clear. IMPRESSION: No acute fracture or subluxation. All CT scans at this facility are performed using low dose modulation techniques as appropriate to perform exam including the following: automated exposure control; adjustment of the mA and/or kV according to patient size (this includes techniques or standardized protocols for targeted exams where does is matched to indication/reason for exam; i.e. extremities or head); use of iterative reconstruction technique). Reviewed, dictated and finalized at location [facility] IMPRESSION: No acute fracture or subluxation. All CT scans at this facility are performed using low dose modulation techniqu es as appropriate to perform exam including the following: automated exposure c ontrol; adjustment of the mA and/or kV according to patient size (this includes techniques or standardized protocols for targeted exams where does is matched to indication/reason for exam; i.e. extremities or head); use of iterative marlyn nstruction technique).
--- NOTE | ~2025-09-30 | CT_ITS ---
CT brain wo con HISTORY:fall, head injury COMPARISON: None. TECHNIQUE: Axial images were obtained of the head without intravenous contrast. FINDINGS: No acute intracranial hemorrhage, mass effect or midline shift. No extra-axial fluid collections. The calvarium is intact. Visualized paranasal sinuses and mastoid air cells are clear. IMPRESSION: No acute intracranial hemorrhage or extra axial fluid collections. All CT scans at this facility are performed using low dose modulation techniques as appropriate to perform exam including the following: automated exposure control; use of iterative reconstruction technique; adjustment of the mA and/or kV according to patient size (this includes techniques or standardized protocols for targeted exams where dose is matched to indication/reason for exam). Reviewed, dictated and finalized at location [facility]. [facility] IMPRESSION: No acute intracranial hemorrhage or extra axial fluid collections. All CT scans at this facility are performed using low dose modulation techniqu es as appropriate to perform exam including the following: automated exposure c ontrol; use of iterative reconstruction technique; adjustment of the mA and/or kV according to patient size (this includes techniques or standardized protocol s for targeted exams where dose is matched to indication/reason for exam).
[2025-09-30 17:50] VITALS: BP 126/90; PULSE 58; RESP 14; TEMP 36.6; O2SAT 99
--- NOTE | 2025-09-30 17:55 | ED.FALL ---
HPI - Fall General Chief Complaint: Fall Stated Complaint: fall Time Seen by Provider: 09/30/25 17:43 History of Present Illness HPI Narrative: Patient is a 85-year-old male who presents to the ER after sustaining a fall. He reports he reached down to picker something off the floor, his foot stuck, he slipped and fell backwards. Patient denies loss of consciousness, nausea/vomiting, or visual changes. He reports he is not on blood thinners. Patient also sustained a left elbow avulsion, but denies pain to the site. He endorses a history of Parkinson's, dementia, high blood pressure, and open-heart surgery. Patient reports he was discharged earlier today from the hospital due to high blood pressure. Related Data Home Medications ?Medication ?Instructions ?Recorded ?Confirmed ?Last Taken ?Type acetaminophen 500 mg tablet 500 mg PO DAILY 09/29/25 09/29/25 Unknown History aspirin,buffered (calcium 325 tablet PO HS 09/29/25 09/29/25 Unknown History carbonate-magnesium) 325 mg tablet (Tri-Buffered Aspirin) carbidopa 25 mg-levodopa 100 mg See Rx Instructions .Route .COMPLEX 09/29/25 09/29/25 Unknown History tablet carbidopa ER 50 mg-levodopa 200 mg 1 tablet PO DAILY@1900 09/29/25 09/29/25 Unknown History tablet,extended release cyanocobalamin (vitamin B-12) 500 500 mcg PO DAILY 09/29/25 09/29/25 Unknown History mcg tablet donepezil 23 mg tablet 23 mg PO DAILY 09/29/25 09/29/25 Unknown History ezetimibe 10 mg tablet 10 mg PO DAILY 09/29/25 09/29/25 Unknown History levothyroxine 112 mcg tablet 112 mcg PO DAILY 09/29/25 09/29/25 Unknown History metoprolol tartrate 25 mg tablet 25 mg PO BID 09/29/25 09/29/25 Unknown History polyethylene glycol 3350 17 17 g PO DAILY@0800 09/29/25 09/29/25 Unknown History gram/dose oral powder quetiapine 25 mg tablet 25 mg PO DAILY@0800 09/29/25 09/29/25 Unknown History quetiapine 50 mg tablet 50 mg PO HS 09/29/25 09/29/25 Unknown History white petrolatum-mineral oil 94 1 applic EACH EYE HS 09/29/25 09/29/25 09/27/25 20:00 History %-3 % eye ointment 1 applic tamsulosin 0.4 mg capsule 0.4 mg PO DAILY 09/30/25 09/30/25 Unknown History Allergies Allergy/AdvReac Type Severity Reaction Status Date / Time No Known Allergies Allergy Verified 09/30/25 18:00 Review of Systems Review of Systems: All systems reviewed & are unremarkable except as noted in HPI and below PMFSH Past Medical History Medical History Hypothyroidism CABG (coronary artery bypass graft) planned 5 vessel Retinal detachment Several years ago. 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 He has 2 children and she has 2 children. He is retired. Code status: DNR Smoking status: Never smoker Alcohol intake: never Substance use: never Lack of Transportation: No Lack of Food: Never True Current Housing: I Have Housing Concerned About Future Housing: No Difficulty Paying Gas/Electric Bills: No Difficulty Paying for Meds: No Currently Unemployed: No Education: Decline to Answer Difficulty w/ Childcare or Family Care: No Spiritual care concerns: No Exam Narrative: GENERAL: Well appearing, well-nourished, non-toxic, in no acute distress. HEAD: Normocephalic, atraumatic. Abnormal gaze at baseline NECK: Supple. No adenopathy, no masses. RESPIRATORY: Airway patent, respirations nonlabored. Clear to auscultation bilaterally, no rales, rhonchi, wheezing. CARDIOVASCULAR: Regular rate and rhythm without murmurs, rubs, or gallops. Peripheral pulses 2+ and equal bilaterally. ABDOMINAL: Soft, nontender, nondistended. Normoactive BS. MUSCULOSKELETAL: Moves all extremities. Strength/ROM intact without gross deformities. SKIN: Warm, dry, normal color. No rashes. Approximately 5 cm linear laceration to left parietal/occipital area. NEURO: A&O X3. Speech clear. Cranial nerves II-XII intact. PSYCHIATRIC: Appropriate mood and affect. Normal interaction. Course Vital Signs Vital signs: Vital Signs Temperature 36.6 C 09/30/25 17:50 Pulse Rate 58 L 09/30/25 17:50 Respiratory Rate 14 09/30/25 17:50 Blood Pressure 126/90 09/30/25 17:50 Pulse Oximetry 99 09/30/25 17:50 Oxygen Delivery Room Air 09/30/25 17:50 Temperature 36.6 C 09/30/25 17:50 Pulse Rate 67 09/30/25 21:46 Respiratory Rate 19 09/30/25 21:46 Blood Pressure 146/77 H 09/30/25 21:46 Pulse Oximetry 98 09/30/25 21:46 Oxygen Delivery Room Air 09/30/25 17:50 Procedures Laceration Laceration 1: Date: 09/30/25 Time: 18:21 Site: scalp Side (If applicable): left Size (cm): 5 Description: linear Depth: simple, single layer Local Anesthetic: none Pre-repair: wound explored and irrigated extensively ====== Skin Level ====== Skin layer closed with: chetna Number of sutures: 6 ====== Subcutaneous Layer ====== ====== Muscle Layer ====== ====== Tendon Layer ====== MDM MDM Narrative Medical decision making narrative: Patient is a 85-year-old male who presents to the ER after sustaining a fall. He reports he reached down to picker something off the floor, his foot stuck, he slipped and fell backwards. Patient denies loss of consciousness, nausea/vomiting, or visual changes. He reports he is not on blood thinners. Patient also sustained a left elbow avulsion, but denies pain to the site. He endorses a history of Parkinson's, dementia, high blood pressure, and open-heart surgery. Patient reports he was discharged earlier today from the hospital due to high blood pressure. Labs Ordered: None necessary Imaging Ordered: CT brain, CT cervical spine Medications Ordered: Tdap (patient declined this his family reports he had one in 2023) Results: Patient's CT scans indicate no acute osseous abnormalities. Diagnosis: Cervical strain, concussion without loss of consciousness, scalp laceration Patient Education/Shared MDM: Results of lab work and imaging shared with patient. Upon re-examination, pt's head wound has started to re-bleed. There is a large pool of blood in the bed and on the floor. Two more chetna were placed on pt's laceration. TXA was placed on gauze and applied to the laceration site. After ten minutes, dressing was removed and bleeding had subsided. Pt ambulated around the ER with a nurse. As pt returned back to his stretcher he endorses mild dizziness. It is assumed this may be d/t a concussion from pt's fall. His reports pt is two hours late with his Parkinson's medications, which may also be contributing to his symptoms. Extension discussion between ENDOSCOPE TECHNICIAN, pt, pt's daughter, and pt's . It was decided pt was safe to go home, as his vital signs remain stable, he is able to sit at the edge of the bed again without symptoms, and all parties believe pt will heal better at home. Patient strongly advised to maintain hydration status upon discharge and follow-up with his PCP as soon as possible for re-evaluation. He should have the chetna removed in 7-10 days. Pt will be discharged home with no new prescriptions. Strict return precautions provided. Patient verbalized understanding and is in agreement with plan. Vital signs stable at time of discharge. All questions answered. Differential Diagnosis Differential Diagnosis: Subdural hematoma, scalp laceration, concussion, cervical sprain Imaging Data Attestation: I personally reviewed and interpreted this imaging study as follows: Radiologist's impression: ITS Impressions Head CT 09/30/25 19:04 IMPRESSION: No acute intracranial hemorrhage or extra axial fluid collections. All CT scans at this facility are performed using low dose modulation techniques as appropriate to perform exam including the following: automated exposure control; use of iterative reconstruction technique; adjustment of the mA and/or kV according to patient size (this includes techniques or standardized protocols for targeted exams where dose is matched to indication/reason for exam). Cervical Spine CT 09/30/25 19:06 IMPRESSION: No acute fracture or subluxation. All CT scans at this facility are performed using low dose modulation techniques as appropriate to perform exam including the following: automated exposure control; adjustment of the mA and/or kV according to patient size (this includes techniques or standardized protocols for targeted exams where does is matched to indication/reason for exam; i.e. extremities or head); use of iterative reconstruction technique). Discharge Plan Discharge Clinical Impression: History of hypertensive crisis, Fall, Concussion without loss of consciousness, Laceration of scalp, History of Parkinson's disease Patient Disposition: NM Fpc/Asst Living Condition: Guarded Prognosis Instructions: Antibiotic Form, Laceration (ED), Head Injury (ED), Staple Care (ED) Additional Instructions: Please return to the ER with any worsening symptoms. Follow-up with primary care provider in the next 2-3 days to relieve re-evaluate your laceration. Take all medications as prescribed, including regularly scheduled medications. Remember to ask for help before you get up to walk. Please have your chetna removed in 7-10 days. You may take a bath or shower but allow water and soap to run over the site. Patient Language: Tajik Prescriptions: No Action white petrolatum-mineral oil 94-3 % ointment 1 applic EACH EYE HS aspirin,buffd-calcium carb-mag [Tri-Buffered Aspirin] 325 mg tablet 325 tablet PO HS acetaminophen 500 mg tablet 500 mg PO DAILY carbidopa-levodopa 50-200 mg tablet extended release 1 tablet PO DAILY@1900 quetiapine 50 mg tablet 50 mg PO HS quetiapine 25 mg tablet 25 mg PO DAILY@0800 polyethylene glycol 3350 17 gram/dose powder 17 g PO DAILY@0800 metoprolol tartrate 25 mg tablet 25 mg PO BID levothyroxine 112 mcg tablet 112 mcg PO DAILY carbidopa-levodopa 25-100 mg tablet See Rx Instructions .ROUTE .COMPLEX Rx Instructions: Pt 3 tablets at 0700 2.5 tablets at 1100 1 tablet at 1500 ezetimibe 10 mg tablet 10 mg PO DAILY donepezil 23 mg tablet 23 mg PO DAILY cyanocobalamin (vitamin B-12) 500 mcg tablet 500 mcg PO DAILY tamsulosin 0.4 mg capsule 0.4 mg PO DAILY Order Clarification Required [ Duplicate Therapy Order Clarification] 25 mg tablet 25 mg PO TID PRN (Reason: hypertension) Qty: 90 0RF Rx Instructions: Systolic >160 nifedipine 30 mg tablet extended release 30 mg PO DAILY Qty: 30 0RF Follow-up/Referrals: UNKNOWN,DOCTOR [Primary Care Provider] Stand Alone Forms: Halfway Discharge Time of Disposition: 21:56
--- OUTSIDE RECORDS SUMMARY | 2025-09-30 18:04 | XMS_ITS | Encounter Summary ---
Author Organization [facility] Address [address] [place] [address] Phone Care Team Providers Care Office Machine Embossograph Operator Name Role Phone Rober Carmona MD Primary Care Provi alexander Abelardo Fletcher MD Primary Care Provider [phone] Stephy Buckner PT Unavailable Unavailable Carol Velazquez SHRIMP BOAT CAPTAIN Unavailable [phone] Carol Velazquez NP Primary Care Provider [phone] Encounter Details Date Type Department Care Team (Late st Contact Info) Description 10/04/2017 Orders Only [facility] ProviderAyad MD [facility] [place] [address] Social History Tobacco Use Types Packs/Day Years Used Date Smoking Tobacco: Former Smokeless Tobacco: Never Comments:Smoking History Pac ks/day: 1.5 Packs Alcohol Use Standard Drinks/Week Comments No 0 (1 standard drink = 0.6 oz pur e alcohol) Sex and Gender Information Value Date Recorded Sex Assigned at Not on file Legal Sex Male 3:24 PM VULNERABILITY RESEARCHER Gender Identity Not on file Sexual Orientation Not on file documented as of this encounter Plan of Treatment Upcoming Encounters Date Type Department Care Team (Late Contact Info) Description 10/01/2025 4:00 PM VULNERABILITY RESEARCHER Residential Visit [facility] [address] [place] [address] Carol Velazquez SHRIMP BOAT CAPTAIN [address] [place] [address] [address] [place] [address] documented as of this encounter Procedures Procedure Name Priority Date/Time Associated Diagnosis Comments DISCHARGE LABORATORY CUMULATIVE REPORT 10/04/2017 12:00 AM VULNERABILITY RESEARCHER documented in this encounter Results * DISCHARGE LABORATORY CUMULATIVE REPORT (10/04/2017 12:00 AM VULNERABILITY RESEARCHER) Narrative 10/04/2017 12:00 AM VULNERABILITY RESEARCHER Ordered by an unspecified provider. us Historical Provider LAB BLOOD ORDERABLES Alondra l Result documented in this encounter Visit Diagnoses Not on filedocumented in this encounter Additional Health Concerns Infection Onset Date Last Indicated Resolved Time COVID: Suspected 06/26/2022 06/26/2022 06/26/2022 4:37 PM CDT documented as of this encounter Care Teams Office Machine Embossograph Operator Relationship Specialty Start Date End Date Rober Carmona MD PCP - General 01/26/17 05/03/22 Abelardo Fletcher MD [address] [place] [address] PCP - General Family Medicine 05/04/22 12/24/24 Carol Velazquez, WARD [address] [place] [address] PCP - General Hospice and Palliative Medicine 12/25/24 Stephy Buckner PT Physical Therapist Physical Therapy 06/14/22 Carol Velazquez, SHRIMP BOAT CAPTAIN [address] [place] [address] Nurse Practitioner Hospice and Palliative Medicine 09/09/24 documented as of this encounter
--- NOTE | 2025-09-30 18:05 | PC.NURSE ---
This RN called pt. to notify of pt. arrival to ER. Voicemail left. Return phone number given.
--- OUTSIDE RECORDS SUMMARY | 2025-09-30 18:05 | XMS_ITS | Encounter Summary ---
Author Organization [facility] Address [address] [place] [address] Phone Care Team Providers Care Forest Management Teacher Name Role Phone Rober Carmona MD Primary Care Provi alexander Abelardo Fletcher MD Primary Care Provider [phone] Stephy Buckner PT Unavailable Unavailable Carol Velazquez SEAFOOD PACKER Unavailable [phone] Carol Velazquez NP Primary Care Provider [phone] Encounter Details Date Type Department Care Team (Late Contact Info) Description 02/11/2018 Orders Only [facility] ProviderAyad MD [address] [place] [address] Social History Tobacco Use Types Packs/Day Years Used Date Smoking Tobacco: Former Smokeless Tobacco: Never Comments:Smoking History Pac ks/day: 1.5 Packs Alcohol Use Standard Drinks/Week Comments No 0 (1 standard drink = 0.6 oz pur e alcohol) Sex and Gender Information Value Date Recorded Sex Assigned at Not on file Legal Sex Male 3:24 PM GENERAL COUNSELOR Gender Identity Not on file Sexual Orientation Not on file documented as of this encounter Functional Status * In the past year, patient experienced: Question Answer Date of Assessment Author One or more falls in the last year No 2017 3:53 PM CDT Adilia Santana MA documented as of this encounter Plan of Treatment Upcoming Encounters Date Type Department Care Team (Late Contact Info) Description 10/01/2025 4:00 PM GENERAL COUNSELOR Residential Visit [facility] [address] [place] [address] Carol Velazquez, WARD [address] [facility] [address] [place] [address] documented as of this encounter Procedures Procedure Name Priority Date/Time Associated Diagnosis Comments DISCHARGE LABORATORY CUMULATIVE REPORT 02/11/2018 12:00 AM CDT documented in this encounter Results * DISCHARGE LABORATORY CUMULATIVE REPORT (02/11/2018 12:00 AM CDT) Narrative 02/11/2018 12:00 AM CDT Ordered by an unspecified provider. us Historical Provider LAB BLOOD ORDERABLES Alondra l Result documented in this encounter Visit Diagnoses Not on filedocumented in this encounter Additional Health Concerns Infection Onset Date Last Indicated Resolved Time COVID: Suspected 06/26/2022 06/26/2022 06/26/2022 4:37 PM CDT documented as of this encounter Care Teams Forest Management Teacher Relationship Specialty Start Date End Date Rober Carmona MD PCP - General 01/26/17 05/03/22 Abelardo Fletcher MD [address] [place] [address] PCP - General Family Medicine 05/04/22 12/24/24 Carol Velazquez SEAFOOD PACKER [address] [facility] [address] [place] [address] PCP - General Hospice and Palliative Medicine 12/25/24 Stephy Buckner PT Physical Therapist Physical Therapy 06/14/22 Carol Velazquez NP [address] [facility] [address] [address] Nurse Practitioner Hospice and Palliative Medicine 09/09/24 documented as of this encounter
--- OUTSIDE RECORDS SUMMARY | 2025-09-30 18:05 | XMS_ITS | Clinical Summary ---
Author Organization [facility] Address [address] [place] [address] Care Team Providers Care Vehicle Assembler Name Role Phone Stephy Buckner PT Unavailable Unavailable Carol Velazquez GARAGE MANAGER Unavailable [phone] Carol Velazquez NP Primary Care Provider [phone] Allergies Active Allergy Reactions Criticality Noted Date Comments Adhesive Rash Medium 07/06/2023 Atorvastatin Muscle pain Reaction: Muscular pain, , Reaction: Muscular pain, Venom-Honey Bee Other (See comments) Low Reaction: severe local hives, [place] And Derivatives Headache Low 01/14/2025 Codeine Nausea And Vomiting 09/01/2010 Latex Blisters,Redness High 11/16/2023 Monosodium Glutamate Headache Low 01/14/2025 Pravastatin Muscle pain Reaction: Muscular pain, , Reaction: Muscular pain, Simvastatin Muscle pain Reaction: Muscular pain, , Reaction: Muscular pain, Medications multivitamin tablet tablet Take according to rlrd-oec-hclzapr package directions 0 0 02/04/20 10 Active vitamin V47-docen acid 0.5-1 mg tablet Take 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 gasseri-B. bifidum-B longum 1.5 billion cell capsule Take 1 tablet by mouth early childhood education instructor before breakfast Active d-methorphan/PE/ac etaminophen (SIGIFREDO-SELTZER PLUS DAY ORAL) Take 1 tablet by mouth as needed Active polyethylene glycol (MIRALAX) 17 gram/dose bulk powderIndications: constipation Take 17 g by mouth daily 510 g 12/01/19 24 Active ezetimibe (ZETIA) 10 mg tablet TAKE 1 TABLET DAILY 30 tablet 11 06/24/20 24 Active escitalopram (LEXAPRO) 20 mg tablet Take 1 tablet (20 mg total) by mouth daily 90 tablet 1 07/14/20 24 Active traZODone (DESYREL) 50 mg tablet Take 1 tablet (50 mg total) by mouth nightly Only takes 1 pill 90 tablet 1 07/14/20 24 Active donepeziL (ARICEPT) 23 mg tablet TAKE 1 TABLET NIGHTLY 90 tablet 08/27/20 24 Active mineral oil/petrolatum,whi te (WHITE PETROLATUM-MINERAL OIL OPHT) Administer into affected eye(s) nightly as needed LUBRIFRESH P.M EYE OINTMENT 08/22/20 Active carboxymethylcellu lose (REFRESH LIQUIGEL) 1 % ophthalmic liquid gel drops Administer 1 drop into both eyes Active fluticasone (VERAMYST) 27.5 mcg/actuation nasal sprayIndications:S easonal allergies Administer 2 sprays into each nostril daily 5.9 mL 09/16/20 24 Active levothyroxine (Synthroid) 112 mcg tabletIndications: Acquired hypothyroidism TAKE 1 TABLET EARLY IN THE MORNING BEFORE BREAKFAST. 90 tablet 09/16/20 24 Active lisinopriL (PRINIVIL,ZESTRIL) 10 mg tabletIndications: Hypertensive heart disease without heart failure Take 0.5 tablets (5 mg total) by mouth 2 (two) times a day If SBP > 200 or DBP > 100, please give an additional 5 mg (0.5 tab) lisinopril 90 tablet 3 09/16/20 24 Active bismuth subsalicylate (PEPTO-BISMOL) suspension Take by mouth every 6 (six) hours as needed (Upset Stomach) Active magnesium hydroxide (MILK OF MAGNESIA) suspension 400 mg/5 mLIndications:cons tipation as needed Active docusate sodium (COLACE) 50 mg capsuleIndications :constipation Take 1 capsule (50 mg total) by mouth 2 (two) times a day as needed for constipation Active aspirin 81 mg enteric coated tablet Take 1 tablet (81 mg total) by mouth daily 30 tablet 11 09/23/20 24 Active aspirin 325 mg Take 1 tablet (325 mg total) by mouth every 6 (six) hours as needed for pain 180 tablet 09/23/20 24 Active Additional Information Patient not taking.Reported on 05/27/2025 clonazePAM (KlonoPIN) 0.5 mg tablet Take 1 tablet (0.5 mg total) by mouth nightly 09/23/20 24 Active Additional Information Patient not taking.Reported on 05/27/2025 QUEtiapine (SEROquel) 25 mg tablet Take 1 tablet (25 mg total) by mouth nightly 30 tablet 1 09/30/20 24 Active carbidopa-levodopa (SINEMET) 25-100 mg per tablet Take 4 tablets by mouth early childhood education instructor before breakfast AND 2.5 tablets daily with lunch AND 1 tablet daily with dinner. Disregard, previous instructions, pt is to take 4 tablets in the am, 2 tablets at lunch and 1 tablets at dinner.. 225 tablet 11 12/24/19 25 026 Active metoprolol tartrate (LOPRESSOR) 25 mg immediate release tablet 01/21/20 25 Active sodium chloride (DONNIE 128) 2 % ophthalmic solution 1 drop daily 01/22/20 25 Active folic acid (FOLVITE) 1 mg tablet Take 1 tablet (1 mg total) by mouth daily Active QUEtiapine (SEROquel) 50 mg tablet TAKE ONE TABLET BY MOUTH AT BEDTIME 44 tablet 5 02/17/20 25 Active tamsulosin (FLOMAX) 0.4 mg extended release capsuleIndications :Benign prostatic hyperplasia with nocturia Take 1 capsule (0.4 mg total) by mouth daily 90 capsule 3 05/07/20 25 Active vibegron 75 mg tabletIndications: Benign prostatic hyperplasia with nocturia,Urge incontinence Take 75 mg by mouth daily 90 tablet 3 05/07/20 25 Active Additional Information Patient not taking.Reported on 05/27/2025 acetaminophen (TYLENOL) 500 mg tablet 05/25/20 25 Active Sigifredo-Hymera OriginaL 325-1,916-1,000 mg tablet, effervescent 03/27/20 25 Active hydrALAZINE (APRESOLINE) 10 mg tablet 05/07/20 25 Active [facility] 3 billion cell capsule 05/25/20 25 Active Tab-A-Luis 400 mcg tablet 05/25/20 25 Active zpvqfgbwf-MZ-UP-ac etaminophen 2-5-10-325 mg capsule Take 2 tablets by mouth 2 (two) times a day as needed (congestion) 180 capsule 09/23/20 24 025 Additional Information Patient not taking.Reported on 05/27/2025 menthol-zinc oxide 0.44-20.6 % ointment Apply topically 3 (three) times a day as needed (moisture or irritation of skin) 113 g 11 09/29/20 24 025 Additional Information Patient not taking.Reported on 05/27/2025 Active Problems Problem Noted Date Diagnosed Date Psychosis 01/09/2025 Chronic kidney disease 10/05/2024 Assessment & Plan (10/05/2024 4:45 PM HANDER IN): - eGFR 34; stable from prior Dry eye syndrome of bilateral lacrimal glands Parkinson's disease without dyskinesia, without mention of fluctuations 06/03/2024 Assessment & Plan (06/03/2024 11:54 AM CDT): Chronic. Denies dyskinesia. Endorses gradual worsening hallucinations. Follows w/ neuro. Plan: Neurology managing. Presently taking Sinimet, Aricept & Nuplazid Family working w/ palliative care Continue OT Adjustment disorder with depressed mood 06/03/20 Exposure to potentially hazardous substance 03/2024 Low vision right eye category 1, normal vision l eft eye 06/03/2024 CKD (chronic kidney disease) stage 3, GFR 30-59 ml/min 06/03/2024 Visual hallucination 06/03/2024 Assessment & Plan (06/20/2024 4:05 PM CDT): Patient discusses his visual hallucinations and states that he realizes they are not actual persons or events but they do persist Assessment & Plan (06/03/2024 11:55 AM CDT): See A&P for parkinson's disease Endothelial corneal dystrophy, bilateral 024 Macular cyst, hole, or pseudohole, left eye 04/2024 Sensorineural hearing loss, bilateral 12/05/2023 Acute postoperative abdominal pain 11/30/2023 Renal mass 10/15/2023 Overview (07/10/2024): 10/15/23: NC. Renal mass. MRI abdomen liver w/wo (09/27/23) - solid enhancing mass in the anterior mid right kidney. 07/10/24: RP. 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 Assessment & Plan (02/14/2024 3:40 PM CDT): Stable, status post right renal nephrectomy; continues to follow with urology for surveillance Assessment & Plan (12/05/2023 5:09 PM HANDER IN): Stable, generally well controlled; continues to have abdominal pain; likely related to retained gas for insufflation; has some pain at incision sites; all incisions are well healed and approximated; no significant erythema or warmth; no drainage Patient has nausea; will start ondansetron t.i.d. with meals Encouraged continued activity to help with absorption of gas; Tylenol for pain management Paroxysmal ventricular tachycardia 09/12/2023 Assessment & Plan (06/03/2024 11:51 AM CDT): S/p recent cardio f/u. Plan: See A&P for CAD Return precautions given Nonrheumatic aortic valve stenosis 07/06/2023 Mitral prolapse 07/06/2023 Acute non-recurrent frontal sinusitis 06/26/2022 Assessment & Plan (06/27/2022 12:29 AM CDT): Started on IV Rocephin. Tylenol p.r.n.. Follow-up follow-up blood culture. Alzheimer's disease, unspecified 05/08/2022 Assessment & Plan (10/05/2024 4:03 PM HANDER IN): - Chronic; progressively worsening memory decline associated with Parkinson's - Continue Aricept; follow-up with Neurology - Pt to bring paperwork for memory care admission to office this afternoon Assessment & Plan (02/14/2024 3:40 PM CDT): Progressing; continues to have memory issues; follows with Neurology for management; may be combination of Parkinson's disease verses Lewy body dementia; continue donepezil 10 mg nightly Assessment & Plan (02/19/2023 4:57 PM CDT): Stable, slowly progressing; patient reports some changes inability to remember and focus on objects Follows closely with Neurology Assessment & Plan (12/22/2022 12:46 PM HANDER IN): No issues since discharge from hospital, no further episodes of hallucinations; continues to have memory issues; Contnue donepezil 10 mg nightly; lexapro 10 mg daily Assessment & Plan (06/27/2022 12:29 AM CDT): Resume home medications. Assessment & Plan (05/30/2022 3:29 PM CDT): Continues to have worsening memory, and decreased focus Continue Aricept 10 mg nightly [place] (dyspnea on exertion) 02/20/2022 Assessment & Plan (09/03/2022 8:48 AM HANDER IN): Reports continues to have some fatigue, is active for 60-90 minutes, no difficulty with motivation to work Generally feels weak, lifting only about 20 lb Has been losing weight Continues to exercise, using recumbent elliptical Assessment & Plan (02/20/2022 10:13 AM CDT): Likely from decoditioning but declines stress eval for cad issue check bnp PAC (premature atrial contraction) 02/13/2022 Assessment & Plan (02/13/2022 5:03 PM CDT): Trigeminy not causing anissue but aware of. nsr [place] 71 pac's trigemny patern. irbbb pattern Lower urinary tract symptoms (LUTS) 09/14/2021 Assessment & Plan (02/19/2023 4:55 PM CDT): Stable, continues to have symptoms, especially increased urination associated with drinking significant fluids Continue to monitor; continue tamsulosin 0.4 mg daily, mirabegron 50 mg daily Assessment & Plan (09/03/2022 8:51 AM HANDER IN): Moods are well controlled; PSA has increased from prior, though still within normal limits Will continue to monitor every 6 months to monitor continue changes Continue tamsulosin 0.4 mg BMI 24.0-24.9, adult 07/07/2021 Assessment & Plan (02/13/2022 3:28 PM CDT): Work to keep wt stable Assessment & Plan (07/07/2021 9:23 AM CDT): Work to keep wt up Urinary frequency 06/22/2021 Neurogenic orthostatic hypotension 05/03/2020 Assessment & Plan (02/14/2024 3:39 PM CDT): Stable, no recent episodes; will continue monitor closely given continued use of antihypertensives Assessment & Plan (10/01/2023 2:15 PM HANDER IN): Continue to be careful with standing or changing physicians; gentle management of blood pressure Assessment & Plan (06/25/2023 11:32 AM CDT): Generally well controlled; blood pressure at goal today; patient reports some dizziness upon standing, presyncopal events with blackness around periphery Decrease lisinopril to 5 mg daily; continue amlodipine 2.5 mg daily Assessment & Plan (02/19/2023 4:57 PM CDT): Stable, no current episodes of orthostatics; will continue to monitor closely; continue to adjust blood pressure medicine as necessary to reduce risk of orthostatics, falls or syncope Assessment & Plan (02/20/2022 10:08 AM CDT): bp drops sign and at home bp getsup to 130 on walking and if On meds to r aise bp will make that higher so will take both bp pills at nitht and cut the amlodip[ine in 10/30 which is not doing Assessment & Plan (02/13/2022 3:28 PM CDT): bp low and drops with standing and no apparent vertigo. Now bp low and drop on standing Will ctu the amlodipine to 1/2 and same goers for quinapril and comes back next week and and bring in meds . Assessment & Plan (07/07/2021 9:18 AM CDT): bp droopped a lot and for now suggest support hose and consider meds for help if needs Assessment & Plan (01/03/2021 2:06 PM HANDER IN): Will cut the quinapril to 20 from 40 to see if helps and consider suppofrt hose to help Assessment & Plan (05/03/2020 2:27 PM CDT): bp drps and for now not an issue ask to wear suport hose and stop sitting around Medicare annual wellness visit, subsequent 03/04 Assessment & Plan (12/22/2022 12:39 PM HANDER IN): Feels weaker, decreased speed with exercise; can only exercise for about 5 minutes; working to increase activity and continued HEP from PT Assessment & Plan (01/03/2021 2:14 PM HANDER IN): Well exam depreison well ctonrolled , fall risk mod. comg sc reen stable and nl. Gets flu shot had coivd vaccine series. Up to date on p shots. And had shinlges shot. See back in 6 monts and congt meds as On. Assessment & Plan (03/04/2019 10:59 AM CDT): Mod fall risk. D epression screen nl now. Hd both p shotos. fal flu shot. Colon 2013 qnd 10 yr repeoat. psa done now. Park stable to better. At moderate risk for fall 03/04/2019 Assessment & Plan (01/03/2021 2:12 PM HANDER IN): Mod fall risk Assessment & Plan (03/04/2019 10:58 AM CDT): Work to keep active Recurrent major depressive disorder, in full rem ission 10/08/2018 Assessment & Plan (02/14/2024 3:41 PM CDT): Stable, generally well controlled, continues to feel some due to lack of activity, limited today ability to perform many tasks that he used to perform Continue Lexapro 10 mg nightly Assessment & Plan (06/25/2023 11:31 AM CDT): Generally well controlled; patient in generally good mood, though does have some symptoms related to decreased physical activity Continue Lexapro 10 mg daily Assessment & Plan (02/19/2023 4:56 PM CDT): Stable, generally well controlled, has some feelings of down due to diagnosis, limitations and progressive nature of disease; mild changes from prior including occasional sarcastic remarks Continue Lexapro 10 mg daily Assessment & Plan (12/22/2022 12:44 PM HANDER IN): Stable, well controlled Continue Lexapro 10 mg daily Assessment & Plan (09/03/2022 8:51 AM HANDER IN): Stable, well controlled Continue Lexapro 10 mg daily Assessment & Plan (01/03/2021 2:11 PM HANDER IN): depreison controlleda nd stable on meds and stay on Assessment & Plan (05/03/2020 2:24 PM CDT): Stable and not apparently any changs Assessment & Plan (04/22/2019 3:27 PM CDT): Neuro psych studies with mild depresion now but park better. Declines referal or depresion rx and will see what thyroid changes joy do Assessment & Plan (03/04/2019 10:55 AM CDT): Bigger dose working well. No changes Assessment & Plan (10/08/2018 9:39 AM HANDER IN): Depression active and initial hjelpqwith lexpro and joy go to 20 mg and se if not Helpful. Abnormal serum creatinine level 10/08/2018 Assessment & Plan (03/04/2019 11:05 AM CDT): gfr 87 and 85 nl.check in a yr. Given borderline state will ask to check in a yr Assessment & Plan (10/08/2018 9:46 AM HANDER IN): estamated gfr 62 and will check 24 hr ruien to confirm Nocturia 10/08/2018 Assessment & Plan (10/08/2018 9:47 AM HANDER IN): Check psa Coronary artery disease of n ative artery of [place] heart with stable angina pectoris ([facility]) 04/08/2018 Assessment & Plan (06/03/2024 11:50 AM CDT): Chronic. Denies any angina at this time. Has had recent f/u w/ cardio in March. Reports of prior statin intolerance. Plan: Continue Lopressor 50mg BID Continue ASA Management per cardio recommendations Assessment & Plan (02/14/2024 3:39 PM CDT): Stable, generally well controlled, no chest pain; no changes in exercise tolerance; encouraged patient to engage with Parkinson's specific exercise to help improve exercise tolerance and maintain cardiac health LDL above goal for CAD; however given other medical concerns, would recommend dietary changes and continue to monitor Assessment & Plan (10/01/2023 2:15 PM HANDER IN): No significant chest pain; no peripheral edema or swelling; continue to optimize risk factors; continue metoprolol 25 mg daily, Zetia 10 mg daily; patient can not tolerate statin therapy, ASA 81 mg daily Assessment & Plan (06/25/2023 11:31 AM CDT): Not well controlled; patient reports decreased energy levels; also has complaints of chest pain as well as right-sided jaw pain, similar to prior heart disease Continue ASA 81 mg daily, will refer to cardiology for further workup Assessment & Plan (12/22/2022 12:41 PM HANDER IN): Decreased ET, dyspnea with climbing stairs; no chest pain or palpitations Defers cardiac work-up at this time Assessment & Plan (09/03/2022 8:48 AM HANDER IN): Stable, generally well controlled; patient has no chest pain, though does report some decreased energy levels Assessment & Plan (06/27/2022 12:32 AM CDT): No complains of chest pain. Continue aspirin, on amlodipine, aspirin, quinapril, and statin. Assessment & Plan (05/30/2022 3:27 PM CDT): Stable, well controlled; history of CABG 1995; no issues since bypass Patient does report episodes of skipped beats, but no major concerns at this time Continue with appropriate blood pressure control, as well as risk reduction with ASA and statin therapy Assessment & Plan (07/07/2021 9:20 AM CDT): Angina stable And con tmeds Assessment & Plan (01/03/2021 2:07 PM HANDER IN): Cad and stable chest pain Assessment & Plan (05/03/2020 2:26 PM CDT): Stable chest pain Assessment & Plan (03/04/2019 10:50 AM CDT): Stable cad. Assessment & Plan (10/08/2018 9:40 AM HANDER IN): Chest pain free with meds Assessment & Plan (06/19/2018 11:51 AM CDT): Heart c=stable and without issue And cont meds. Assessment & Plan (04/08/2018 4:01 PM CDT): Cont meds and report paoin Overweight with body mass in dex (BMI) of 25 to 25.9 in adult 06/21/2017 Assessment & Plan (06/20/2024 4:03 PM CDT): BMI 25.08 Assessment & Plan (01/03/2021 2:11 PM HANDER IN): Stable wt and stay here Assessment & Plan (05/03/2020 2:27 PM CDT): Work to keep st able Assessment & Plan (03/04/2019 10:48 AM CDT): Work to keep wt st able. Assessment & Plan (06/19/2018 11:51 AM CDT): Being over weight is dealt with by restriction of you daily calories and increasing your calorie needs with increases in your work load/exercises or just increases in daily activity. There are different programs for weight loss and they all are felt to be relatively equally effective and you can make a choice as to what works for you. Assessment & Plan (04/08/2018 4:00 PM CDT): Work to keep wt stable. Assessment & Plan (02/14/2018 4:19 PM CDT): Being over weight is dealt with by restriction of you daily calories and increasing your calorie needs with increases in your work load/exercises or just increases in daily activity. There are different programs for weight loss and they all are felt to be relatively equally effective and you can make a choice as to what works for you. IGT (impaired glucose tolerance) 06/21/2017 Assessment & Plan (10/05/2024 4:51 PM HANDER IN): - Stable, most recent HgA1c of 5.8 - Continues on Bydureon 2 mg/0.85 mL- subQ weekly-Discussed with Dr. Fletcher, pt to continue this med based on early Exenatide-PD3 trials results- suggest exenatide may of slow the progression of Parkinson's disease- Pt's would like to continue this med at this time - Monitor for episodes of hypoglycemia Assessment & Plan (06/20/2024 4:04 PM CDT): Labs reviewed. Hemoglobin A1c was 5.8 % on 06/13/2024 Assessment & Plan (12/22/2022 12:43 PM HANDER IN): Stable, a1c at target; no need for medication at this time Assessment & Plan (05/30/2022 3:26 PM CDT): No evidence of diabetes; last A1c was 5.4; continue to monitor p.r.n. Assessment & Plan (02/20/2022 10:11 AM CDT): a1c at 5.4 and good And no diet Assessment & Plan (05/03/2020 2:25 PM CDT): Check a1c on return Assessment & Plan (03/04/2019 10:53 AM CDT): a1c at 5.1 and nl. Assessment & Plan (10/08/2018 9:42 AM HANDER IN): a1c agt 5.3 and nl. Assessment & Plan (06/19/2018 11:49 AM CDT): a1c at 5.2 and very nl. Assessment & Plan (04/08/2018 3:59 PM CDT): Check sugar on return Assessment & Plan (02/14/2018 4:15 PM CDT): a1c at 5.4 and 5.6 nl. Assessment & Plan (06/21/2017 9:37 AM CDT): igt with a1c at 5.7 and 5.6 andless nl. Hypertensive heart disease without heart failure 07/10/2016 Overview (02/01/2017): HYPERTENSION NOS Assessment & Plan (10/05/2024 3:56 PM HANDER IN): - Chronic; stable at goal of < 140/90 - Continue lisinopril 5 mg b.i.d., metoprolol 50 mg b.i.d. - Monitor for episodes of hypotension, dysautonomia associated with progression of underlying Parkinson's Assessment & Plan (06/20/2024 4:02 PM CDT): BP stable at 132/86. Continue lisinopril 5 mg b.i.d., metoprolol 50 mg b.i.d. Assessment & Plan (06/03/2024 11:48 AM CDT): Labile. Poor control in AM. Plan: Change Lisinopril to 5mg BID Monitor BP for 1wk & inform of results Return precautions given. Assessment & Plan (02/14/2024 3:38 PM CDT): Stable, well controlled, blood pressure at goal; continue lisinopril 5 mg nightly; metoprolol 50 mg b.I.d. Assessment & Plan (10/01/2023 2:14 PM HANDER IN): Blood pressure at goal; continue lisinopril 5 mg daily, metoprolol 25 mg daily; patient has not started amiodarone due to concerns for side effects Will continue to monitor closely Assessment & Plan (02/19/2023 4:54 PM CDT): Blood pressure at target; generally well controlled Monitor closely for autonomic instability associated with Parkinson's disease continue amlodipine 2.5 mg daily Assessment & Plan (12/22/2022 12:40 PM HANDER IN): Blood pressure at target today; continue amlodipine 2.5 mg daily, quinapril 5 mg daily Assessment & Plan (09/03/2022 8:51 AM HANDER IN): Well controlled, has been running low normal Will decrease amlodipine to 2.5 mg daily in order to see if improves overall fatigue Continue quinapril 5 mg daily Assessment & Plan (05/30/2022 3:26 PM CDT): Stable, blood pressure at target; has known heart disease Continue amlodipine 5 mg daily, quinapril 10 mg daily Assessment & Plan (02/20/2022 10:09 AM CDT): The bp on walking higher and aware of it being higher on walkinga and if cake meds to raise thenalways a struggle. Hypertension, Medical treament revolves around weight control, salt management, and meds when necessary. long as weight loss is necessary and you are able to drop weight we can cont to monitor the blood pressure and not add meds. Once the weight is not changing then it becomes nesessary to add meds to be able to reach the goal bp. Assessment & Plan (07/07/2021 9:16 AM CDT): bp gtreat sitting nd drops on standing and back of and see if can ehlps some heart stable no diet Assessment & Plan (01/03/2021 2:08 PM HANDER IN): Heart stable and bp good no changes in medsHypertension, Medical treament revolves around weight control, salt management, and meds when necessary. long as weight loss is necessary and you are able to drop weight we can cont to monitor the blood pressure and not add meds. Once the weight is not changing then it becomes nesessary to add meds to be able to reach the goal bp. Assessment & Plan (05/03/2020 2:26 PM CDT): Heart stable and Pain free an dcont meds as on Assessment & Plan (03/04/2019 10:51 AM CDT): Bp good and no changesHypertension, Medical treament revolves around weight control, salt management, and meds when necessary. long as weight loss is necessary and you are able to drop weight we can cont to monitor the blood pressure and not add meds. Once the weight is not changing then it becomes nesessary to add meds to be able to reach the goal bp. Assessment & Plan (08/20/2018 12:51 PM CDT): Recommend DASH diet, heart-healthy lifestyle, exercise. Discussed the risks of hypertension. Assessment & Plan (06/19/2018 11:49 AM CDT): The bp god and no changesHypertension, Medical treament revolves around weight control, salt management, and meds when necessary. long as weight loss is necessary and you are able to drop weight we can cont to monitor the blood pressure and not add meds. Once the weight is not changing then it becomes nesessary to add meds to be able to reach the goal bp. Assessment & Plan (04/08/2018 4:00 PM CDT): bp good and no changesHypertension, Medical treament revolves around weight control, salt management, and meds when necessary. long as weight loss is necessary and you are able to drop weight we can cont to monitor the blood pressure and not add meds. Once the weight is not changing then it becomes nesessary to add meds to be able to reach the goal bp.. Assessment & Plan (02/14/2018 4:16 PM CDT): bp on high sie of nl. Consider med changes if stay uper liitsHypertension, Medical treament revolves around weight control, salt management, and meds when necessary. long as weight loss is necessary and you are able to drop weight we can cont to monitor the blood pressure and not add meds. Once the weight is not changing then it becomes nesessary to add meds to be able to reach the goal bp.. 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 He has asymmetric bradykinesia and rigidity as well as rest tremor of his right hand and jaw. Symptoms and exam are consistent with idiopathic PD. He had a DaTscan which was initially reported to be normal but showed asymmetry with decreased uptake in the left putamen when I reviewed it. There are no additional features to indicate other causes of parkinsonism. His symptoms improved with sinemet. He continues to have difficulty with fatigue.. My interpretation of NPT performed today.: He has mild cognitive impairment based on MoCA (21) with deficits in executive/visuospatial function and recall/short term memory. He has no cognitive impairment as assessed by MMSE (27). His MoCA socre was 26 and MMSE 23 on 02/21/24. He has mild to moderate depressive symptoms, mild RBD symptoms and mild anxiety. His PD symptoms significantly affect his quality of life. Start of visit 12:19 pm End of visit 1:30 pm Total time 74 min I had a long discussion with Mr. Ayoub and his about the challenges with his behavior at [facility] and his continued frustration with being there. His hallucinations/delusions have improved and do not appear to be problematic at the current level. His behavior has also been improving overall, including periods of agitation, impulse control disorder and hypersexuality. I recommended that they continue to discuss together with staff at his care facility and consider gradually adjusting restrictions that he finds frustrating as his behavior improves. He strongly prefers to be at home and I discussed that he and his can continue to discuss with their social work job titles at his care facility regarding his care needs and options. Recommendations: 1. Continue sinemet but reduce his 8am dose from 3.5 to 3 tabs. Continue 2.5 tabs at 12pm, 1.5 tabs at 5pm, and sinemet ER 1 tab at 8pm. I discussed that episodes of shivering and nausea are not likely to be wearing OFF episodes and that continuing sigifredo seltzer and tylenol as needed is reasonable. Impulse control disorder may improve further with reduction in sinemet and hopefully this will not significantly worsen movement and walking. 2. Continue escitalopram 20 mg qd. 3. Continue quetiapine 25 mg at bedtime. I discussed that we can increase the dose if hallucinations/delusions become more problematic or if impulse control, hypersexuality or agitation become more problematic.. We can also consider clozapine if needed. 4. Continue clonazepam at bedtime. 5. I encouraged exercise and encouraged him to stay active as much as possible. 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 He has had asymmetric bradykinesia and rigidity as well as rest tremor of his right hand and jaw. Symptoms thus far have been consistent with idiopathic PD. He had a DaTscan which was initially reported to be normal but showed asymmetry with decreased uptake in the left putamen when Dr. Ly reviewed it. There are no additional features to indicate other causes of parkinsonism. His symptoms improved with sinemet. Initially hallucinations decreased dramatically after stopping amantadine and reportedly resolved entirely for perhaps the past month or so until recurring yesterday morning with VH of multiple people in his bathroom. Over the past month or so he has developed inappropriate sexual behavior that has begun interfering with interpersonal relationships. He has some insight to being disinhibited though inconsistently so. Thus far the ISB is characterized by sex talk mostly though there has been a single sexual act described wherein he exposed his genitalia to a relative. On NPT 02/21/24 he had mild cognitive impairment with mild-moderate depressive symptoms though by history there are concerns for dementia. He episodes of confusion though active psychosis manifest as suspicious/delusional thinking and VH. He additionally has developed inappropriate sexual behavior (ISB) which is newer. Although psychosis initially improved dramatically with cessation of Amantadine, he has still had some suspicious thinking and newly recurrent VH (the VH which is reportedly just since yesterday). It is possible the recent addition of Vesicare may be contributory to the VH and given complaint of urinary frequency in past week, would recommend checking UA to rule out provoking factor of UTI. Regardless, the ISB preceded the VH and has been persistent perhaps for at least 4-5 weeks. He has thus far tolerated quetiapine 25 mg nightly at bedtime without apparent SE and we will first titrate this further to see if this is helpful. If needed, we could add an AM dose for BID dosing. 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 If unable to adequately address behaviors with quetiapine, will need to consider clozapine in the future Stop vesicare and avoid further anticholinergic agents - Would instead consider the following medications for treatment of overactive bladder: vibegron (Gemtesa), mirabegron (Mrybetriq), or trospium Reduce carbidopa-levodopa IR morning dose from 4 tabs to 3.5 tabs at 8 AM, for now can continue same afternoon and evening doses of 2.5 tabs then 1 tab (3.5/2.5/1) Although he is having what sounds like wearing OFF in the evening, we will avoid increasing levodopa at this time given psychosis and ISB They should update us next week on status He and his family would benefit from additional support (i.e. counseling/therapy) and will inquire if their palliative care team has resources for this Keep appointment with Dr. 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 He has asymmetric bradykinesia and rigidity as well as rest tremor of his right hand and jaw. Symptoms and exam are consistent with idiopathic PD. He had a DaTscan which was initially reported to be normal but showed asymmetry with decreased uptake in the left putamen when I reviewed it. There are no additional features to indicate other causes of parkinsonism. His symptoms improved with sinemet. He continues to have difficulty with fatigue.. My interpretation of previous NPT on 02/21/24: He has mild cognitive impairment, mold to moderate depressive symptoms, mild RBD symptoms. And minimal anxiety. His PD symptoms significantly affect his quality of life. Start of visit 9:32am End of visit 10:29 am Total time 60 min Recommendations: 1. Continue sinemet at the same dose, 3/2.5/1.5 tabs, plus sinemet ER 1 tab at 8pm. I discussed that he can try increasing one dose per day by 0.5 tab, probably sarting with his morning dose since he has the most trouble in the morning, and see if that is helpful for gait. 2. Continue escitalopram 20 mg qd. 3. Continue amantadine. I discussed that he can try tapering and stopping amantadine while watching for increased bothersome dyskinesia, which may improve hallucinations/delusions and thinking. 4. He can consider reducing or stopping trazadone at bedtime since it may no longer be needed for sleep now that he is taking clonazepam. 5,. I discussed that we can change nuplazid to clozapine if hallucinations/delusions become more problematic. 5. I encouraged exercise and encouraged him to stay active as much as possible within the limits of his fatigue. 6. 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 He has asymmetric bradykinesia and rigidity as well as rest tremor of his right hand and jaw. Symptoms and exam are consistent with idiopathic PD. He had a DaTscan which was initially reported to be normal but showed asymmetry with decreased uptake in the left putamen when I reviewed it. There are no additional features to indicate other causes of parkinsonism. His symptoms improved with sinemet. He continues to have difficulty with fatigue.. My interpretation of NPT: He has mild cognitive impairment, mold to moderate depressive symptoms, mild RBD symptoms. And minimal anxiety. His PD symptoms significantly affect his quality of life. Start of visit 9:25 am End of visit 10:12 am Total time 50 min Recommendations: 1. Continue sinemet at the same dose, 3/2.5/1.5 tabs, plus sinemet ER 1 tab at 8pm 2. Continue escitalopram 20 mg qd. 3. Continue amantadine. 4. I encouraged exercise and encouraged him to stay active as much as possible within the limits of his fatigue. 5. I discussed a transport chair. [facility] and let us know if they need us to provide an order. 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 Nuplazid 34 mg daily Assessment & Plan (12/05/2023 5:10 PM HANDER IN): Patient has been off Bydureon for 2 weeks; may not be covered by insurance; will recheck A1c at follow-up appointment to evaluate if patient has risk for type 2 diabetes which may allow for restarting Bydureon Will also take time to evaluate how patient was responding to therapy and feels having benefits; if patient continues to have symptoms, patient family would like to restart Assessment & Plan (10/01/2023 2:13 PM HANDER IN): Has some leading to left; would like referral for speech therapy to improve volume Continue Sinemet 1 tablet t.i.d.; exenatide 2 mg weekly Assessment & Plan (06/25/2023 11:30 AM CDT): Not well controlled, progressing; continues to be on high dose of Sinemet Patient now having difficulty with getting into and out of bed; standing from sitting including toilet Patient is able to perform some activities such as showering and feeding self Follows with Neurology for management Continue Sinemet 25-100 t.i.d.; 50-200 nightly, exenatide 2 mg weekly Assessment & Plan (02/19/2023 4:58 PM CDT): Generally well controlled though progressive disease; follows closely with Neurology for management Has some limitations in mobility and function Fatigues easily Patient reports new symptoms of dysphagia; difficulty with swallowing pills; does have high pill burden; approximately 11 pills in morning 10 pills in the evening Will continue to monitor, would recommend swallow study as needed for worsening symptoms Assessment & Plan (02/11/2023 1:51 PM CDT): He has stage 3 parkinsonism, 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 He has asymmetric bradykinesia and rigidity as well as rest tremor of his right hand and jaw. Symptoms and exam are consistent with idiopathic PD. He had a DaTscan which was initially reported to be normal but showed asymmetry with decreased uptake in the left putamen when I reviewed it. There are no additional features to indicate other causes of parkinsonism. His symptoms improved with sinemet. He continues to have difficulty with fatigue.. Start of visit 9:25am End of visit 10:05m Total time 43 min Recommendations: 1. Continue sinemet at the same dose, 3/2.5/1.5 tabs, plus sinemet ER 1 tab at 8pm 2. Continue escitalopram 20 mg qd. 3. Continue amantadine. 4. I encouraged exercise and encouraged him to stay active as much as possible within the limits of his fatigue. 5. I discussed RBD symptoms which are not too problematic. He can take melatonin 5 mg as needed at bedtime. 6. I discussed safety and fall prevention. I also discussed and recommended PT/OT and home OT eval. [facility] in a couple weeks. Assessment & Plan (09/12/2022 5:29 PM HANDER IN): Continues to have progressively worsening manual dexterity, decreased ability to play piano Worsening of swallowing, some difficulty with using silver or Continue with exenatide tied ER to mg weekly Assessment & Plan (09/03/2022 8:52 AM HANDER IN): Stable, improving; no episodes of hallucinations Continues to have some difficulty with memory and word-finding Assessment & Plan (07/20/2022 12:58 PM CDT): Mildly progression; patient recently admitted to hospital for altered mental status secondary to bacterial infection -patient reports improvement in breathing and rhinitis, mental status is back to baseline Patient reports he has episodes of hallucinations approximately 1-2 times per week, mostly 1 waking Continues to have cognition issues, including difficulty with solving problems May be progression of Parkinson's disease with cognitive changes Continue to monitor and follow with Neurology Will start Lexapro 10 mg daily for possible mood disturbances Assessment & Plan (05/30/2022 3:28 PM CDT): Not well controlled, significant symptoms related to Parkinson's disease; continues to have muscle wasting, feels like he has lost about 9% of his muscles, unable to open bottles or cans Has chronic constipation, urinary urgency with leakage; poor balance, with high risk for falls Tremors are well controlled; patient on Bydureon for Parkinson's disease with good relief of symptoms Assessment & Plan (05/04/2022 1:23 PM CDT): He has stage 2.5 parkinsonism, possible idiopathic PD. He has asymmetric bradykinesia and rigidity as well as rest tremor of his right hand and jaw. Symptoms and exam are consistent with idiopathic PD. He had a DaTscan which was initially reported to be normal but showed asymmetry with decreased uptake in the left putamen when I reviewed it. There are no additional features to indicate other causes of parkinsonism. His symptoms improved with sinemet. Movement and motor symptoms are partially improved from last visit after increasing his sinemet dose. He continues to have difficulty with fatigue.. Start of visit 12:23pm End of visit 1:08pm Total time 55 min Recommendations: 1. Continue sinemet at the same dose, 3/2.5/1.5 tabs. 2. Continue escitalopram 20 mg qd. 3. Continue amantadine. 4. I encouraged exercise and encouraged him to stay active as much as possible within the limits of his fatigue. 5. I discussed RBD symptoms which are not too problematic. He can take melatonin 5 mg as needed at bedtime. Assessment & Plan (04/07/2021 10:37 PM CDT): He has stage 2.5 parkinsonism, possible idiopathic PD. He has asymmetric bradykinesia and rigidity as well as rest tremor of his right hand and jaw. Symptoms and exam are consistent with idiopathic PD. He had a DaTscan which was initially reported to be normal but showed asymmetry with decreased uptake in the left putamen when I reviewed it. There are no additional features to indicate other causes of parkinsonism. His symptoms improved with sinemet and neupro. His motor symptoms are not adequately controlled on his current dose of sinemet and he does not have side effects or dyskinesia, so I recommended a trial of increasing his dose. He has also had difficulty with fatigue, depression and anxiety symptoms related to PD. Start of visit 9:15 End of visit 9:57 Total time 52 min Recommendations: 1. He should gradually increase his sinemet dose beginning with an increase in his morning dose to 2.5 tabs and can continue titrating up to 3/2.5/1.5 tabs. 2. Continue escitalopram 20 mg qd. 3. I encouraged him to do more walking for exercise.. Assessment & Plan (01/03/2021 2:08 PM HANDER IN): Kayli on suppression med with daren and see's neuro for additionally Assessment & Plan (05/03/2020 2:25 PM CDT): See's Neuro next week Assessment & Plan (08/13/2019 2:14 PM CDT): He has stage 2.5 parkinsonism, possible idiopathic PD. He has asymmetric bradykinesia and rigidity as well as rest tremor of his right hand and jaw. Symptoms and exam are consistent with idiopathic PD. He had a DaTscan which was initially reported to be normal but showed asymmetry with decreased uptake in the left putamen when I reviewed it. There are no additional features to indicate other causes of parkinsonism. His symptoms improved with sinemet and neupro. His motor symptoms are adequately controlled on his current dose of sinemet. He is having difficulty with mild to moderate depression and anxiety symptoms related to PD. Start of visit: 1:30pm, End of visit 2:00pm. More than 50% of the visit was devoted to counseling and coordination of care. Recommendations: 1. Continue sinemet at the same dose. 2. Continue escitalopram 20 mg qd. 3. I encouraged him to continue his regular exercise program that includes tennis. Assessment & Plan (06/24/2019 2:09 PM CDT): Takes enedelia for and feels from neuro an dself samantha alemance Assessment & Plan (03/04/2019 11:02 AM CDT): bydureon for a yr and facial maxk gone. Tremor gone. Eye blink nl.neuro feels working and better and study on feels better. And no other f=reason to be that is better.off lable us of bydureon and re discussed Assessment & Plan (10/08/2018 9:40 AM HANDER IN): On bydureon and feels see's multiple kristie of help and joy cont on it Assessment & Plan (06/19/2018 11:50 AM CDT): On meds and fatigue but not clear if diseae. Tremors better. And see neuro Assessment & Plan (04/08/2018 3:57 PM CDT): No intolerance of jewmeds and no oeffect aware of. No positive so far. Will cont meds. Noted wt off and he fdels not lost. Wt off joy need to moniotr. Check tsh on return early. With nov. Assessment & Plan (02/14/2018 4:27 PM CDT): See's Neuro and follows discussed bydureon and evedence of stoping progression of park. willconsider and realizes off lable but can sc ript but don't se insurance paying for., wants to try and wilol script and [facility] Assessment & Plan (06/21/2017 9:35 AM CDT): Trial low dose doxy to protect from park.sluggish.tired stable Hypothyroidism 03/14/2014 Overview (02/01/2017): Hypothyroidism Assessment & Plan (10/05/2024 3:54 PM HANDER IN): - Chronic; most recent TSH mildly elevated at 5.31, normal T4 - Continue levothyroxine 112 mcg daily - Repeat TSH in 3 months Assessment & Plan (06/20/2024 4:01 PM CDT): Continue levothyroxine 112 mcg daily. Labs reviewed. Assessment & Plan (02/14/2024 3:38 PM CDT): Stable, well controlled; last TSH at goal Continue levothyroxine 112 mcg daily Assessment & Plan (10/01/2023 2:14 PM HANDER IN): Stable, well controlled; TSH at goal Continue levothyroxine 112 mcg daily Assessment & Plan (06/25/2023 11:30 AM CDT): Stable, well controlled; TSH at goal Continue Synthroid 112 mcg daily Assessment & Plan (02/19/2023 4:55 PM CDT): Stable, TSH at target; recheck TSH today Patient reports generalized low energy Continue Synthroid 112 mcg daily; will adjust dose based upon TSH measurements Assessment & Plan (12/22/2022 12:44 PM HANDER IN): Last TSH at target; continue Synthroid 112 mcg Assessment & Plan (09/03/2022 8:50 AM HANDER IN): Stable, well controlled; TSH at target Continue Synthroid 112 mcg daily Assessment & Plan (07/20/2022 12:58 PM CDT): Well controlled, TSH and increase; patient reports for missed doses prior to getting blood drawn Patient now consistently taking levothyroxine, will recheck TSH in approximately 1 month Continue Synthroid 112 mcg daily Assessment & Plan (06/27/2022 12:29 AM CDT): Continue Synthroid Assessment & Plan (05/30/2022 3:27 PM CDT): Not well controlled, TSH was mildly low at 0.22 lower levothyroxine to 112 mcg daily Assessment & Plan (02/20/2022 10:10 AM CDT): Mildly hot and given feels better will leave as is and eats with pillto bring up tsh a touch Assessment & Plan (07/07/2021 9:19 AM CDT): Medically hyper and swill drop to 125 dailty in past felt sensetive to any touch low tsh so allowd to puch tsh down and now agrees to stevenson dose and only use 125 Assessment & Plan (01/03/2021 2:09 PM HANDER IN): tsh traqce low and leavde as it is Assessment & Plan (05/03/2020 2:26 PM CDT): Nice a tight and no changs Assessment & Plan (06/24/2019 2:09 PM CDT): tsh dropped but still not where he ewantsit given fatigue from Park and preceived benefits from tighter contorll Will abide and try to drop t sh but not wiling to have less then .05 Assessment & Plan (04/22/2019 3:28 PM CDT): tsh better but wants to tighten as felt better lower and joy go to 125 Assessment & Plan (03/04/2019 10:52 AM CDT): tsh Jumped to 5.58a nd go up to 112 and check in 6 wks. Assessment & Plan (10/08/2018 9:43 AM HANDER IN): tsh 1.47 and nl and was tolow or too hot. Cont current dose Assessment & Plan (06/19/2018 11:48 AM CDT): The tsh at .3 and will change meds to 112 from the 125 and Not take with food as has been on the 125. Assessment & Plan (04/08/2018 3:59 PM CDT): Keep meds same and check on return Assessment & Plan (02/14/2018 4:17 PM CDT): Very sensitive to meds. Discussed new meds Pharm to go to. 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 Overview (02/02/2017): MIXED HYPERLIPIDEMIA Assessment & Plan (06/20/2024 4:03 PM CDT): Continue to limit fats in diet and take fish oil capsules daily Assessment & Plan (02/14/2024 3:39 PM CDT): Stable, generally well controlled, LDL above goal for CAD; will continue to monitor closely, encourage diet and activity for management Assessment & Plan (02/19/2023 4:54 PM CDT): Stable, well controlled; no chest pain signs or symptoms of CAD Continue with low-fat high-fiber diet Assessment & Plan (12/22/2022 12:43 PM HANDER IN): Lipids at target for CAD Assessment & Plan (05/30/2022 3:26 PM CDT): Stable, well controlled; continue rosuvastatin 5 mg daily Assessment & Plan (02/20/2022 10:12 AM CDT): ldl at 59 and good No odiet Assessment & Plan (01/03/2021 2:11 PM HANDER IN): ldl at 61 and great on meds and no changesYour cholesterol in the form of ldl (bad) cholesterol,hdl(good) cholesterol and triglycerides are monitored. The triglycerides respond to reduction/controll of your simple carbs/sugars In such items as sugared soda/sweet tea along with fruit juices(containing natural sugar) even if no added sugar is added. LDL cholesterol is reduced with reducing daily intake of fats and luis. saturated fats. The monosaturated fats like olive oil are not harmful except in the calories they contained. Whole milk cheese needs to be remembered along with whole milk products And limited. Assessment & Plan (05/03/2020 2:21 PM CDT): ldl 71 and if comes up more then add zetia. 5. Your cholesterol in the form of ldl (bad) cholesterol,hdl(good) cholesterol and triglycerides are monitored. The triglycerides respond to reduction/controll of your simple carbs/sugars In such items as sugared soda/sweet tea along with fruit juices(containing natural sugar) even if no added sugar is added. LDL cholesterol is reduced with reducing daily intake of fats and luis. saturated fats. The monosaturated fats like olive oil are not harmful except in the calories they contained. Whole milk cheese needs to be remembered along with whole milk products And limited. Assessment & Plan (03/04/2019 10:56 AM CDT): ldl at 65 and great. Brenda allen Assessment & Plan (10/08/2018 9:41 AM HANDER IN): ldl at 83 and good. No Tiffanie cholesterol in the form of ldl (bad) cholesterol,hdl(good) cholesterol and triglycerides are monitored. The triglycerides respond to reduction/controll of your simple carbs/sugars In such items as sugared soda/sweet tea along with fruit juices(containing natural sugar) even if no added sugar is added. LDL cholesterol is reduced with reducing daily intake of fats and luis. saturated fats. The monosaturated fats like olive oil are not harmful except in the calories they contained. Whole milk cheese needs to be remembered along with whole milk products And limited. Assessment & Plan (06/19/2018 11:50 AM CDT): The ldl droped to 66 and great and brenda cohen Assessment & Plan (04/08/2018 3:59 PM CDT): Check and stay withmeds on returnYour cholesterol in the form of ldl (bad) cholesterol,hdl(good) cholesterol and triglycerides are monitored. The triglycerides respond to reduction/controll of your simple carbs/sugars In such items as sugared soda/sweet tea along with fruit juices(containing natural sugar) even if no added sugar is added. LDL cholesterol is reduced with reducing daily intake of fats and luis. saturated fats. The monosaturated fats like olive oil are not harmful except in the calories they contained. Whole milk cheese needs to be remembered along with whole milk products And limited. Assessment & Plan (02/14/2018 4:18 PM CDT): ldl at 67 and great levels. No changesYour cholesterol in the form of ldl (bad) cholesterol,hdl(good) cholesterol and triglycerides are monitored. The triglycerides respond to reduction/controll of your simple carbs/sugars In such items as sugared soda/sweet tea along with fruit juices(containing natural sugar) even if no added sugar is added. LDL cholesterol is reduced with reducing daily intake of fats and luis. saturated fats. The monosaturated fats like olive oil are not harmful except in the calories they contained. Whole milk cheese needs to be remembered along with whole milk products And limited. Assessment & Plan (06/21/2017 9:37 AM CDT): ldl at 70 and great and no changesYour cholesterol in the form of ldl (bad) cholesterol,hdl(good) cholesterol and triglycerides are monitored. The triglycerides respond to reduction/controll of your simple carbs/sugars In such items as sugared soda/sweet tea along with fruit juices(containing natural sugar) even if no added sugar is added. LDL cholesterol is reduced with reducing daily intake of fats and luis. saturated fats. The monosaturated fats like olive oil are not harmful except in the calories they contained. Whole milk cheese needs to be remembered along with whole milk products And limited. Arthralgia of multiple joints 06/18/2013 Overview (02/01/2017): Arthralgia of multiple joints Assessment & Plan (09/12/2022 5:30 PM HANDER IN): Likely OA of left knee; with swelling on lateral aspect; symptoms have now resolved; patient reports injections of exenatide tied into bilateral thighs; low risk of septic arthritis at this time given symptoms have resolved Will continue to monitor; if symptoms return, will get imaging, encourage physical therapy are evaluation by Orthopedics depending on symptoms Impotence of organic origin 08/15/2012 Overview (02/01/2017): Erectile dysfunction of organic origin Disorder of peripheral nervous system 07/04/2012 Overview (02/01/2017): Peripheral neuropathy Assessment & Plan (01/03/2021 2:15 PM HANDER IN): Stable preipheral neuropathy and see's nweuor for Assessment & Plan (03/04/2019 10:51 AM CDT): Nl [id number] and cobnt as you are doing Assessment & Plan (04/08/2018 4:00 PM CDT): stble and watch Obstructive sleep apnea syndrome in adult 2011 Overview (02/02/2017): Obstructive sleep apnea syndrome in adult Assessment & Plan (02/19/2023 4:57 PM CDT): Stable, generally well controlled, but does report some continued daytime fatigue Encouraged use of Provigil 100 mg daily Assessment & Plan (12/22/2022 12:56 PM HANDER IN): No use of CPAP; not needed for 3-4 year due to weight loss. 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 Ischemic heart disease 06/18/201302/14 Overview (02/02/2017): Ischemic heart disease Impaired cognition 04/01/2013 8 Overview (02/01/2017): Cognitive impairment Sluggishness 07/04/2012 02/14/2018 Overview (02/01/2017): Bradykinesia Carpal tunnel syndrome 07/04/201206/21 Overview (02/01/2017): Carpal tunnel syndrome Hypersomnia with sleep apnea 03/28/2012 06/21/2017 Overview (02/01/2017): Hypersomnia with sleep apnea Adiposity 03/28/2012 02/14/2018 Overview (02/01/2017): Obesity Encounters Date Type Department Care Team Description 09/22/2025 11:10 AM HANDER IN Lab [address] [address] Hypothyroidism, unspecified type; Abnormal serum creatinine level; Stage 3 chronic kidney disease, unspecified whether stage 3a or 3b CKD (HCC) 09/22/2025 Orders Only [facility] Palliative Care [address] [place] [address] Carol Velazquez NP Abnormal serum creatinine level (Primary Dx); Stage 3 chronic kidney disease, unspecified whether stage 3a or 3b CKD (HCC); Hypothyroidism, unspecified type 09/04/2025 10:30 AM HANDER IN Residential Visit [facility] Palliative Care [address] [place] [address] Carol Velazquez NP Parkinson's disease with dyskinesia and fluctuating manifestations (HCC) (Primary Dx) 07/14/2025 Results Follow-Up [facility]rology [address] [facility] [address] [place] [address] Abdomen W WO Contrast 07/03/2025 1:40 PM CDT Lab [address] [address] 07/03/2025 1:39 PM CDT - 07/03/2025 11:59 PM CDT Hospital Encounter [facility] [address] [place] [address] Renal mass Discharge Disposition: Discharge to home or self care 07/02/2025 Telephone [facility] [address] [place] [id number] Nalepa, Dilia D. from Last 3 Months Immunizations Immunization Administration Dates Next Due COVID-19 MRNA (MODERNA) .5 M L (50 MCG) VACCINE (12 YEARS AND UP) 07/13/2024 COVID-19 mRNA (PFIZER) 0.3 m L (30 mcg) vaccine (12 years and up) 07/16/2023 Influenza, Quadrivalent, Hig h Dose, Preservative Free, Intrr 07/16/2023,07/12/2022,06/27/2021,06/24 Influenza, Split 08/15/2012, 1,08/25/2010,07/29 Influenza, Trivalent, Adjuva nted, Intramuscular 07/25/2019,07/30/2018,07/29/2018 Influenza, Trivalent, High D ose, Split, Preservative Free, Intramuscular 07/30/2017,07/10/2016,08/25/2015,08/06,08/06/2014,08/14/2013 Influenza, Trivalent, IM (MDV) 07/27/2009,2007 Influenza, Unspecified 07/13/2024,2022(Deferred: Patient Refused),06/27/2021,06/24/2019(Deferre d: Patient Refused),07/30/2018 Pfizer SARS-CoV-2 Monovalent Vaccination (12+ Yrs) PURPLE 12/20/2020,11/22/2020 Pneumococcal Conjugate PCV 13 02/16/2015 Pneumococcal Polysaccharide PPV23 10/29/2007,03/2007 Tdap 08/07/2024 ZOSTER LIVE 05/08/2008 ZOSTER Recombinant 10/05/2019,07/25/2019 Surgical History Surgery Date Site/Laterality Comments CORONARY ARTERY BYPASS GRAFT 1995 CABG CHOLECYSTECTOMY 1995 Cholecystectomy OTHER SURGICAL HISTORY seen dr herlinda small of january: testesztrone level OTHER SURGICAL HISTORY dr mcclain in sep: sleep apnea OTHER SURGICAL HISTORY Cholecystitis: Cholecystectomy CORONARY ARTERY BYPASS GRAFT CABG OTHER SURGICAL HISTORY 1995 coronary artery blockage: cardiac bypass OTHER SURGICAL HISTORY 1995 Cholelithiasis: Cholecystectomy OTHER SURGICAL HISTORY Cardiac bypass 1995 OTHER SURGICAL HISTORY Cholecystectomy 1995 OTHER SURGICAL HISTORY 2012 AC hypertrophy with subacromial pingment/ possible rotator cuff pathology: Left AC resection with anterior acromioplasty OTHER SURGICAL HISTORY 2014 L eye macular hole: surgery CATARACT EXTRACTION cataract surgery CATARACT EXTRACTION ORAL SURGERY 06/02/2024 tooth pulled ABDOMINAL SURGERY 2022 Medical History Medical History Date Comments Hx Other Medical Hypothyroidism, Primary Cardiovascular disease Coronary artery disease Hyperlipidemia Hyperlipidemia Hypertension Hypertension Disorder of thyroid Thyroid dise ase Hx Other Medical [address] herlinda small of january Hx Other Medical 2010 dr mcclain in sep Hx Other Medical Carotid artery disease Hx Other Medical Cholecystitis Hx Other Medical Headache, migra ine Tension headache Headache, tensi on Hx Other Medical 1995 coronary artery blockage Cholelithiasis 1995 Cholelithiasis Hx Other Medical sleep apnea, on cpap Hx Other Medical 2011 Parkinson's dis ease Hx Other Medical AC hypertrophy with subacromial pingment/ possible Hx Other Medical L eye macular h ole Hx Other Medical eye surgery 04/29 07/13 dr quintero Renal cell carcinoma (HCC) Sleep apnea Depression Heart disease 1994 Neuromuscular disorder 2007 Blindness R eye 2015 Family History Medical History Relation Name Comments Other Brother 3 Alive and well; Other Brother 4 Alive and well; Migraines Brother 5 Migraine; Asthma Father Brodie Ayoub Asthma; Coronary artery disease Father Brodie Ayoub Bull nary artery disease; Emphysema Father Brodie Ayoub Emphysema; Heart disease Father Brodie Ayoub Heart disease; Hypertension Father Brodie Ayoub Hypertension; Kidney disease Father Brodie Ayoub Renal disease ; Other Father Brodie Ayoub Renal failure / stroke; Cause of : Renal failure / stroke Stroke Father Brodie Ayoub Stroke; Car Accident Mother Car accident; C ause of : Car accident Migraines Mother Migraine; /Migr aines; Other Mother ; Arthritis Other 1 Family Hx Arthritis; Hypertension Other 1 Family Hx Hypertension; Other Other 3 No family histo ry of Diabetes mellitus; Anesthesia problems Neg Hx Malig Hypertension Neg Hx Malig Hyperthermia Neg Hx Pseudochol deficiency Neg Hx Relation Name Status Comments Brother 1 Alive Brother 2 Alive Brother 3 Brother 4 Brother 5 Father Brodie Ayoub Alive Mother Alive Other 1 Family Hx Alive Other 2 Family Hx Alive Other 3 Social History Tobacco Use Types Packs/Day Years Used Date Smoking Tobacco: Former Cigarettes 1.5 20 0 10/29/1959 - 10/29/1979 Passive Smoke Exposure: Never Smokeless Tobacco: Never Tobacco Cessation:Counseling Given: Not Answered Comments:Smoking History Packs/day: 1.5 Packs Alcohol Use Standard Drinks/Week Comments No 0 (1 standard drink = 0.6 oz pur e alcohol) AUDIT-C Answer Date Recorded Frequency of Alcohol Consumption Not on file 11/30/2023 Q2: How many drinks containi ng alcohol do you have on a typical day when you are drinking? Patient does not drink Frequency of Binge Drinking Not on file 11/2023 PHQ-2 Answer Date Recorded PHQ-2 Total Score (If total score is 3 or more points, staff should administer the PHQ-9) 6 09/23/2024 PHQ-9 Answer Date Recorded PHQ-9 Total Score 16 09/23/2024 Personal Safety Answer Date Recorded Have you ever been in or are you currently in a harmful physical or emotional relationship or is someone making you feel afraid or unsafe? Denies 11/30/2023 Sex and Gender Information Value Date Recorded Sex Assigned at Not on file Legal Sex Male 3:24 PM HANDER IN Gender Identity Not on file Sexual Orientation Not on file Last Filed Vital Signs Vital Sign Reading Time Taken Comments Blood Pressure 168/92 05/27/2025 2:01 PM CDT Pulse 54 05/27/2025 2:01 PM CDT Temperature 36.4 C (97.5 F) 05/03/2025 12:30 PM CDT Respiratory Rate 18 05/27/2025 2:01 PM CDT Oxygen Saturation 98% 05/03/2025 12:30 PM CDT Inhaled Oxygen Concentration - - Weight 73.9 kg (163 lb) 05/27/2025 2:01 PM CDT Height 165.1 cm (5' 5) 05/27/2025 2:01 PM CDT Body Mass Index 27.12 05/27/2025 2:01 PM CDT Plan of Treatment Upcoming Encounters Date Type Department Care Team (Late st Contact Info) Description 10/01/2025 4:00 PM HANDER IN Residential Visit [facility] Palliative Care [address] [place] [address] Carol Velazquez GARAGE MANAGER [address] [facility] [address] [place] [address] Health Maintenance Due Date Last Done Comments Hepatitis B Screening 1958 Prostate Cancer Screening-PSA 02/20/2024, 07/10/2022, 06/29/2021, Additional history exists Covid-19 Vaccine (2024-11 6 season) 2025 07/13/2024, 07/16/2023, 07/22/2022, Additional history exists Influenza Vaccine (#1) 2025 , 07/16/2023, 07/12/2022, Additional history exists Fall Risk Assessment 09/23/2025 09/23/2024, 06/03/2024, 02/06/2024, Additional history exists Well Visit 65+ 09/23/2025 09/23/2024, 01/28, 10/16/2022, Additional history exists Depression Screening 02/05/2026 02/05/2025, 09/23/2024, 09/23/2024, Additional history exists DTaP/Tdap/Td Vaccine (2 - Td or Tdap) 08/07/2034 08/07/2024 Colon Cancer Screening-CT Colonography Discontinued 09/18/2013, 09/18/2013 Colon Cancer Screening-Colonoscopy Discontinued 09/18/2013, 09/18/2013 Colon Cancer Screening-DNA Stool Discontinued 09/18/20 13, 09/18/2013 Colon Cancer Screening-FIT Discontinued 09/18/2013, Colon Cancer Screening-Sigmoidoscopy Discontinued 09/18/2013, 09/18/2013 Pneumococcal vaccine 65+ Completed 015, 10/29/2007, 10/03/2007 Zoster Vaccine Completed 10/05/2019, 06/30, 05/08/2008 Abdominal Aortic Aneurysm (A AA) Screen Completed 07/03/2025 Procedures Procedure Name Priority Date/Time Associated Diagnosis Comments EGFR Routine 09/22/2025 11:19 AM HANDER IN Abnormal serum creatinine level Stage 3 chronic kidney disease, unspecified whether stage 3a or 3b CKD (HCC) COMPREHENSIVE METABOLIC PANEL Routine 09/22/2025 11:19 AM HANDER IN Abnormal serum creatinine level Stage 3 chronic kidney disease, unspecified whether stage 3a or 3b CKD (HCC) CBC WITHOUT DIFFERENTIAL Routine 09/22/2025 11:19 AM HANDER IN Abnormal serum creatinine level Stage 3 chronic kidney disease, unspecified whether stage 3a or 3b CKD (HCC) TSH Routine 09/22/2025 11:19 AM HANDER IN Hypothyroidism, unspecified type CT ABDOMEN W WO CONTRAST Schedule Routine, Read Routine (OP Routine) 07/03/2025 2:21 PM CDT Renal mass CREATININE, WHOLE BLOOD STAT 07/03/2025 1:47 PM CDT PSA SCREEN Routine 02/19/2023 11:10 AM CDT Lower urinary tract symptoms (LUTS) HM COLONOSCOPY Routine 09/18/2013 from Last 3 Months or Most Recently Relevant to Health Maintenance Results * (ABNORMAL) eGFR (09/22/2025 11:19 AM HANDER IN) eGFR 51(L) >=60 mL/min/1. 73 m2 Comment: Interpretive Data Reference Interval Normal >/= 90 mL/min/1.73m2 Mildly decreased* 60 - 89 mL/min/1.73m2 Mildly to moderately decreased 45 - 59 mL/min/1.73m2 Moderately to severely decreased 30 - 44 mL/min/1.73m2 Severely decreased 15 - 29 mL/min/1.73m2 Kidney Failure < 15 mL/min/1.73m2 *Relative to young adult level Estimated glomerular filtration rate is determined by the 2020 CKD-EPI equation recommended by the National Kidney Foundation (A Unifying Approach to GFR Estimation: Recommendations of the NKF-ASK Task Force on Reassessing the Inclusion of Race in Diagnosing Kidney Disease, JASN 2020). The CKD-EPI equation should not be used for patients with unstable renal function and has not been validated in children and those over 70. Current interpretive data was last reviewed 2021. Blood 09/22/2025 11:1 9 AM HANDER IN 09/22/2025 2:24 PM HANDER IN Carol Velazquez GARAGE MANAGER LAB BLOOD ORDERABLES Final R esult Performing Organization Address City/[facility]/ZIP Co de Phone Number [facility] [address] [place] [place] [address] * (ABNORMAL) CBC without differential (09/22/2025 11:19 AM HANDER IN) WBC 6.68 3.80 - 9.90 K/cumm Hgb 11.6(L) 13.0 - 17.5 g/dL [facility] Hct 35.8(L) 38.9 - 50.3 % [facility] Plt 175 150 - 400 K/cumm [facility] MPV 9.1 9.1 - 12.3 fL [facility] RBC 3.56(L) 4.30 - 5.80 M/cumm [facility] MCV 100.6(H) 81.3 - 96.4 fL [facility] MCH 32.6 27.1 - 33.3 pg [facility] MCHC 32.4 32.3 - 35.7 g/dL [facility] RDW CV 12.4 11.1 - 14.9 % [facility] RDW SD 46.2 35.7 - 48.1 fL [facility] NRBC abs 0.00 0.00 - 0.01 K/cumm [facility] Blood Venous blood specimen / Unknown 09/22/2025 11:19 AM HANDER IN 09/22/2025 2:24 PM HANDER IN Carol Velazquez GARAGE MANAGER LAB BLOOD ORDERABLES Final R esult Performing Organization Address City/[facility]/ZIP Co de Phone Number [facility] [address] [place] [employer] [place] [address] * TSH (09/22/2025 11:19 AM HANDER IN) Pathologist [facility] Thyroid Stimulating Hormone 0.92 0.30 - 4.20 mcIUnit/mL Blood Venous blood specimen / Unknown 09/22/2025 11:19 AM HANDER IN 09/22/2025 2:24 PM HANDER IN us Carol Velazquez GARAGE MANAGER LAB BLOOD ORDERABLES Final R esult [facility] [address] [facility] [place] [address] * (ABNORMAL) Comprehensive metabolic panel (09/22/2025 11:19 AM HANDER IN) [facility] Sodium 139 135 - 145 mmol/L Potassium, pl 4.9 3.3 - 4.9 mmol/L [facility] Chloride 104 97 - 110 mmol/L [facility] CO2 26 22 - 32 mmol/L [facility] Anion gap 9 2 - 15 mmol/L [facility] BUN 18 6 - 25 mg/dL [facility] Creatinine 1.37(H) 0.80 - 1.30 mg/dL [facility] Glucose 81 70 - 199 mg/dL [facility] Comment: Interpretive Data Fasting glucose >/= 126 mg/dl is diagnostic for diabetes. Fasting is defined as no caloric intake for at least 8 hours. Fasting glucose between 100 mg/dl to 125 mg/dl is diagnostic of prediabetes. In a patient with classic symptoms of hyperglycemia or hyperglycemic crisis, a random glucose >/= 200 mg/dl is diagnostic for diabetes. In the absence of unequivocal hyperglycemia, results should be confirmed by repeat testing. The classification and Diagnosis of Diabetes Diabetes Care 202; 46: S19-S40. Current interpretive data was last revised 2022. Calcium 9.4 8.5 - 10.3 mg/dL [facility] Bilirubin, total 0.2 0.1 - 1.2 mg/dL [facility] Protein, pl 6.3(L) 6.5 - 8.5 g/dL [facility] Albumin 3.9 3.5 - 5.0 g/dL [facility] Alk phos 81 40 - 130 Units/L [facility] ALT <5(L) 7 - 55 Units/L [facility] AST 24 10 - 50 Units/L [facility] Blood Venous blood specimen / Unknown 09/22/2025 11:19 AM HANDER IN 09/22/2025 2:24 PM HANDER IN us Carol Velazquez GARAGE MANAGER LAB BLOOD ORDERABLES Final R esult [facility] [address] [facility] [place] [address] * CT Abdomen W WO Contrast (07/03/2025 2:21 PM CDT) Anatomical Region Laterality Modality Body N/A Computed Tomogra phy 07/13/2025 12:0 8 PM CDT Narrative 07/13/2025 12:23 PM CDT EXAM DESCRIPTION: CT ABDOMEN W WO CONTRAST REASON FOR STUDY: Renal mass/cyst, indeterminate Hx of Rt kidney mass, chronic kidney disease and Rt kidney removal. TECHNIQUE: CT scan of the abdomen performed without and with intravenous and without oral contrast using helical scanning technique with dynamic intravenous contrast injection. Reconstructed coronal and sagittal MPR images reviewed. All images stored on PACS. Automated exposure control was used as a dose optimization technique for this examination. CONTRAST TYPE/DOSE: 75mL of IOVERSOL 350 MG IODINE/ML INTRAVENOUS SYRINGE injected via intravenous COMPARISON: MRI dated September 27, 2023 FINDINGS: LOWER CHEST: No pleural or pericardial effusion. Mild fibrotic changes in the lung bases. Coronary artery calcified atherosclerosis. LIVER: Liver is normal in size. Scattered hepatic cysts. No concerning hepatic lesions are seen. GALLBLADDER: Surgically absent BILE DUCTS: No intrahepatic or extrahepatic ductal dilatation. SPLEEN: Normal size. No focal lesions. PANCREAS: No identified cystic or solid masses. No significant calcifications. No adjacent inflammation or peripancreatic fluid collections. Pancreatic duct not dilated. ADRENALS: Normal. KIDNEYS/URINARY TRACT: No identified significant cystic or solid masses. No stones. No hydronephrosis or hydroureter. Interval right nephrectomy. No abnormal soft tissue in the surgical bed to suggest the presence of residual/recurrent disease.. GI: No dilated bowel loops. No obvious wall thickening. No significant diverticular disease. PERITONEUM: No ascites or free air. RETROPERITONEUM: No adenopathy. VASCULATURE: No abdominal aortic aneurysm. MUSCULOSKELETAL: No acute findings. OTHER: No other significant abnormality. IMPRESSION: 1. Interval right nephrectomy. No abnormal soft tissue in the surgical bed to suggest the presence of residual/recurrent disease. 2. No evidence of metastatic disease to the abdomen. THIS IS AN ELECTRONICALLY VERIFIED FINAL REPORT 07/13/2025 12:23 PM - Electronically signed by Jensen Davis M.D. JA: AMINA Report ID: [id number] Reading Location: [id number] Procedure Note Jensen Davis MD - 07/13/2025 EXAM DESCRIPTION: CT ABDOMEN W WO CONTRAST REASON FOR STUDY: Renal mass/cyst, indeterminate Hx of Rt kidney mass, chronic kidney disease and Rt kidney removal. TECHNIQUE: CT scan of the abdomen performed without and with intravenousand without oral contrast using helical scanning technique with dynamic intravenous contrast injection. Reconstructed coronal and sagittal MPRimages reviewed. All images stored on PACS. Automated exposure control was usedas a dose optimization technique for this examination. CONTRAST TYPE/DOSE: 75mL of IOVERSOL 350 MG IODINE/ML INTRAVENOUSSYRINGE injected via intravenous COMPARISON: MRI dated September 27, 2023 FINDINGS: LOWER CHEST: No pleural or pericardial effusion. Mild fibrotic changesin the lung bases. Coronary artery calcified atherosclerosis. LIVER: Liver is normal in size. Scattered hepatic cysts. No concerning hepatic lesions are seen. GALLBLADDER: Surgically absent BILE DUCTS: No intrahepatic or extrahepatic ductal dilatation. SPLEEN: Normal size. No focal lesions. PANCREAS: No identified cystic or solid masses. No significant calcifications. No adjacent inflammation or peripancreatic fluidcollections. Pancreatic duct not dilated. ADRENALS: Normal. KIDNEYS/URINARY TRACT: No identified significant cystic or solid masses.No stones. No hydronephrosis or hydroureter. Interval right nephrectomy. No abnormal soft tissue in the surgical bed to suggest the presence of residual/recurrent disease.. GI: No dilated bowel loops. No obvious wall thickening. No significant diverticular disease. PERITONEUM: No ascites or free air. RETROPERITONEUM: No adenopathy. VASCULATURE: No abdominal aortic aneurysm. MUSCULOSKELETAL: No acute findings. OTHER: No other significant abnormality. IMPRESSION: 1. Interval right nephrectomy. No abnormal soft tissue in the surgicalbed to suggest the presence of residual/recurrent disease. 2. No evidence of metastatic disease to the abdomen. THIS IS AN ELECTRONICALLY VERIFIED FINAL REPORT 07/13/2025 12:23 PM - Electronically signed by Jensen Davis M.D. JA: AMINA Report ID: [id number] Reading Location: [place] [address] Paul Yung MD IMG CT PROCEDURES Final Result * (ABNORMAL) Creatinine, whole blood (07/03/2025 1:47 PM CDT) Creatinine, bld 1.59(H) 0.60 - 1.30 mg/dL Blood 07/03/2025 1:47 PM CDT 07/03/2025 1:53 PM CDT Paul Yung MD LAB BLOOD ORDERABLES Sunday al Result [facility]) 1 [facility] Department [place] [address] * PSA screen (02/19/2023 11:10 AM CDT) PSA-Total 3.07 <=6.20 ng/mL [facility] Comment: Interpretive Data AGE SEX REFERENCE INTERVAL 0 minutes-150 years Female None 0 minutes-49 years Male None 50-59 years Male 0-3.90 60-69 years Male 0-5.40 70-79 years Male 0-6.20 80-150 years Male 0-6.20 The Arnaud PSA Total assay procedure was used. Results from different manufacturers or methods may not be comparable. Serial testing should be performed using the same method. Current interpretive data last revised 22. Blood 02/19/2023 11:1 0 AM CDT 02/19/2023 5:49 PM CDT Abelardo Fletcher MD LAB BLOOD [place]AB[place] [address] [address] Department [place] [address] * COLONOSCOPY (09/18/2013) Colonoscopy Normal Comment:Sigmoid diverticulos is; otherwise, normal. us Historical Provider MD HEALTH MAINTENANCE Final Result from Last 3 Months or Most Recently Relevant to Health Maintenance Insurance T MEDICARE T MEDICARE [employer] MEDICARE Advance Directives For more information, please contact: [phone] Documents on File Type Date Recorded Patient Scrap Iron Loader Expl anation ADVANCE DIRECTIVE 06/29/2022 9:06 AM LIVING WILL * LIMITED - No CPR (Latest Code Status on File) Date Activated Date Inactivated Comments 06/12/2024 4:46 PM Question Answer Comments Cardio Resuscitation: No Chest Compressions Ventilation: No Intubation * Full Code Date Activated Date Inactivated Comments 11/30/2023 1:10 PM 12/01/2023 6:56 PM * Full Code Date Activated Date Inactivated Comments 06/27/2022 12:28 AM 06/28/2022 8:37 PM * Full Code Date Activated Date Inactivated Comments 06/26/2022 8:50 PM 06/27/2022 12:28 AM Care Teams Vehicle Assembler Relationship Specialty Start Date End Date Carol Velazquez NP [address] [facility] [address] [place] [address] PCP - General Hospice and Palliative Medicine 12/25/24 Stephy Buckner PT Physical Therapist Physical Therapy 06/14/22 Carol Velazquez NP [address] [facility] [address] [place] [address] Nurse Practitioner Hospice and Palliative Medicine 09/09/24
--- OUTSIDE RECORDS SUMMARY | 2025-09-30 18:05 | XMS_ITS | Clinical Summary ---
Author Organization [facility] Address [address] [place] [id number] Phone Care Team Providers Care Thread Machine Operator Name Role Phone Unavailable Primary Care Provider Unavailabl e Allergies Active Allergy Reactions Criticality Noted Date Comments [place] And Derivatives Headache Low 01/14/2025 Codeine Headache Low 01/13/2025 Latex Rash Low 01/13/2025 Monosodium Glutamate Headache Low 01/14/2025 Ttlksfi-Bbl-Hoi Reductase Inhibitors Unknown 01/13/2025 Medications aspirin (ECOTRIN EC) 81 mg Tablet, Delayed Release (E.C.) Take 81 mg by mouth daily. Active ezetimibe (ZETIA) 10 mg tablet Take 10 mg by mouth daily. Active folic acid (FOLVITE) 1 mg tablet Take 1 mg by mouth daily. Active tamsulosin (FLOMAX) 0.4 mg capsule Take 0.4 mg by mouth daily. Active cyanocobalamin (VITAMIN B-12) 500 mcg tablet Take 500 mcg by mouth daily. Active solifenacin (VESICARE) 5 mg Tablet Take 5 mg by mouth daily. Active lisinopriL (PRINIVIL) 5 mg tablet Take 5 mg by mouth 2 times daily. Active clonazePAM (KlonoPIN) 0.5 mg TabletIndications :Anxiety disorder, unspecified type Take 1 Tablet (0.5 mg) by mouth nightly as needed for Other (See Comment) (insomnia). 30 Tablet 1 5 Active metoprolol tartrate (LOPRESSOR) 25 mg tabletIndications :moderate hypertension Take 1 Tablet (25 mg) by mouth 2 times daily. 60 Tablet 1 5 Active escitalopram oxalate (LEXAPRO) 20 mg tabletIndications :depression Take 1 Tablet (20 mg) by mouth daily. 30 Tablet 1 5 Active QUEtiapine (SEROquel) 25 mg tabletIndications :insomnia,mood changes Take 1 Tablet (25 mg) by mouth daily with supper. 30 Tablet 1 5 Active traZODone (DESYREL) 50 mg tabletIndications :insomnia Take 1 Tablet (50 mg) by mouth daily at bedtime. 30 Tablet 1 5 Active carbidopa-levodop a (SINEMET CR) 50-200 mg Controlled Release tabletIndications :psychosis associated with Parkinson's disease Take 1 Tablet by mouth daily at bedtime. 30 Tablet 1 5 Active carbidopa-levodop a (SINEMET) 25-100 mg tabletIndications :parkinsonism Take 4 Tablets by mouth daily AND 2.5 Tablets daily with lunch AND 1 Tablet daily at bedtime. 240 Tablet 1 5 Active levothyroxine 112 mcg tabletIndications :hypothyroidism Take 1 Tablet (112 mcg) by mouth daily in the morning. 30 Tablet 1 5 Active sodium chloride (DONNIE 128) 2 % solution Administer 1 Drop in both eyes daily in the morning. 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 01/16/2025 Mixed hyperlipidemia 01/16/2025 Benign prostatic hyperplasia with urinary retent ion 01/16/2025 Severe recurrent major depression with psychotic features 01/15/2025 Overview (01/15/2025): - Assessment & Plan (01/15/2025 3:18 PM CDT): Worsening -lexapor 20 mg AM -seroquel 25 mg at supper Agitation 01/15/2025 Overview (01/15/2025): Worsening client on 1:1 and started seroquel Anxiety disorder 01/15/2025 Assessment & Plan (01/15/2025 3:20 PM CDT): Worsening -klonopin 0.5 mg hs prn 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 No 01/13/2025 Food Insecurity Answer Date Recorded Patient needs follow up regardin 03/08/2025 Transportation Needs Answer Date Record ed Patient needs follow up regardin 03/08/2025 Housing Stability Answer Date Recorded Social/Environmental Concerns No concerns Utility Needs Answer Date Recorded Patient needs follow up regardin 03/08/2025 Sex and Gender Information Value Date Recorded Sex Assigned at Not on file Legal Sex Male 7:22 PM CDT Gender Identity Not on file Sexual Orientation Not on file Last Filed Vital Signs Vital Sign Reading Time Taken Comments Blood Pressure 130/71 01/20/2025 8:29 AM CDT Pulse 74 01/20/2025 8:29 AM CDT Temperature 35.9 C (96.6 F) 01/20/2025 8:29 AM CDT Respiratory Rate 16 01/20/2025 8:29 AM CDT Oxygen Saturation 98% 01/20/2025 8:29 AM CDT Inhaled Oxygen Concentration - - Weight 68 kg (150 lb) 01/14/2025 4:24 PM CDT Height 167.6 cm (5' 6) 01/14/2025 4:24 PM CDT Body Mass Index 24.21 01/14/2025 4:24 PM CDT Plan of Treatment Health Maintenance Due Date Last Done Comments RSV VACCINE (60+ or ) (1 - 1-dose 75+ series) 2017 INFLUENZA VACCINE (#1) 2025 3, 07/12/2022, 06/27/2021, Additional history exists COVID-19 Vaccine (5 - 2024-2 6 season) 2025 07/13/2024, 07/16/2023, 12/20/2020, Additional history exists DTAP/TDAP/TD VACCINES (2 - T d or Tdap) 08/07/2034 08/07/2024 PNEUMOCOCCAL VACCINE 50+ YEARS Completed 0 02/16/2015, 10/29/2007, 10/03/2007 ZOSTER VACCINE Completed 10/05/2019, 06/30, 05/08/2008 Insurance Advance Directives For more information, please contact: [phone] Documents on File Type Date Recorded Patient Triage Nurse Expl anation Advance Directive POA 01/23/2025 12:17 PM Advance Directive POA * Full Code (Latest Code Status on File) Date Activated Date Inactivated Comments 01/14/2025 6:28 PM 01/20/2025 5:55 PM
--- OUTSIDE RECORDS SUMMARY | 2025-09-30 18:05 | XMS_ITS | Clinical Summary ---
Author Organization [facility] Address [address] [place] [address] Phone Care Team Providers Care Professor Of Family Medicine Name Role Phone Rober Carmona MD Primary Care Provider Romina martin Social History Tobacco Use Types Packs/Day Years Used Date Smoking Tobacco: Never Assessed Sex and Gender Information Value Date Recorded Sex Assigned at Not on file Legal Sex Male 11:49 PM CDT Gender Identity Not on file Sexual Orientation Not on file Plan of Treatment Health Maintenance Due Date Last Done Comments Hepatitis C Virus (HCV) Screening 1940 TdaP Immunization 1940 Pneumococcal Immunization (5 0+ years) (1 of 1 - PCV) 1992 Zoster Immunization (1 of 2) 1992 Respiratory Syncytial Virus (RSV) Immunization (Adult) (1 - 1-dose 75+ series) 2017 Medicare Initial AWV G0438 10/29/2019 Influenza Immunization (#1) 2025 10/0 10/2017, 07/30/2017 SARS-COV-2 Immunization ( season) 2025 07/27/2021, 12/20/2020, 11/22/2020 Hepatitis B Immunization Aged Out No longer eligible based on patient's age to complete this topic Human Papillomavirus (HPV) Immunization Aged Out No longer eligible b ased on patient's age to complete this topic Meningococcal Immunization (ACWY) Aged Out No longer eligible b ased on patient's age to complete this topic Rotavirus Immunization Aged Out No lo nger eligible based on patient's age to complete this topic Insurance MEDICARE C [employer] Care Teams Professor Of Family Medicine Relationship Specialty Start Date End Date Rober Carmona MD [address] [place] [address] [place] [address] PCP - General Internal Medicine 02/25/19
--- OUTSIDE RECORDS SUMMARY | 2025-09-30 18:05 | XMS_ITS | Encounter Summary ---
Author Organization [facility] Address [address] [place] [address] Phone Care Team Providers Care Dispute Resolution Specialist Name Role Phone Rober Carmona MD Primary Care Provi alexander Abelardo Fletcher MD Primary Care Provider [phone] Stephy Buckner PT Unavailable Unavailable Carol Velazquez CLAY MAKER Unavailable [phone] Carol Velazquez NP Primary Care Provider [phone] Encounter Details Date Type Department Care Team (Late Contact Info) Description 02/14/2018 Orders Only [facility] ProviderAyad MD [address] [place] [id number] Social History Tobacco Use Types Packs/Day Years Used Date Smoking Tobacco: Former Smokeless Tobacco: Never Comments:Smoking History Pac ks/day: 1.5 Packs Alcohol Use Standard Drinks/Week Comments No 0 (1 standard drink = 0.6 oz pur e alcohol) Sex and Gender Information Value Date Recorded Sex Assigned at Not on file Legal Sex Male 3:24 PM COKE BURNER Gender Identity Not on file Sexual Orientation [...] (Late Contact Info) Description 10/01/2025 4:00 PM COKE BURNER Residential Visit [facility] [address] [place] [address] Carol Velazquez, WARD [address] [facility] [address] [place] [address] documented as of this encounter Procedures Procedure Name Priority Date/Time Associated Diagnosis Comments DISCHARGE LABORATORY CUMULATIVE REPORT 02/14/2018 12:00 AM CDT documented in this encounter Results * DISCHARGE LABORATORY CUMULATIVE REPORT (02/14/2018 12:00 AM CDT) Narrative 02/14/2018 12:00 AM CDT Ordered by an unspecified provider. us Historical Provider LAB BLOOD ORDERABLES Alondra l Result documented in this encounter Visit Diagnoses Not on filedocumented in this encounter Additional Health Concerns Infection Onset Date Last Indicated Resolved Time COVID: Suspected 06/26/2022 06/26/2022 06/26/2022 4:37 PM CDT documented as of this encounter Care Teams Dispute Resolution Specialist Relationship Specialty Start Date End Date Rober Cramona MD PCP - General 01/26/17 05/03/22 Abelardo Flecther MD [address] [place] [address] PCP - General Family Medicine 05/04/22 12/24/24 Carol Velazquez CLAY MAKER [address] [facility] [address] [address] PCP - General Hospice and Palliative Medicine 12/25/24 Stephy Buckner PT Physical Therapist Physical Therapy 06/14/22 Carol Velazquez NP [address] [facility] [address] [place] [address] Nurse Practitioner Hospice and Palliative Medicine 09/09/24 documented as of this encounter
[2025-09-30 19:22] VITALS: BP 172/78; PULSE 81; RESP 17; O2SAT 97
[2025-09-30] MEDS: TRANEXAMIC ACID 1,000 MG/10 ML AMPUL 10 MG TOPICAL (19:39)
[2025-09-30 21:14] VITALS: BP 166/84; PULSE 65; RESP 17; O2SAT 98
[2025-09-30 21:46] VITALS: BP 146/77; PULSE 67; RESP 19; O2SAT 98
[2025-09-30 22:18] VITALS: BP 143/77; PULSE 69; RESP 16; O2SAT 97
== END 2025-09-30 22:24 ==
PROVIDERS: Emergency Provider Registered Nurse
DX: S06.0X0A Concussion without loss of consciousness, initial encounter (principal); S01.01XA Laceration without foreign body of scalp, initial encounter; G20.A1 Parkinson's disease without dyskinesia, without mention of fluctuations; F03.90 Unspecified dementia, unspecified severity, without behavioral disturbance, psychotic disturbance, mood disturbance, and anxiety; I10 Essential (primary) hypertension; E03.9 Hypothyroidism, unspecified; Z66 Do not resuscitate; Z95.1 Presence of aortocoronary bypass graft; Z90.49 Acquired absence of other specified parts of digestive tract; Z90.5 Acquired absence of kidney; Z98.49 Cataract extraction status, unspecified eye; W01.0XXA Fall on same level from slipping, tripping and stumbling without subsequent striking against object, initial encounter
CPT/HCPCS: 12002; 70450; 72125; 90471; 99284; J3290

== ENCOUNTER 2025-10-02 09:03 | Emergency (ER) | payer MEDICARE, SELFPAY ==
--- NOTE | ~2025-10-02 | CT_ITS ---
EXAMINATION: CT brain wo con DATE: 10/02/2025 09:50 INDICATION: Dizziness. TECHNIQUE: Computed tomography (CT) of the head was performed without intravenous contrast. The mA was adjusted according to patient size. Iterative reconstruction technique was employed. The dose-length product was 681.00 mGy-cm. COMPARISON: Head CT 09/30/2025 FINDINGS: There are scattered areas of low attenuation in the cerebral white matter, which is within normal limits for the patient's age. There is no intracranial hemorrhage, acute infarction, or abnormal intracranial mass lesion. The ventricles are normal in size. There are likely changes of ocular lens replacement surgeries. There is mild mucosal thickening in the paranasal sinuses. The mastoid air cells are normal. There are left posterior skin chetna. IMPRESSION: 1. Normal aging brain. Reviewed, dictated and finalized at location [facility] IMPRESSION: 1. Normal aging brain.
[2025-10-02 09:03] VITALS: BP 126/69; PULSE 53; RESP 16; TEMP 36.5; O2SAT 96
--- NOTE | 2025-10-02 09:11 | ECG_ITS ---
Test Date: 2025-10-02 09:11:12 Measurements Intervals Fate Rate: 52 P: 13 DC: 199 QRS: -8 QRSD: 135 T: 28 QT: 469 QTc: 438 Interpretive Statements SINUS BRADYCARDIA RIGHT BUNDLE BRANCH BLOCK BASELINE ARTIFACT- I, II, AVR, V2 ABNORMAL ECG Compared to ECG 09/29/2025 02:49:39 HEART RATE HAS DECREASED Electronically Signed On 10-02-2025 12:41:21 QUALITY ASSURANCE COACH by Lanre Krueger D.O.
[2025-10-02 09:28] VITALS: BP 140/74; PULSE 62; RESP 16; O2SAT 96
[2025-10-02 09:34] LABS: Hematocrit 31.8 % (42.0-52.0); Hemoglobin 10.5 g/dL (14.0-18.0); Immature Granulocyte Percent A 0.3 % (0-0.5); Lymphocytes Absolute Auto 1.13 K/mm3 (0.9-3.2); Mean Corpuscular HGB Conc 33.0 g/dl (32-36); Mean Corpuscular Hemoglobin 33.2 pg (26-34); Mean Corpuscular Volume 100.6 fl (80-100); Nucleated Red Blood Cells Absolute Auto 0.000 K/mm3 (0.0-0.012); Nucleated Red Blood Cells Perc 0.0 % (0.0-0.2); Platelet Count Result 161 k/mm3 (150-375); Red Blood Count 3.16 M/mm3 (4.6-6.20); White Blood Count 6.3 K/mm3 (4.5-10.0)
[2025-10-02 09:55] LABS: Albumin Level 3.4 g/dL (3.5-5.1); Alkaline Phosphatase 77 U/L (38-126); Anion Gap 1 mmol/L (4-12); Aspartate Amino Transferase 27 U/L (17-59); Bilirubin,Total 0.4 mg/dL (0.2-1.3); Blood Urea Nitrogen 18 mg/dL (9-20); Calcium 8.8 mg/dL (8.4-10.2); Carbon Dioxide 28 mmol/L (22-30); Chloride 105 mmol/L (98-107); Estimated CRCL calculation 35 ml/min; Estimated Glomerular Filt Rate 54; Glucose 105 mg/dL (65-110); Potassium 4.1 mmol/L (3.4-5.0); Sodium 134 mmol/L (137-145); Total Protein 6.3 g/dL (6.3-8.2)
[2025-10-02 10:00] LABS: Alanine Aminotransferase < 6 U/L (6-50)
[2025-10-02 10:30] VITALS: BP 130/70; PULSE 49; RESP 18; O2SAT 97
[2025-10-02] MEDS: MECLIZINE HCL 25 MG TABLET PO (10:44)
[2025-10-02 10:45] VITALS: PULSE 63; RESP 16; O2SAT 96
--- NOTE | 2025-10-02 11:43 | ED.DIZZY ---
HPI - Dizziness General Chief Complaint: Dizziness Stated Complaint: dizziness Time Seen by Provider: 10/02/25 09:16 Source: patient and family Mode of arrival: EMS Limitations: no limitations History of Present Illness MD elicited complaint: dizziness, difficulty walking and disequilibrium Pertinent past history: recent head injury and other (Parkinsons) Onset (ago): day(s) (2) Timing: gradual onset Severity: moderate Description: off-balance and difficulty walking History of similar symptoms: No Exacerbating factors: movement/ambulation Relieving factors: remaining still Associated symptoms: denies other symptoms Related Data Home Medications ?Medication ?Instructions ?Recorded ?Confirmed ?Last Taken ?Type acetaminophen 500 mg tablet 500 mg PO DAILY 09/29/25 09/29/25 Unknown History aspirin,buffered (calcium 325 tablet PO HS 09/29/25 09/29/25 Unknown History carbonate-magnesium) 325 mg tablet (Tri-Buffered Aspirin) carbidopa 25 mg-levodopa 100 mg See Rx Instructions .Route .COMPLEX 09/29/25 09/29/25 Unknown History tablet carbidopa ER 50 mg-levodopa 200 mg 1 tablet PO DAILY@1900 09/29/25 09/29/25 Unknown History tablet,extended release cyanocobalamin (vitamin B-12) 500 500 mcg PO DAILY 09/29/25 09/29/25 Unknown History mcg tablet donepezil 23 mg tablet 23 mg PO DAILY 09/29/25 09/29/25 Unknown History ezetimibe 10 mg tablet 10 mg PO DAILY 09/29/25 09/29/25 Unknown History levothyroxine 112 mcg tablet 112 mcg PO DAILY 09/29/25 09/29/25 Unknown History metoprolol tartrate 25 mg tablet 25 mg PO BID 09/29/25 09/29/25 Unknown History polyethylene glycol 3350 17 17 g PO DAILY@0800 09/29/25 09/29/25 Unknown History gram/dose oral powder quetiapine 25 mg tablet 25 mg PO DAILY@0800 09/29/25 09/29/25 Unknown History quetiapine 50 mg tablet 50 mg PO HS 09/29/25 09/29/25 Unknown History white petrolatum-mineral oil 94 1 applic EACH EYE HS 09/29/25 09/29/25 09/27/25 20:00 History %-3 % eye ointment 1 applic tamsulosin 0.4 mg capsule 0.4 mg PO DAILY 09/30/25 09/30/25 Unknown History Allergies Allergy/AdvReac Type Severity Reaction Status Date / Time No Known Allergies Allergy Verified 09/30/25 18:00 Review of Systems Review of Systems: All systems reviewed & are unremarkable except as noted in HPI and below Constitutional: Constitutional: Reports no additional constitutional complaints Eyes: Eyes: Reports no additional eye complaints ENT: Reports system reviewed and no additional complaints, except as documented Cardiovascular: Cardiovascular: Reports no additional cardiovascular complaints Respiratory: Respiratory: Reports no additional respiratory complaints Gastrointestinal: Gastrointestinal: Reports no additional gastrointestinal complaints Musculoskeletal: Musculoskeletal: Reports no additional musculoskeletal complaints Psychiatric: Psychiatric: Reports no additional psychiatric complaints [facility] Past Medical History Medical History Hypothyroidism CABG (coronary artery bypass graft) planned 5 vessel Retinal detachment Several years ago. 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 He has 2 children and she has 2 children. He is retired. Code status: DNR Smoking status: Never smoker Alcohol intake: never Substance use: never Lack of Transportation: No Lack of Food: Never True Current Housing: I Have Housing Concerned About Future Housing: No Difficulty Paying Gas/Electric Bills: No Difficulty Paying for Meds: No Currently Unemployed: No Education: Decline to Answer Difficulty w/ Childcare or Family Care: No Spiritual care concerns: No Exam Narrative: GENERAL: Well-appearing, well-nourished, and in no acute distress. HEAD: Normocephalic, atraumatic. EYES: PERRLA and EOMI. ENT: Nares clear, no rhinorrhea or epistaxis. Mucous membranes moist. NECK: Supple. CHEST: Clear to auscultation. No respiratory distress. HEART: Regular rate and rhythm. No murmur heard. Normal peripheral pulses. ABDOMEN: Soft, nontender, nondistended, normal active bowel sounds. EXTREMITIES: Normal range of motion. No edema. SKIN: Warm, dry, no rash. NEURO: No focal deficits. Alert and oriented x3. PSYCH: Normal mood and affect. Course Course Emergency Course: Patient resting well, notified him and his family about his lab work, CT findings. He has been very unstable with a walker family prefers to take him back to assisted living facility he has some one to care for him 21/05 . he does have wheele chair and transport chart . pt's and daughter will be taking care of him . Vital Signs Vital signs: Vital Signs Temperature 36.5 C 10/02/25 09:03 Pulse Rate 53 L 10/02/25 09:03 Respiratory Rate 16 10/02/25 09:03 Blood Pressure 126/69 10/02/25 09:03 Pulse Oximetry 96 10/02/25 09:03 Temperature 36.5 C 10/02/25 09:03 Pulse Rate 53 L 10/02/25 09:03 Respiratory Rate 16 10/02/25 09:03 Blood Pressure 126/69 10/02/25 09:03 Pulse Oximetry 96 10/02/25 09:03 MDM MDM Narrative Medical decision making narrative: 85-year-old with a history of Parkinson's and with recent fall no having dizzy spells multiple be to CT to make sure he has no subdural however subarachnoid bleed. Along with lab work. Differential Diagnosis Differential Diagnosis: Benign positional vertigo, Parkinson's disease, cerebellar stroke, intracranial hemorrhage. Lab Data 10/02/25 09:28 10/02/25 09:28 Labs: Lab Results 10/02/25 Range/Units 09:28 WBC 6.3 (4.5-10.0) K/mm3 RBC 3.16 L (4.6-6.20) M/mm3 Hgb 10.5 L (14.0-18.0) g/dL Hct 31.8 L (42.0-52.0) % MCV 100.6 H (80-100) fl MCH 33.2 (26-34) pg MCHC 33.0 (32-36) g/dl RDW 12.6 (11.5-14.5) % Plt Count 161 (150-375) k/mm3 MPV 8.4 (7.4-10.4) fl Immature Gran % (Auto) 0.3 (0-0.5) % Neut % (Auto) 65.2 (45.5-73.1) % Lymph % (Auto) 18.1 L (18.3-44.2) % [place] % (Auto) 7.5 (2.6-8.5) % Eos % (Auto) 8.1 H (0-4.4) % Baso % (Auto) 0.8 (0.2-1.2) % Lymph # (Auto) 1.13 (0.9-3.2) K/mm3 [place] # (Auto) 0.5 (0.1-0.6) K/mm3 Eos # (Auto) 0.5 H (0-0.3) K/mm3 Baso # (Auto) 0.1 (0.0-0.1) K/mm3 Abs Immat Gran (auto) 0.02 (0.00-0.031) K/mm3 Absolute Neuts (auto) 4.1 (1.3-6.7) K/mm3 Absolute Nucleated RBC 0.000 (0.0-0.012) K/mm3 Nucleated RBC % 0.0 (0.0-0.2) % Sodium 134 L (137-145) mmol/L Potassium 4.1 (3.4-5.0) mmol/L Chloride 105 (98-107) mmol/L Carbon Dioxide 28 (22-30) mmol/L Anion Gap 1 L (4-12) mmol/L BUN 18 (9-20) mg/dL Creatinine 1.28 (0.7-1.3) mg/dL Estim Creat Clear Calc 35 ml/min Estimated GFR 54 L (59 - ) Glucose 105 (65-110) mg/dL Calcium 8.8 (8.4-10.2) mg/dL Total Bilirubin 0.4 (0.2-1.3) mg/dL AST 27 (17-59) U/L ALT < 6 L (6-50) U/L Alkaline Phosphatase 77 (38-126) U/L Total Protein 6.3 (6.3-8.2) g/dL Albumin 3.4 L (3.5-5.1) g/dL Imaging Data Radiologist's impression: ITS Impressions Head CT 10/02/25 09:52 IMPRESSION: 1. Normal aging brain. ECG Data EKG #1: ECG completion date: 10/02/25 ECG completion time: 09:11 bradycardia (52), sinus rhythm, no ectopy, no ST changes, normal QT and no acute changes Critical Care Time Critical Care Time Critical Care Time: No Discharge Plan Discharge Clinical Impression: Dizziness Patient Disposition: NH Usp/Asst Living Condition: Stable Instructions: Dizziness (ED) Additional Instructions: Fall precautions,Continue home medications, follow with your Neurologist Patient Language: Afghan Prescriptions: New meclizine 12.5 mg tablet 12.5 mg PO TID PRN (Reason: dizziness) Qty: 30 0RF No Action white petrolatum-mineral oil 94-3 % ointment 1 applic EACH EYE HS aspirin,buffd-calcium carb-mag [Tri-Buffered Aspirin] 325 mg tablet 325 tablet PO HS acetaminophen 500 mg tablet 500 mg PO DAILY carbidopa-levodopa 50-200 mg tablet extended release 1 tablet PO DAILY@1900 quetiapine 50 mg tablet 50 mg PO HS quetiapine 25 mg tablet 25 mg PO DAILY@0800 polyethylene glycol 3350 17 gram/dose powder 17 g PO DAILY@0800 metoprolol tartrate 25 mg tablet 25 mg PO BID levothyroxine 112 mcg tablet 112 mcg PO DAILY carbidopa-levodopa 25-100 mg tablet See Rx Instructions .ROUTE .COMPLEX Rx Instructions: Pt 3 tablets at 0700 2.5 tablets at 1100 1 tablet at 1500 ezetimibe 10 mg tablet 10 mg PO DAILY donepezil 23 mg tablet 23 mg PO DAILY cyanocobalamin (vitamin B-12) 500 mcg tablet 500 mcg PO DAILY tamsulosin 0.4 mg capsule 0.4 mg PO DAILY Order Clarification Required [ Duplicate Therapy Order Clarification] 25 mg tablet 25 mg PO TID PRN (Reason: hypertension) Qty: 90 0RF Rx Instructions: Systolic >160 nifedipine 30 mg tablet extended release 30 mg PO DAILY Qty: 30 0RF Follow-up/Referrals: UNKNOWN,DOCTOR [Primary Care Provider] Time of Disposition: 11:49
[2025-10-02 11:45] VITALS: PULSE 56; RESP 18; O2SAT 96
[2025-10-02 12:30] VITALS: BP 127/61; PULSE 56; RESP 20; O2SAT 96
== END 2025-10-02 12:30 ==
PROVIDERS: Emergency Provider Family Medicine
DX: R42 Dizziness and giddiness (principal); G20.A1 Parkinson's disease without dyskinesia, without mention of fluctuations; E03.9 Hypothyroidism, unspecified; Z95.1 Presence of aortocoronary bypass graft; Z90.5 Acquired absence of kidney; Z90.49 Acquired absence of other specified parts of digestive tract; I45.10 Unspecified right bundle-branch block; R00.1 Bradycardia, unspecified
CPT/HCPCS: 36415; 70450; 80053; 85025; 93005; 99284; A9270